=== PATIENT | male | born 1975 | race Caucasian/White ===

== ENCOUNTER 2018-12-11 15:25 | Inpatient (IN) ==
[2018-12-11] MEDS ORDERED: SODIUM CHLORIDE 0.9% 1000ML 1,000 ML IV ONE (15:56)
[2018-12-11] MEDS ORDERED: KETOROLAC TROMETHAMINE 15 MG/ML VIAL IV STA (15:56)
[2018-12-11 16:05] LABS: Basophils # (auto) 0.03 K/uL (0-0.2); Basophils % (auto) 0.2 %; Eosinophils # (auto) 0.47 K/uL (0-0.5); Eosinophils % (auto) 3.9 %; Hematocrit (blood only) 41.2 % (42-52); Immature Granulocytes # (auto) 0.06 K/uL (0.00-0.02); Immature Granulocytes % (auto) 0.5 %; Lymphocytes # (auto) 2.16 K/uL (1.2-3.4); Lymphocytes % (auto) 17.7 %; Mean Corpuscular Hemoglobin 29.5 pg (25-34); Mean Corpuscular Volume 86.7 fL (80-100); Mean Platelet Volume 9.3 fL (7.4-10.4); Monocytes # (auto) 1.44 K/uL (0.11-0.59); Monocytes % (auto) 11.8 %; Neutrophils # (auto) 8.03 K/uL (1.4-6.5); Neutrophils % (auto) 65.9 %; Platelet Count 376 K/uL (130-400); RDW Standard Deviation 41.6 fL (36.4-46.3); Red Blood Count 4.75 M/uL (4.7-6.1); White Blood Count 12.19 K/uL (4.8-10.8)
--- NOTE | 2018-12-11 16:05 | Emergency Department Note ---
History of Present Illness General Chief complaint: Chest Pain Stated complaint: CHEST PAIN History of Present Illness Maximum Pain Intensity: 7 This patient is a 43-year-old male who presents ambulatory to the emergency department for evaluation of constant, sharp, stabbing right-sided chest pain for the last 3 weeks. The pain is worse with deep inspiration and movement. He is also feeling short of breath. He denies any productive cough. He has not taken anything for the pain. He also reports getting sweaty and dizzy today. No cardiac history to his knowledge. The patient quit smoking 1 pack/day a few months ago. He denies any leg pain. No recent travel. The patient is incarcerated. Home Medications Home Medications Medication Instructions Recorded Confirmed Type amlodipine 10 mg PO DAILY 12/11/18 12/11/18 History chlorthalidone 50 mg PO DAILY 12/11/18 12/11/18 History ibuprofen 600 mg PO TID 12/11/18 12/11/18 History omeprazole 40 mg PO DAILY 12/11/18 12/11/18 History Allergies Allergy/AdvReac Type Severity Reaction Status Date / Time No Known Drug Allergies Allergy Unknown Unverified 12/11/18 16:13 Past Med/Surg History Medical History No pertinent past medical history Social History Preferred Language: Ukrainian Communication Ability: Effective Wound Care Coordinator Required: No Beliefs That Will Affect Care: None Current Living Situation: Other Current Living Situation Comment: [facility] Feels Safe at Home: Yes Smoking Status: Former smoker Tobacco Type: cigarettes ; Second Hand Exposure: Yes ; Hx Alcohol Use: No Hx Substance Use: Yes substance use type: opiates and IV drugs Review of Systems A total of 10 systems reviewed and were otherwise negative Physical Exam Vital Signs Vital Signs - 24 hr 12/11/18 15:33 Temperature 37 C Temperature Source Oral Sepsis Recent Fever Within 48 Hours No Sepsis New/Unexplained Change in Mental Status No Sepsis Action Taken by Nursing No Action Required Pulse Rate 111 H Respiratory Rate 20 Respiratory Effort / Characteristics Non-Labored Respiratory Depth Normal Blood Pressure 146/94 H Blood Pressure Mean 111 Pulse Oximetry 93 Oxygen Delivery Method Room Air Constitutional WD/WN, vitals as above Eyes EOM intact bilaterally ENMT external ear and nose normal, oropharynx normal Neck trachea midline Respiratory normal respiratory effort, lungs clear to auscultation Cardiovascular RRR, no murmur, no edema Chest (Breasts) Additional Comments: Minor tenderness to palpation over the anterior right chest. Gastrointestinal (Abdomen) normal bowel sounds, soft, nontender, no hepatosplenomegaly Musculoskeletal no cyanosis or clubbing, extremities motor strength 5/5 Skin no rashes, warm and dry Neurologic Alert and oriented x3. No focal motor deficits. Psychiatric Acting appropriately Course Patient was seen and examined Vital signs including blood pressure were reviewed medications list was verified with patient Labs were obtained, and a saline lock was established EKG was performed and reviewed. The patient was put on a monitor. The patient was given Toradol 15 mg IV for pain. He was hydrated with 1 L of normal saline. Imaging was performed and reviewed Upon reevaluation, the patient was slightly more comfortable. We discussed his work-up. He voiced understanding. We discussed disposition options. He was in agreement to staying in the emergency department. He was ordered an additional dose of Toradol 15 mg IV. The case was discussed with case management and subsequently the [facility] hospitalist service. They agreed to evaluate the patient for possible inpatient management. Patient remained stable in the emergency department. Consultations Consultation #1: Hospitalist service Administered Medications Discontinued Medications Amlodipine Besylate (Norvasc) 10 mg PO DAILY [facility] Stop: 01/11/19 08:59 Last Admin: 12/12/18 08:59 Dose: 10 mg Documented by: [id number] Baclofen (Lioresal) 10 mg PO TID [facility] Stop: 01/10/19 22:29 Last Admin: 12/12/18 14:26 Dose: 10 mg Documented by: [id number] Admin: 12/12/18 08:59 Dose: 10 mg Documented by: [id number] Admin: 12/11/18 22:41 Dose: 10 mg Documented by: [id number] Chlorthalidone (Hygroton) 50 mg PO DAILY [facility] Stop: 01/11/19 08:59 Last Admin: 12/12/18 08:59 Dose: 50 mg Documented by: [id number] Enoxaparin Sodium (Lovenox) 40 mg SQ DAILY@2200 [facility] Stop: 01/10/19 22:29 Last Admin: 12/11/18 22:40 Dose: 40 mg Documented by: [id number] Sodium Chloride (Nss 1000ml) 1,000 mls @ 999 mls/hr IV .Q1H1M ONE Stop: 12/11/18 16:56 Last Infusion: 12/11/18 17:02 Dose: 0 mls/hr Documented by: [id number] Admin: 12/11/18 16:01 Dose: 999 mls/hr Documented by: [id number] Ioversol (Optiray 320 125ml) 120 ml IV ONCE PRN PRN Reason: Interaction Checking Stop: 12/15/18 16:46 Last Admin: 12/11/18 16:47 Dose: 120 ml Documented by: [id number] Ketorolac Tromethamine (Toradol) 15 mg IV NOW STA Stop: 12/11/18 15:57 Last Admin: 12/11/18 16:01 Dose: 15 mg Documented by: [id number] Ketorolac Tromethamine (Toradol) 15 mg IV Q6H PRN PRN Reason: Pain Stop: 12/16/18 21:54 Last Admin: 12/12/18 00:05 Dose: 15 mg Documented by: [id number] Pantoprazole Sodium (Protonix) 40 mg PO DAILY KEITH; Protocol Stop: 01/11/19 08:59 Last Admin: 12/12/18 08:59 Dose: 40 mg Documented by: [id number] Medical Decision Making Medical Records Attestation: I reviewed the patient's medical records. Home Medications Current Medication List: was personally reviewed by me Laboratory Data Attestation: I reviewed the patient's lab results. Result diagrams: 12/12/18 06:42 12/12/18 06:42 Lab Results 12/11/18 12/11/18 12/11/18 Range/Units 15:45 15:45 15:45 WBC 12.19 H (4.8-10.8) K/uL RBC 4.75 (4.7-6.1) M/uL Hgb 14.0 (14.0-18.0) g/dL Hct 41.2 L (42-52) % MCV 86.7 (80-100) fL MCH 29.5 (25-34) pg MCHC 34.0 (32-36) g/dL RDW Std Deviation 41.6 (36.4-46.3) fL RDW Coeff of Elier 13.0 (11.5-14.5) % Plt Count 376 (130-400) K/uL MPV 9.3 (7.4-10.4) fL Immature Gran % (Auto) 0.5 % Neut % (Auto) 65.9 % Lymph % (Auto) 17.7 % Rosebud % (Auto) 11.8 % Eos % (Auto) 3.9 % Baso % (Auto) 0.2 % Immature Gran # (Auto) 0.06 H (0.00-0.02) K/uL Neut # (Auto) 8.03 H (1.4-6.5) K/uL Lymph # (Auto) 2.16 (1.2-3.4) K/uL Rosebud # (Auto) 1.44 H (0.11-0.59) K/uL Eos # (Auto) 0.47 (0-0.5) K/uL Baso # (Auto) 0.03 (0-0.2) K/uL PT 9.9 (9.0-12.0) Seconds INR 1.0 (0.9-1.1) Sodium 137 (136-145) mmol/L Potassium 3.3 L (3.5-5.1) mmol/L Chloride 103 (98-107) mmol/L Carbon Dioxide 27 (21-32) mmol/L Anion Gap 6.0 (3-11) BUN 13 (7-18) mg/dl Creatinine 0.99 (0.6-1.4) mg/dl Est Cr Clr Drug Dosing 169.9 ml/min Est GFR ( Amer) 108.4 Est GFR (Non-Af Amer) 93.6 BUN/Creatinine Ratio 13.4 (10-20) Glucose 112 H (70-99) mg/dl Calcium 9.5 (8.5-10.1) mg/dl Total Bilirubin 0.8 (0.2-1) mg/dl AST 18 (15-37) U/L ALT 28 (12-78) U/L Alkaline Phosphatase 134 H (45-117) U/L Troponin I < 0.015 (0-0.045) ng/ml Total Protein 8.4 H (6.4-8.2) gm/dl Albumin 3.7 (3.4-5.0) gm/dl Globulin 4.7 H (2.5-4.0) gm/dl Albumin/Globulin Ratio 0.8 L (0.9-2) Lipase 42 L (73-393) U/L Imaging Data Attestation: I personally reviewed and interpreted this imaging study as follows: ECG Data Attestation: I personally reviewed and interpreted this ECG as follows: Indication: chest pain Blood Pressure Blood Pressure Findings: Elevated blood pressure MDM Narrative Differential diagnosis: Pulmonary embolus, acute myocardial infarction, cardiac arrhythmia, anemia, thyroid abnormality, pneumothorax, pneumonia, bronchitis, pericarditis, electrolyte imbalance, among others This patient is a 43-year-old male presents to the emergency department for evaluation of right-sided chest pain. On exam, he was tachycardic. O2 was stable EKG shows sinus tachycardia. Troponin was negative. Labs reveal mild leukocytosis and hypokalemia.. The patient reports a family history of PE and he is currently incarcerated. This is what I was most concerned about. We proceeded with a CT. This is consistent with likely metastatic lung CA. There was motion artifact on the CT. There is a slight possibility still for pulmonary embolus. The patient will be likely admitted to the hospitalist service. We will defer to them for further management such as anticoagulation and further imaging Impression & Plan Chest pain, Pulmonary nodules/lesions, multiple Discharge Plan Visit Data *Final* Discharge Date/Time: 12/11/18 21:19 Chief Complaint: Chest Pain Stated Complaint: CHEST PAIN ED Provider: Eduar Durán ED Midlevel Provider: Tasha Villalba Discharge Problem: Chest pain, Pulmonary nodules/lesions, multiple Patient Disposition: Admitted As Inpatient Condition: Good Discharge Instructions Interventions: ED Discharge Assessment Last Done: 12/11/18 21:19
[2018-12-11 16:16] LABS: Prothrombin Time 9.9 Seconds (9.0-12.0)
[2018-12-11 16:18] LABS: Alanine Aminotransferase 28 U/L (12-78); Albumin Level 3.7 gm/dl (3.4-5.0); Aspartate Aminotransferase 18 U/L (15-37); BUN Creatinine Ratio 13.4 (10-20); Blood Urea Nitrogen 13 mg/dl (7-18); Calcium 9.5 mg/dl (8.5-10.1); Carbon Dioxide 27 mmol/L (21-32); Chloride 103 mmol/L (98-107); Creatinine Clr Calc Pharmacy 169.9 ml/min; Est GFR (African American) 108.4; Est GFR (Non-African American) 93.6; Glucose 112 mg/dl (70-99); Lipase 42 U/L (73-393); Potassium 3.3 mmol/L (3.5-5.1); Sodium 137 mmol/L (136-145)
[2018-12-11 16:23] LABS: Albumin Globulin Ratio 0.8 (0.9-2); Alkaline Phosphatase 134 U/L (45-117); Bilirubin,Total 0.8 mg/dl (0.2-1); Globulin 4.7 gm/dl (2.5-4.0); Total Protein 8.4 gm/dl (6.4-8.2); Troponin I < 0.015 ng/ml (0-0.045)
[2018-12-11] MEDS ORDERED: OPTIRAY 320 125ml IV PRN (16:47)
--- NOTE | 2018-12-11 17:08 | CT Scan Report ---
CT angio chest PE protocol CLINICAL HISTORY: 43 years-old Male presenting with right-sided chest pain, family history of pulmona ry embolus. TECHNIQUE: Multidetector CT angiography of the chest was performed after administration of intravenou s contrast. 3-D volumetric and/or maximum intensity projection (MIP) images were subsequently reconst ructed for review. IV contrast: 120 mL of Optiray 320. One or more dose lowering techniques were used consistent with the principles of ALARA (as low as reasonably achievable), including automatic expos ure control, mA or kV adjustment to individual patient size, and/or use of iterative reconstruction. COMPARISON: None. CT DOSE (mGy.cm): The estimated cumulative dose is 794.56 mGy.cm. FINDINGS: Volunteer Patient Representative topogram: Unremarkable. Pulmonary vasculature: The study is suboptimal for the assessment of the pulmonary vascular tree secondary to timing of the contrast bolus and respiratory motion artifact. Allowing for limited image quality, no central fillin g defect to suggest pulmonary embolus. Main pulmonary artery is not enlarged. No flattening of the in terventricular septum. No intracardiac filling defect. No reflux of contrast into the hepatic veins. Remaining chest: Soft tissues: Normal thyroid and thoracic inlet. No axillary, supraclavicular, mediastinal, or hilar lymphadenopathy. Normal aorta. Top normal heart size. No pericardial or pleural effusion. Upper abdom en normal. Lungs and airways: No pneumothorax. Mild bronchial wall thickening evident diffusely. Incidental note made of an azygos fissure. Pulmonary arteries are not significantly enlarged relative to adjacent br onchi. No interlobular septal thickening. Bandlike opacities in the lingula and to a lesser extent th e right middle lobe. Solid peribronchovascular nodule in the right middle lobe measuring approximatel y 13 mm (series 4 image 116). Mild dependent groundglass opacity likely atelectasis. Musculoskeletal: Destructive lytic changes in the T2 vertebral body with mild central predominant hei ght loss. Multiple vague sclerotic foci are also evident. Less well-defined lytic lesion in the T4 an d T10 vertebral bodies. Several sclerotic lesions evident in the sternum. IMPRESSION: 1. Allowing for suboptimal image quality, no evidence of pulmonary embolus. 2. Multiple mixed lytic and sclerotic osseous lesions highly concerning for metastatic disease. Ther e is also a mild pathologic compression deformity of T2. Correlate with an underlying malignancy. Con track welder PET CT for further evaluation. 3. Mild bronchial wall thickening could indicate smoking-related lung injury or bronchitis. 4. Solid 13 mm peribronchovascular nodule in the right middle lobe. This is concerning for either a metastatic focus or primary malignancy. Differential consideration also includes pathologic perihilar lymph node. The report will be called/faxed according to standard departmental protocol. Electronically signed by: Patrick Mccullough M.D. 12/11/2018 5:06 PM
--- NOTE | 2018-12-11 21:03 | History & Physical Report ---
Date of Service December 11, 2018 Assessment & Plan (1) Pulmonary nodules/lesions, multiple: Admit to [facility] on telemetry Vital signs every 4 hours Replenish electrolytes as needed Follow-up CBC CMP daily Consult pulmonary for pulmonary lesions/nodule possible metastatic disease Urine analysis pending Patient has elevated leukocyte count possibly due to bronchitis. Started ceftriaxone and doxycycline empirically. Duo nebs every 4 hours. Symbicort 2 puffs twice daily. DVT prophylaxis with Lovenox Present on Admission?: Yes (2) Hypertension: Appears to be stable Continue amlodipine 10 mg p.o. daily Continue chlorthalidone 50 mg p.o. daily Present on Admission?: Yes (3) Pleurisy: Most likely due to multiple lytic lesions and mild pathologic compression of T2. Possibly nerve block would help. Consider consulting pain management. For thyroid being continue with Toradol 15 mg every 6 hours as needed for pain and baclofen 10mg 3 times daily for muscle spasm. Present on Admission?: Yes History of Present Illness Chief Complaint: Shortness of breath Primary Care Provider: CELE Shah Patient is a 43 years old male prisoner with past medical history of hypertension who presented to the emergency room with a complaint of one sitting pain located at the right side of his chest and radiating from his back to the front of his chest. Patient said he was taking ibuprofen for pain 600 mg p.o. 3 times daily but that did not take care of his pain. Patient said the pain is stabbing and associated with breathing and movements. Patient said that this has been ongoing for at least 1 months. He said he was seen by the medical at the skilled nursing. Patient reports that nothing relieves his pain. Patient reports his appetite is as usual. Patient is mildly obese. Patient said today he was very short of breath and tachycardic and that brought him to the emergency room. He also felt dizzy. Patient denies productive cough. He reports a dry cough. Patient also reports being sweaty on occasions. Patient stop smoking in August. Prior to that he was smoking 1 pack/day for 20 years. Patient also used heroine and opioids but weaned himself off 7 years ago. Labs are reviewed: Viable cell 12.19, hemoglobin 14, hematocrit 41.2, platelets 376, PT 9.9, INR 1, sodium 137, potassium 3.3, AST 18 ALT 28, alkaline phosphatase 134, troponin 0 0.015, lipase 42. CTA of chest was done without the patient possibly had pulmonary embolism. There is no evidence of pulmonary embolism. Multiple mixed lytic and sclerotic osseous lesions highly concerning for metastatic disease. There is also a mild pathological compression deformity of T2. Radiology recommends PET/CT scan for further evaluation. Mild bronchial wall thickening could indicate smoking- related lung injury or bronchitis. Solid 13 mm 30 bronchovascular nodule in the right middle lobe is seen. This is also concern of metastatic focus or primary malignancy. Urine culture pending, procalcitonin pending. Decision was made to admit patient for [facility] Allergies Allergy/AdvReac Type Severity Reaction Status Date / Time No Known Drug Allergies Allergy Unknown Unverified 12/11/18 16:13 Home Medications Home Medications Medication Instructions Recorded Confirmed Type amlodipine 10 mg PO DAILY 12/11/18 12/11/18 History amoxicillin 500 mg PO TID 12/11/18 12/11/18 History chlorthalidone 50 mg PO DAILY 12/11/18 12/11/18 History ibuprofen 600 mg PO TID 12/11/18 12/11/18 History omeprazole 40 mg PO DAILY 12/11/18 12/11/18 History Past Med/Surg History Medical History No pertinent past medical history Social History Preferred Language: Wolof Smoking Status: Former smoker Review of Systems Review of Systems: All systems reviewed & are unremarkable except as noted in HPI & below Physical Exam Constitutional: WD/WN, vitals as above well developed and + obese Eyes: PERRL, conjunctivae normal, anicteric sclerae ENMT: external ear and nose normal, oropharynx normal Neck: trachea midline, no thyromegaly Respiratory: normal respiratory effort Auscultation: + wheezes Cardiovascular: RRR, no murmur, no edema Vessels: normal peripheral pulses and dorsalis pedis pulses present Gastrointestinal (Abdomen): normal bowel sounds, soft, nontender, no hepatosplenomegaly Musculoskeletal: no cyanosis or clubbing, extremities motor strength 5/5 Skin: no rashes, warm and dry Neurologic: patellar DTR's 2+ bilat, sensation intact Psychiatric: A+Ox3, euthymic affect Lymphatic: no cervical or axillary lymphadenopathy Results & Data Vital Signs (Past 12 Hours) Vital Signs Temp Pulse Resp BP Pulse Ox 12/11/18 20:00 96 H 13 133/100 12/11/18 19:30 103 H 15 122/75 12/11/18 19:00 98 H 20 154/98 H 12/11/18 18:30 86 17 137/82 95 12/11/18 18:00 85 17 115/77 96 12/11/18 17:30 86 17 135/90 96 12/11/18 17:15 84 18 119/80 98 12/11/18 16:30 90 17 93 12/11/18 16:04 97 H 18 124/87 94 12/11/18 16:00 101 H 15 94 12/11/18 15:48 110 H 14 96 12/11/18 15:33 37 C 111 H 20 146/94 H 93 Code Status & VTE Plan Code Status Full code VTE Prophylaxis Plan VTE Prophylaxis will be ordered: Yes PG Care Time/CCT Total # of Minutes Spent Total Time Spent with Patient: Total time spent is greater than 50% in coordination of care (as documented) at patient's floor/unit and/or counseling patient:
[2018-12-11] MEDS ORDERED: POLYETHYLENE (MIRALAX) 17 GM PACK PO PRN (21:55)
[2018-12-11] MEDS ORDERED: MAGNESIUM HYDROXIDE SUSP 30 ML UDC PO PRN (21:55)
[2018-12-11] MEDS ORDERED: ALUMINUM/MAGNESIUM SUSP 30 ML UDC PO PRN (21:55)
[2018-12-11] MEDS ORDERED: ACETAMINOPHEN 325 MG TAB PO PRN (21:55)
[2018-12-11] MEDS ORDERED: ONDANSETRON INJ 2 MG/ML 2 ML VIAL IV PRN (21:55)
[2018-12-11] MEDS ORDERED: KETOROLAC TROMETHAMINE 15 MG/ML VIAL IV PRN (21:55)
[2018-12-11] MEDS ORDERED: ZOLPIDEM TARTRATE 5 MG TAB PO PRN (21:55)
[2018-12-11] MEDS ORDERED: ENOXAPARIN INJ 40 MG/0.4 ML SYR SQ SCH (22:30)
[2018-12-11] MEDS: BACLOFEN 10 MG TAB PO SCH (22:41)
[2018-12-12 06:59] LABS: Basophils # (auto) 0.03 K/uL (0-0.2); Basophils % (auto) 0.4 %; Eosinophils # (auto) 0.57 K/uL (0-0.5); Eosinophils % (auto) 7.1 %; Hematocrit (blood only) 37.4 % (42-52); Hemoglobin 12.5 g/dL (14.0-18.0); Immature Granulocytes # (auto) 0.04 K/uL (0.00-0.02); Immature Granulocytes % (auto) 0.5 %; Lymphocytes # (auto) 2.53 K/uL (1.2-3.4); Lymphocytes % (auto) 31.5 %; Mean Corpuscular Hemoglobin 29.3 pg (25-34); Mean Corpuscular Hgb Conc 33.4 g/dL (32-36); Mean Corpuscular Volume 87.6 fL (80-100); Mean Platelet Volume 9.3 fL (7.4-10.4); Monocytes # (auto) 0.81 K/uL (0.11-0.59); Monocytes % (auto) 10.1 %; Neutrophils # (auto) 4.05 K/uL (1.4-6.5); Neutrophils % (auto) 50.4 %; Platelet Count 319 K/uL (130-400); RDW Coefficient of Variation 13.3 % (11.5-14.5); RDW Standard Deviation 42.5 fL (36.4-46.3); Red Blood Count 4.27 M/uL (4.7-6.1); White Blood Count 8.03 K/uL (4.8-10.8)
[2018-12-12 07:31] LABS: BUN Creatinine Ratio 18.3 (10-20); Calcium 8.9 mg/dl (8.5-10.1); Creatinine Clr Calc Pharmacy 176.5 ml/min; Est GFR (African American) 133.4; Est GFR (Non-African American) 115.1
[2018-12-12 07:34] LABS: Albumin Globulin Ratio 0.7 (0.9-2); Bilirubin,Total 0.9 mg/dl (0.2-1)
[2018-12-12] MEDS: BACLOFEN 10 MG TAB PO SCH ×2 (08:59→14:26)
[2018-12-12] MEDS ORDERED: AMLODIPINE BESYLATE 5 MG TAB PO SCH (09:00)
[2018-12-12] MEDS ORDERED: CHLORTHALIDONE 25 MG TAB PO SCH (09:00)
[2018-12-12] MEDS ORDERED: PANTOprazole 40 MG TAB PO SCH (09:00)
[2018-12-12 11:02] VITALS: PULSE 86; TEMP 97.7; O2SAT 93
--- NOTE | 2018-12-12 12:20 | Discharge Summary ---
Date of Service December 12, 2018 Admission HPI Per Admitting Provider Patient is a 43 years old male prisoner with past medical history of hypertension who presented to the emergency room with a complaint of one sitting pain located at the right side of his chest and radiating from his back to the front of his chest. Patient said he was taking ibuprofen for pain 600 mg p.o. 3 times daily but that did not take care of his pain. Patient said the pain is stabbing and associated with breathing and movements. Patient said that this has been ongoing for at least 1 months. He said he was seen by the medical at the [facility]. Patient reports that nothing relieves his pain. Patient reports his appetite is as usual. Patient is mildly obese. Patient said today he was very short of breath and tachycardic and that brought him to the emergency room. He also felt dizzy. Patient denies productive cough. He reports a dry cough. Patient also reports being sweaty on occasions. Patient stop smoking in August. Prior to that he was smoking 1 pack/day for 20 years. Patient also used heroine and opioids but weaned himself off 7 years ago. Labs are reviewed: Viable cell 12.19, hemoglobin 14, hematocrit 41.2, platelets 376, PT 9.9, INR 1, sodium 137, potassium 3.3, AST 18 ALT 28, alkaline phosphatase 134, troponin 0 0.015, lipase 42. CTA of chest was done without the patient possibly had pulmonary embolism. There is no evidence of pulmonary embolism. Multiple mixed lytic and sclerotic osseous lesions highly concerning for metastatic disease. There is also a mild pathological compression deformity of T2. Radiology recommends PET/CT scan for further evaluation. Mild bronchial wall thickening could indicate smoking- related lung injury or bronchitis. Solid 13 mm 30 bronchovascular nodule in the right middle lobe is seen. This is also concern of metastatic focus or primary malignancy. Urine culture pending, procalcitonin pending. Decision was made to admit patient for further evaluation of shortness of breath and [facility] Admission Exam Per Admitting Provider Constitutional: WD/WN, vitals as above well developed and + obese Eyes: PERRL, conjunctivae normal, anicteric sclerae ENMT: external ear and nose normal, oropharynx normal Neck: trachea midline, no thyromegaly Respiratory: normal respiratory effort Auscultation: + wheezes Cardiovascular: RRR, no murmur, no edema Vessels: normal peripheral pulses and dorsalis pedis pulses present Gastrointestinal (Abdomen): normal bowel sounds, soft, nontender, no hepatosplenomegaly Musculoskeletal: no cyanosis or clubbing, extremities motor strength 5/5 Skin: no rashes, warm and dry Neurologic: patellar DTR's 2+ bilat, sensation intact Psychiatric: A+Ox3, euthymic affect Lymphatic: no cervical or axillary lymphadenopathy Principal Diagnosis 1., Intractable back pain, likely secondary to radiculopathy from thoracic spine 2. Right middle lobe mass of unclear etiology, consider primary neoplasm 3. 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 INTEGUMENTARY: Warm, dry, and [place]. HEAD: Normocephalic. EYES: without scleral icterus or trauma. ENT/OROPHARYNX: clear and moist. LYMPHADENOPATHY/NECK: Is supple without lymphadenopathy or meningismus. RESPIRATORY: Lungs clear and equal. CARDIOVASCULAR: Regular rate and rhythm. GI/ABDOMEN: Soft and nontender. No organomegaly or pulsatile mass. No rebound or guarding. Normal bowel sounds. EXTREMITIES: Warm and well perfused. BACK: No CVA tenderness. NEUROLOGICAL: Intact without focal deficits. PSYCHIATRIC: normal affect. MUSCULOSKELETAL: Normally developed with good muscle tone. Discharge Data Allergies Allergy/AdvReac Type Severity Reaction Status Date / Time No Known Drug Allergies Allergy Unknown Unverified 12/11/18 16:13 Consultations 12/11/18 18:55 ED Decision to Admit Stat 12/11/18 21:55 Consult Thoracic Surgery Routine Ordered Studies 12/11/18 15:56 CT angio chest PE protocol Stat CT angio chest PE protocol CLINICAL HISTORY: 43 years-old Male presenting with right-sided chest pain, family history of pulmonary embolus. TECHNIQUE: Multidetector CT angiography of the chest was performed after administration of intravenous contrast. 3-D volumetric and/or maximum intensity projection (MIP) images were subsequently reconstructed for review. IV contrast: 120 mL of Optiray 320. One or more dose lowering techniques were used consistent with the principles of ALARA (as low as reasonably achievable), including automatic exposure control, mA or kV adjustment to individual patient size, and/or use of iterative reconstruction. COMPARISON: None. CT DOSE (mGy.cm): The estimated cumulative dose is 794.56 mGy.cm. 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 Pulmonary vasculature: The study is suboptimal for the assessment of the pulmonary vascular tree secondary to timing of the contrast bolus and respiratory motion artifact. Allowing for limited image quality, no central filling defect to suggest pulmonary embolus. Main pulmonary artery is not enlarged. No flattening of the interventricular septum. No intracardiac filling defect. No reflux of contrast into the hepatic veins. Remaining chest: Soft tissues: Normal thyroid and thoracic inlet. No axillary, supraclavicular, mediastinal, or hilar lymphadenopathy. Normal aorta. Top normal heart size. No pericardial or pleural effusion. Upper abdomen normal. Lungs and airways: No pneumothorax. Mild bronchial wall thickening evident diffusely. Incidental note made of an azygos fissure. Pulmonary arteries are not significantly enlarged relative to adjacent bronchi. No interlobular septal thickening. Bandlike opacities in the lingula and to a lesser extent the right middle lobe. Solid peribronchovascular nodule in the right middle lobe measuring approximately 13 mm (series 4 image 116). Mild dependent groundglass opacity likely atelectasis. Musculoskeletal: Destructive lytic changes in the T2 vertebral body with mild central predominant height loss. Multiple vague sclerotic foci are also evident. Less well-defined lytic lesion in the T4 and T10 vertebral bodies. Several sclerotic lesions evident in the sternum. IMPRESSION: 1. Allowing for suboptimal image quality, no evidence of pulmonary embolus. 2. Multiple mixed lytic and sclerotic osseous lesions highly concerning for metastatic disease. There is also a mild pathologic compression deformity of T2. Correlate with an underlying malignancy. Consider PET CT for further evaluation. 3. Mild bronchial wall thickening could indicate smoking-related lung injury or bronchitis. 4. Solid 13 mm peribronchovascular nodule in the right middle lobe. This is concerning for either a metastatic focus or primary malignancy. Differential consideration also includes pathologic perihilar lymph node. The report will be called/faxed according to standard departmental protocol. Hospital Course (1) Pulmonary nodules/lesions, multiple: The patient was admitted to the hospital after being transported from the [facility] complaining of chest and back pain as described above. CT scan showed questionable right middle lobe finding along with some bronchial thickening that was concerning for bronchitis. Patient appears to been treated for pain at the present with NSAIDs which were ineffective. Addendum: I did speak to Dr. Cuevas regarding the patient's care. He does not feel that the nodule is a mass, but rather lymph node. However, he does have bony destruction which he feels may be metastatic disease. He has no problem with discharging the patient back to [facility]. He is told me he will touch base with the physicians there, 1 of whom is an oncologist for further work-up. Therefore, we will discharge patient back to [facility] today. (2) Hypertension: Appears to be stable Continue amlodipine 10 mg p.o. daily Continue chlorthalidone 50 mg p.o. daily (3) Pleurisy: Most likely due to multiple lytic lesions and mild pathologic compression of T2. Possibly nerve block would help. Consider consulting pain management. For thyroid being continue with Toradol 15 mg every 6 hours as needed for pain and baclofen 10mg 3 times daily for muscle spasm. Total Time Total Time Spent Total Time Spent (In Minutes): Discharge time in excess of 30 minutes. Discharge Plan Discharge Items [facility] Disposition: [facility] Reason For Visit: SOB,PULMONARY LESIONS POSSIBLY METASTATIC Discharge Diagnosis: 1. Right middle lobe mass, concerning for primary neoplasm 2. Thoracic compression/degeneration concerning for local metastasis 3. Possible chronic bronchitis. Condition on Discharge: Good Activity: Resume your previous activity Lifting: Gradually increase as tolerated Non-emergency contact: Primary Care Provider and Specialist Call non-emergency contact if: your symptoms worsen Follow-up/Referrals: Pablo OAKLEY [Primary Care Provider] - Diet: Regular Addtl Attending Provider Instructions: Patient will require further work-up of his discrete lung mass as documented. Suggest pulmonology evaluation and PET CT scan as an outpatient if patient is agreeable. Pending Studies at Discharge: No Stand-Alone Forms: Call Back Authorization, [facility] Skilled Items Patient informed of condition?: Yes Discharge Level of Care: Other Communicable Disease: No Discharge Prognosis: Stable Lines: None Urinary Catheter: No Medications and DC Order Prescriptions: Continued chlorthalidone 50 mg Tablet 50 mg PO DAILY RF: 0 amlodipine 10 mg Tablet 10 mg PO DAILY RF: 0 omeprazole 40 mg Capsule,Delayed Release(Dr/Ec) 40 mg PO DAILY RF: 0 ibuprofen 600 mg Tablet 600 mg PO TID RF: 0 Discontinued amoxicillin 500 mg Capsule 500 mg PO TID RF: 0 Admission Data Admit Date/Time: 12/11/18 20:47 Attending Provider: Samuel Macias Admit Provider: Ryan Du Primary Care Provider: aPblo OAKLEY Other Providers: Jacob Cuevas ; Ryan Du Other Interventions: Discharge Summary Assessment (RN) Last Done: 12/12/18 12:42
[2018-12-12 15:44] VITALS: BP 122/85
--- NOTE | 2018-12-12 16:57 | Family Medicine Progress Note ---
Date of Service December 12, 2018 Assessment & Plan (1) Pulmonary nodules/lesions, multiple: The patient was admitted to the hospital after being transported from the group home complaining of chest and back pain as described above. Patient feels much better. We are awaiting thoracic surgery to evaluate the patient's discrete 1.3 cm nodule. Suspect patient will require further outpatient work-up including a PET CT. (2) Hypertension: Appears to be stable Continue amlodipine 10 mg p.o. daily Continue chlorthalidone 50 mg p.o. daily (3) Pleurisy: I feel that the pain is most likely secondary to thoracic degeneration rather than pleurisy considering CT scan results. Patient tells us that he is currently asymptomatic with no further pain. We will continue to monitor, consider pain management versus palliative care depending on outcome. Subjective Late entry. Patient seen and examined earlier today. Patient tells me that he wants to return to the group home. I did discuss possible need for further work-up and he is willing now to stay. Patient tells me that his pain is completely resolved and is having no shortness of breath or other issues at this time. Review of Systems Review of Systems: All systems reviewed & are unremarkable except as noted in HPI & below Physical Exam Physical Exam: GENERAL: Non-toxic in appearance. INTEGUMENTARY: Warm, dry, and [place]. HEAD: Normocephalic. EYES: without scleral icterus or trauma. ENT/OROPHARYNX: clear and moist. LYMPHADENOPATHY/NECK: Is supple without lymphadenopathy or meningismus. RESPIRATORY: Lungs clear and equal. CARDIOVASCULAR: Regular rate and rhythm. GI/ABDOMEN: Soft and nontender. No organomegaly or pulsatile mass. No rebound or guarding. Normal bowel sounds. EXTREMITIES: Warm and well perfused. BACK: No CVA tenderness. NEUROLOGICAL: Intact without focal deficits. PSYCHIATRIC: normal affect. MUSCULOSKELETAL: Normally developed with good muscle tone. Results & Data Vital Signs (Past 12 Hours) Vital Signs Temp Pulse Resp BP Pulse Ox 12/12/18 15:43 36.5 C 86 18 122/85 93 12/12/18 12:42 36.5 C 86 16 149/86 H 93 12/12/18 11:02 36.5 C 86 16 149/86 H 93 12/12/18 06:55 36.4 C L 67 18 119/72 95 PG Care Time/CCT Total # of Minutes Spent Total Time Spent with Patient: Total time spent is greater than 50% in coordination of care (as documented) at patient's floor/unit and/or counseling patient:
--- NOTE | 2018-12-12 18:34 | Consultation Report ---
DATE OF CONSULTATION: 12/12/2018 REASON FOR CONSULTATION: Possible lung mass. HISTORY OF PRESENT ILLNESS: Bharat Melvin is a 43-year-old male who is incarcerated at [facility] who has had 3 weeks of pain in his right posterior chest radiating around to the front. He denies any traumatic injuries. He has not lost weight. He has had no pulmonary symptoms. He has no hematuria, hematochezia or any other GI or symptoms. Denies any palpitations. Pain has been unremitting and it was "really bad" when he got here yesterday; however, it has resolved at this point and he feels better. He would like to go back to [facility] if possible. I was asked to see him because a CT scan of his chest showed a right hilar abnormality. PAST MEDICAL HISTORY: 1. Obesity. 2. History of cigarette smoking, although he is not smoking now due to the pain on smoking this past summer. 3. Cholelithiasis. 4. Hypertension. PAST SURGICAL HISTORY: Cholecystectomy. MEDICATIONS AT HOME: 1. Amlodipine. 2. Amoxicillin. 3. Chlorthalidone. 4. Omeprazole. 5. Ibuprofen. ALLERGIES: No known drug allergies. SOCIAL HISTORY: The patient is originally from [place], [place]. He is incarcerated at [facility]. He was a smoker but quit smoking this past summer when it was banded in the prisons. FAMILY MEDICAL HISTORY: The patient has 3 children, 5 siblings who are healthy. His mother is still alive. His father at age 39 from metastatic cancer. He stated it started in his bowel and when he was operated on, he developed a deep vein thrombosis with pulmonary emboli. As stated he was only 40. REVIEW OF SYSTEMS: The patient states that his weight has been stable. He denies night sweats. He has had no fevers or chills. He has had no productive cough. He has had no hemoptysis, hematemesis. He has had no hematochezia. He has had no palpitations or chest pain. He has had no joint swelling. He has had no skin breakdown. He has had no visual or auditory symptoms, although he does wear glasses. PHYSICAL EXAMINATION: GENERAL: This is a 5 feet 8 inch, 290 pound male who is awake, alert and oriented. HEENT: He wears glasses. He has no nasolabial flattening. His sclerae are pale, but anicteric. His pupils are equally round. Tongue is midline. He has normal mucosal lesions. He is missing his lower teeth. His upper teeth are in poor repair. He has no oropharyngeal lesions. NECK: Thick, but supple. He has no supraclavicular or cervical lymphadenopathy or neck vein distention. He has no carotid bruits. LUNGS: Clear. HEART: He has a regular rate and rhythm of his heart. ABDOMEN: Obese, soft, nontender. EXTREMITIES: He has no hemosiderin deposition or other evidence of venous insufficiency, but he does have what appears to be lymphedema of his lower extremities. He has no joint effusions. He has excellent peripheral pulses. NEUROLOGIC: Completely intact. LABORATORY DATA: I reviewed his CT scan quite carefully and I believe that this right hilar abnormality noted on CT is a hilar node. It is not really very significant. I see no other lung masses. He does have bony lesions. He has compression fracture of T2. His sternum also has osteolytic lesions. In reviewing his lab work, his white count is normal. Hemoglobin was 14 upon admission. His chemistries are really fairly unremarkable except for low potassium. ASSESSMENT AND PLAN: Bony lesions which could be due to multiple different reasons. He is much improved from a pain standpoint, would like to return to the [facility] tonight. I discussed this with Dr. Macias who is the hospitalist covering. I believe he can go back. We will be in contact with the physicians at [facility] to work this patient up as an outpatient.
== END 2018-12-12 19:34 | DRG 181 ==
LOC: ED 15:25 → SUATTDRO 20:47 → 2W 20:47

== ENCOUNTER 2019-07-26 15:41 | Observation (INO) ==
[2019-07-26] MEDS ORDERED: SODIUM CHLORIDE 0.9% 250 ML IV PRN ×3 (15:59→19:39)
[2019-07-26] MEDS ORDERED: SODIUM CHLORIDE 0.9% 500 ML IV SCH (16:00)
--- NOTE | 2019-07-26 16:09 | Emergency Department Note ---
Impression & Plan Acute hypotension, T-cell lymphoma, Anemia, Weakness ED Provider Note NAME: MICHAEL [id number] RAQUEL AGE: 43 SEX: M : 1975 ARRIVES VIA: Walk-In INFORMANT: Patient ED PROVIDER(S): Blane Dougherty DO CHIEF COMPLAINT: Weakness HPI: Patient is a 43-year-old male with a past medical history SVT, lymphoma who presents to the ER for weakness. Patient has received 3 rounds of chemotherapy this week. He believes he got a dose yesterday. Notes he has been feeling much weaker than usual. He denies any headache, chest pain, shortness of breath, nausea vomiting or diarrhea. No dysuria urgency or frequency. No fevers. He notes he is fatigued with any kind of movement which over time has been getting gradually worse for him. He has had 2 previous transfusion before in the past. His hemoglobin was checked and was referred in as his hemoglobin had trended do wn to 6. He denies any dark tarry stools or bright red blood per rectum. No coughing up blood vomiting blood or pink blood. ROS: See above HPI for pertinent positives & negatives. A total of 10 systems reviewed and were otherwise negative. PAST MEDICAL HISTORY:See Below PAST SURGICAL HISTORY:See Below FAMILY HISTORY:See Below SOCIAL HISTORY:See Below HOME MEDICATIONS:See Below ALLERGIES:See Below VITALS:See Below PHYSICAL EXAMINATION: GENERAL: Sitting up in bed, alert, chronically ill-appearing, disheveled, shackled wearing orange jumpsuit EYE EXAM: normal conjunctiva. PERRL and EOM's grossly intact. OROPHARYNX: no exudate, no erythema, lips, buccal mucosa, and tongue normal and mucous membranes are moist NECK: supple, no nuchal rigidity, no adenopathy, non-tender CHEST: Port in left upper chest LUNGS: Clear to auscultation. Normal chest wall mechanics HEART: no murmurs, S1 normal and S2 normal ABDOMEN: abdomen soft, non-tender, normo-active bowel sounds, no masses, no rebound or guarding. BACK: Back is symmetrical on inspection and there is no deformity, no midline tenderness, no CVA tenderness. SKIN: no rashes and no bruising UPPER EXTREMITIES: upper extremities are grossly normal. LOWER EXTREMITIES: No pitting edema. NEURO EXAM: Normal sensorium, cranial nerves II-XII grossly intact, normal speech, no gross weakness of arms, no gross weakness of legs. MEDICAL DECISION MAKING: Patient is a 43-year-old male who presents the ER for weakness. Patient was found to be hypotensive with systolic pressures in the 80s. He was found to be anemic with a leukopenia as well. INR was unremarkable. BMP with slightly elevated chloride. LFTs troponin was unremarkable. Patient was typed and crossed and given 1 unit PRBCs as well as IV fluids. Systolic blood pressure trended up to the low 100s. Patient was updated bedside. He has no belly pain no other complaints. Discussed with the hospitalist for observation secondary to the hypotension and the anemia. I do favor the anemia secondary to the chemotherapy. EKG was unremarkable. Triage Nursing notes reviewed. Prior medical records reviewed Vital Signs: reviewed and remarkable for hypotensive and tachycardic Differential diagnosis: Differential diagnosis includes etiologies such as diverticulitis, diverticulosis, AVM, coagulopathy, colitis, inflammatory bowel disease, malignancy, Mary Ann-Chaudhry tear, esophagitis, peptic ulcer disease, variceal bleed, gastritis, epistaxis, fissure, hemorrhoids, as well as others were entertained. ER treatment provided: See below Diagnostics interpreted by me: ECG: Sinus rhythm rate of 68 Normal axis No PVCs Normal QTC Cardiac Monitoring: An order was placed for continuous cardiac monitoring. The monitor shows a rate of 75 with sinus rhythm. Laboratory studies: As stated above and show below. Imaging studies: None Consultation(s): none ED COURSE: Procedures: none Critical Care: I have personally spent 32 minutes of critical care time in the direct management of this patient. This includes bedside care, interpretation of diagnostic studies, and testing, discussion with consultants, patient, and family members, and other required patient management activities. This 32 minutes is in excess of all separately billable procedures. 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 Required: No Beliefs That Will Affect Care: None Current Living Situation: Other Current Living Situation Comment: [facility] Feels Safe at Home: Yes Smoking Status: Former smoker Tobacco Type: cigarettes ; Second Hand Exposure: Yes ; Hx Alcohol Use: No Allergies Allergies Allergy/AdvReac Type Severity Reaction Status Date / Time No Known Drug Allergies Allergy Unknown Verified 07/26/19 16:34 Home Meds Home Medications Medication Instructions Recorded Confirmed omeprazole 40 mg PO DAILY 12/11/18 07/26/19 promethazine 25 mg PO TID PRN 06/03/19 07/26/19 amlodipine 5 mg PO DAILY 06/25/19 07/26/19 bisacodyl 5 mg PO DAILY PRN 06/25/19 07/26/19 docusate sodium 100 mg PO BID 06/25/19 07/26/19 magnesium citrate 300 ml PO DAILY PRN 06/25/19 07/26/19 acyclovir 400 mg PO BID 07/17/19 07/26/19 allopurinol 300 mg PO DAILY 07/17/19 07/26/19 fluconazole 400 mg PO DAILY 07/17/19 07/26/19 imipramine HCl 10 mg PO HS 07/17/19 07/26/19 oxycodone 10 mg PO Q4 PRN 07/17/19 07/26/19 sulfamethoxazole-trimethoprim 1 tab PO DAILY 07/17/19 07/26/19 atenolol 50 mg PO DAILY 07/26/19 07/26/19 oxycodone 40 mg PO BID 07/26/19 07/26/19 prednisone 100 mg PO DAILY 07/26/19 07/26/19 Results & Data (ED) Vital Signs Vital Signs - 24 hr 07/26/19 15:45 07/26/19 16:10 07/26/19 17:20 Temperature 36.3 C L Temperature Source Oral Pulse Rate 96 H Pulse Rate [Finger] 61 Respiratory Rate 20 20 Blood Pressure 89/59 L Blood Pressure [Right Arm] 90/61 L Blood Pressure Mean 69 Blood Pressure Mean [Right Arm] 70 Blood Pressure Position Sitting Pulse Oximetry 98 94 Oxygen Delivery Method Room Air Room Air Room Air Sepsis Recent Fever Within 48 Hours No Sepsis New/Unexplained Change in Mental Status No Sepsis Action Taken by Nursing No Action Required 07/26/19 17:50 07/26/19 17:52 07/26/19 18:10 Temperature 36.6 C 36.4 C L Temperature Source Oral Oral Pulse Rate 64 57 L Pulse Rate [Finger] 61 Respiratory Rate 15 12 15 Blood Pressure 102/61 99/55 L Blood Pressure [Right Arm] 102/61 Blood Pressure Mean 74 69 Blood Pressure Mean [Right Arm] 74 Blood Pressure Position Sitting Sitting Pulse Oximetry 99 97 100 Oxygen Delivery Method Room Air Sepsis Recent Fever Within 48 Hours Sepsis New/Unexplained Change in Mental Status Sepsis Action Taken by Nursing Laboratory Data Result diagrams: 07/26/19 16:19 07/26/19 16:19 Lab Results 07/26/19 07/26/19 07/26/19 Range/Units 16:19 16:19 16:19 WBC 2.33 L (4.8-10.8) K/uL RBC 2.59 L (4.7-6.1) M/uL Hgb 7.4 L (14.0-18.0) g/dL Hct 22.3 L (42-52) % MCV 86.1 (80-100) fL MCH 28.6 (25-34) pg MCHC 33.2 (32-36) g/dL RDW Std Deviation 52.2 H (36.4-46.3) fL RDW Coeff of Elier 16.9 H (11.5-14.5) % Plt Count 232 (130-400) K/uL MPV 8.8 (7.4-10.4) fL Immature Gran % (Auto) 0.0 % Neut % (Auto) 91.4 % Lymph % (Auto) 7.7 % [place] % (Auto) 0.9 % Eos % (Auto) 0.0 % Baso % (Auto) 0.0 % Immature Gran # (Auto) 0.00 (0.00-0.02) K/uL Neut # (Auto) 2.13 (1.4-6.5) K/uL Lymph # (Auto) 0.18 L (1.2-3.4) K/uL [place] # (Auto) 0.02 L (0.11-0.59) K/uL Eos # (Auto) 0.00 (0-0.5) K/uL Baso # (Auto) 0.00 (0-0.2) K/uL RBC Morphology Unremarkable PT 10.5 (9.0-12.0) Seconds INR 1.0 (0.9-1.1) APTT 20.1 L (21.0-31.0) Seconds PTT Ratio 0.7 Sodium (136-145) mmol/L Potassium (3.5-5.1) mmol/L Chloride (98-107) mmol/L Carbon Dioxide (21-32) mmol/L Anion Gap (3-11) BUN (7-18) mg/dl Creatinine (0.6-1.4) mg/dl Est Cr Clr Drug Dosing Est GFR ( Amer) Est GFR (Non-Af Amer) BUN/Creatinine Ratio (10-20) Glucose (70-99) mg/dl Calcium (8.5-10.1) mg/dl Total Bilirubin (0.2-1) mg/dl AST (15-37) U/L ALT (12-78) U/L Alkaline Phosphatase (45-117) U/L Troponin I (0-0.045) ng/ml Total Protein (6.4-8.2) gm/dl Albumin (3.4-5.0) gm/dl Globulin (2.5-4.0) gm/dl Albumin/Globulin Ratio (0.9-2) Blood Type A Positive Blood Type Recheck Antibody Screen NEGATIVE Crossmatch See Detail 07/26/19 07/26/19 Range/Units 16:19 16:30 WBC (4.8-10.8) K/uL RBC (4.7-6.1) M/uL Hgb (14.0-18.0) g/dL Hct (42-52) % MCV (80-100) fL MCH (25-34) pg MCHC (32-36) g/dL RDW Std Deviation (36.4-46.3) fL RDW Coeff of Elier (11.5-14.5) % Plt Count (130-400) K/uL MPV (7.4-10.4) fL Immature Gran % (Auto) % Neut % (Auto) % Lymph % (Auto) % [place] % (Auto) % Eos % (Auto) % Baso % (Auto) % Immature Gran # (Auto) (0.00-0.02) K/uL Neut # (Auto) (1.4-6.5) K/uL Lymph # (Auto) (1.2-3.4) K/uL [place] # (Auto) (0.11-0.59) K/uL Eos # (Auto) (0-0.5) K/uL Baso # (Auto) (0-0.2) K/uL RBC Morphology PT (9.0-12.0) Seconds INR (0.9-1.1) APTT (21.0-31.0) Seconds PTT Ratio Sodium 140 (136-145) mmol/L Potassium 4.3 (3.5-5.1) mmol/L Chloride 111 H (98-107) mmol/L Carbon Dioxide 23 (21-32) mmol/L Anion Gap 6.0 (3-11) BUN 15 (7-18) mg/dl Creatinine 1.06 (0.6-1.4) mg/dl Est Cr Clr Drug Dosing Not Reportable Est GFR ( Amer) 99.8 Est GFR (Non-Af Amer) 86.1 BUN/Creatinine Ratio 14.3 (10-20) Glucose 112 H (70-99) mg/dl Calcium 9.1 (8.5-10.1) mg/dl Total Bilirubin 0.5 (0.2-1) mg/dl AST 65 H (15-37) U/L ALT 55 (12-78) U/L Alkaline Phosphatase 233 H (45-117) U/L Troponin I < 0.015 (0-0.045) ng/ml Total Protein 5.8 L (6.4-8.2) gm/dl Albumin 3.0 L (3.4-5.0) gm/dl Globulin 2.8 (2.5-4.0) gm/dl Albumin/Globulin Ratio 1.1 (0.9-2) Blood Type Blood Type Recheck A Positive Antibody Screen Crossmatch Administered Medications Acyclovir (Zovirax) 400 mg PO BID KEITH Stop: 08/25/19 20:59 Last Admin: 07/26/19 20:45 Dose: 400 mg Documented by: [id number] Docusate Sodium (Colace) 100 mg PO BID KEITH Stop: 08/25/19 20:59 Last Admin: 07/26/19 20:45 Dose: 100 mg Documented by: [id number] Oxycodone HCl (Oxycontin) 40 mg PO BID KEITH Stop: 08/09/19 20:59 Last Admin: 07/26/19 20:45 Dose: 40 mg Documented by: [id number] Discontinued Medications Sodium Chloride (Nss) 500 mls @ 999 mls/hr IV .[id number] KEITH Stop: 07/26/19 16:30 Last Infusion: 07/26/19 17:28 Dose: 0 mls/hr Documented by: [id number] Admin: 07/26/19 16:56 Dose: 999 mls/hr Documented by: [id number] Discharge Plan Visit Data *Final* Discharge Date/Time: 07/26/19 19:24 Chief Complaint: Abnormal Labs/Diagnostic Testing Stated Complaint: NEEDS BLOOD TRANSFUSION ED Provider: Blane Dougherty Discharge Problem: Acute hypotension, T-cell lymphoma, Anemia, Weakness Patient Disposition: Admitted As Inpatient Discharge Instructions Interventions: ED Discharge Assessment Last Done: 07/26/19 19:24 Discharge Problem: Anemia Qualifiers: Anemia type: unspecified type Qualified Code(s): D64.9 - Anemia, unspecified
[2019-07-26 16:29] LABS: Hematocrit (blood only) 22.3 % (42-52); Hemoglobin 7.4 g/dL (14.0-18.0); Lymphocytes # (auto) 0.18 K/uL (1.2-3.4); Lymphocytes % (auto) 7.7 %; Mean Corpuscular Hemoglobin 28.6 pg (25-34); Mean Corpuscular Hgb Conc 33.2 g/dL (32-36); Mean Corpuscular Volume 86.1 fL (80-100); Mean Platelet Volume 8.8 fL (7.4-10.4); Monocytes # (auto) 0.02 K/uL (0.11-0.59); Monocytes % (auto) 0.9 %; Neutrophils # (auto) 2.13 K/uL (1.4-6.5); Neutrophils % (auto) 91.4 %; Platelet Count 232 K/uL (130-400); RDW Coefficient of Variation 16.9 % (11.5-14.5); RDW Standard Deviation 52.2 fL (36.4-46.3); Red Blood Count 2.59 M/uL (4.7-6.1); White Blood Count 2.33 K/uL (4.8-10.8)
[2019-07-26 16:39] LABS: Partial Thromboplastin Ratio 0.7; Partial Thromboplastin Time 20.1 Seconds (21.0-31.0); Prothrombin Time 10.5 Seconds (9.0-12.0)
[2019-07-26 16:46] LABS: Alanine Aminotransferase 55 U/L (12-78); Aspartate Aminotransferase 65 U/L (15-37); BUN Creatinine Ratio 14.3 (10-20); Blood Urea Nitrogen 15 mg/dl (7-18); Calcium 9.1 mg/dl (8.5-10.1); Carbon Dioxide 23 mmol/L (21-32); Chloride 111 mmol/L (98-107); Est GFR (African American) 99.8; Est GFR (Non-African American) 86.1; Glucose 112 mg/dl (70-99); Potassium 4.3 mmol/L (3.5-5.1); Sodium 140 mmol/L (136-145)
[2019-07-26 16:51] LABS: Albumin Globulin Ratio 1.1 (0.9-2); Alkaline Phosphatase 233 U/L (45-117); Bilirubin,Total 0.5 mg/dl (0.2-1); Globulin 2.8 gm/dl (2.5-4.0); Total Protein 5.8 gm/dl (6.4-8.2); Troponin I < 0.015 ng/ml (0-0.045)
[2019-07-26 16:58] LABS: RBC Morphology Unremarkable
--- NOTE | 2019-07-26 18:15 | History & Physical Report ---
Date of Service July 26, 2019 Assessment & Plan (1) Symptomatic anemia: 43-year-old male with T-cell lymphoma currently undergoing chemotherapy with CHOP-E, here with symptomatic anemia likely secondary to chemotherapy. Hemoglobin 6.9 at the halfway and 7.4 here on recheck. He does have significant bone marrow involvement. With blood pressure in the 80 systolic here now improving with 1 L normal saline bolus and starting PRBC transfusion -Admit to medical floor with telemetry on observation -transfuse 2 units PRBCs -Follow CBC in the morning -We will likely discharge back to halfway tomorrow (2) Fatigue: Likely secondary to ongoing chemotherapy and anemia -Transfuse PRBCs (3) SVT (supraventricular tachycardia): Was here in the ER 1 week ago with SVT that required adenosine -Continue atenolol with hold parameters (4) Lymphoma: T-cell lymphoma, as above being treated with CHOP-E therapy. -Follows with Dr. Poe at the [facility] -Prednisone 100 mg daily x5 days-he received his last dose at the present on the morning of 07/26/2019 -Continue suppressive therapy with acyclovir, Bactrim, and Diflucan (5) Hypertension: Blood pressures low secondary to anemia -Hold home amlodipine -Can give atenolol with hold parameters for blood pressure less than 100 systolic given that he has SVT-1 to prevent future SVT (6) Chest pain: Chronic, secondary to extensive involvement in the chest and sternum of his lymphoma -Continue home OxyContin 40 mg p.o. twice daily with oxycodone immediate release 10 mg p.o. every 4 hours as needed breakthrough pain -Bowel regimen (7) GERD (gastroesophageal reflux disease): Continue PPI (8) DVT prophylaxis: SCDs Disposition-admit on observation for symptomatic anemia and blood transfusion overnight Likely discharge back to halfway tomorrow History of Present Illness Chief Complaint: Weakness, anemia Primary Care Provider: CELE Shah This patient is a 43-year-old male prisoner with a history of T-cell lymphoma, HTN, SVT, GERD, with a recent prolonged stay for 2 to 3 weeks at [facility] in [place] for induction chemotherapy. He presents to the ER today with significant fatigue, was found to have blood pressures in the 80s systolic, and his daily hemoglobin from the halfway was down to 6.9. He denies any lightheadedness or headache, denies chest pains over his usual chronic chest pain from his cancer, and denies shortness of breath. No abdominal pains, denies any nausea or vomiting, denies hematochezia or melena. His last bowel movement was this morning and was normal. He is actively receiving CHOP-E (etoposide) chemotherapy at the [facility] here, with his last treatment being on 07/22/2019. He is finishing up a 5-day course of prednisone 100 mg daily today. He is known to have extensive bone marrow involvement with his lymphoma as well. He has not had any fevers/sweats/chills. His ANC is normal. He will be admitted on observation for generalized weakness and fatigue likely secondary to chemotherapy-induced anemia. I discussed his case with his oncologist by phone at the time of admission who recommends 2 units of PRBCs to be transfused, but no other work-up needs to be done at this time. Allergies Allergy/AdvReac Type Severity Reaction Status Date / Time No Known Drug Allergies Allergy Unknown Verified 07/26/19 16:34 Home Medications Home Medications Medication Instructions Recorded Confirmed Type omeprazole 40 mg PO DAILY 12/11/18 07/26/19 History promethazine 25 mg PO TID PRN 06/03/19 07/26/19 History amlodipine 5 mg PO DAILY 06/25/19 07/26/19 History bisacodyl 5 mg PO DAILY PRN 06/25/19 07/26/19 History docusate sodium 100 mg PO BID 06/25/19 07/26/19 History magnesium citrate 300 ml PO DAILY PRN 06/25/19 07/26/19 History acyclovir 400 mg PO BID 07/17/19 07/26/19 History allopurinol 300 mg PO DAILY 07/17/19 07/26/19 History fluconazole 400 mg PO DAILY 07/17/19 07/26/19 History imipramine HCl 10 mg PO HS 07/17/19 07/26/19 History oxycodone 10 mg PO Q4 PRN 07/17/19 07/26/19 History sulfamethoxazole-trimethoprim 1 tab PO DAILY 07/17/19 07/26/19 History atenolol 50 mg PO DAILY 07/26/19 07/26/19 History oxycodone 40 mg PO BID 07/26/19 07/26/19 History prednisone 100 mg PO DAILY 07/26/19 07/26/19 History Past Med/Surg History Medical History 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 Beliefs That Will Affect Care: None Current Living Situation: Other Current Living Situation Comment: [facility] Feels Safe at Home: Yes Smoking Status: Former smoker Tobacco Type: cigarettes ; Second Hand Exposure: Yes ; Hx Alcohol Use: No Review of Systems Review of Systems: All systems reviewed & are unremarkable except as noted in HPI & below Physical Exam Constitutional: WD/WN, vitals as above Eyes: + anicteric sclerae and EOM intact bilaterally ENMT: external ear and nose normal, oropharynx normal Neck: trachea midline, no thyromegaly Respiratory: normal respiratory effort, lungs clear to auscultation Cardiovascular: RRR, no murmur, no edema Chest (Breasts): Chest: normal inspection of chest Gastrointestinal (Abdomen): normal bowel sounds, soft, nontender, no hepatosplenomegaly Musculoskeletal: Extremities: extremities normal to inspection; no cyanosis and no clubbing Skin: no rashes, warm and dry Neurologic: moves all extremities and awake; no focal motor deficits Psychiatric: A+Ox3, euthymic affect Lymphatic: no lymphedema Results & Data Results & Data ([facility]) Vital Signs (Past 12 Hours) Vital Signs Temp Pulse Pulse Resp BP BP Pulse Ox 07/26/19 18:10 36.4 C L 57 L 15 99/55 L 100 07/26/19 17:52 36.6 C 64 12 102/61 97 07/26/19 17:50 61 15 102/61 99 07/26/19 17:20 61 20 90/61 L 94 07/26/19 15:45 36.3 C L 96 H 20 89/59 L 98 Laboratory Results 07/26/19 07/26/19 07/26/19 Range/Units 16:30 16:19 16:19 WBC (4.8-10.8) K/uL RBC (4.7-6.1) M/uL Hgb (14.0-18.0) g/dL Hct (42-52) % MCV (80-100) fL MCH (25-34) pg MCHC (32-36) g/dL RDW Std Deviation (36.4-46.3) fL RDW Coeff of Elier (11.5-14.5) % Plt Count (130-400) K/uL MPV (7.4-10.4) fL Immature Gran % (Auto) % Neut % (Auto) % Lymph % (Auto) % [place] % (Auto) % Eos % (Auto) % Baso % (Auto) % Immature Gran # (Auto) (0.00-0.02) K/uL Neut # (Auto) (1.4-6.5) K/uL Lymph # (Auto) (1.2-3.4) K/uL [place] # (Auto) (0.11-0.59) K/uL Eos # (Auto) (0-0.5) K/uL Baso # (Auto) (0-0.2) K/uL RBC Morphology PT 10.5 (9.0-12.0) Seconds INR 1.0 (0.9-1.1) APTT 20.1 L (21.0-31.0) Seconds PTT Ratio 0.7 Sodium 140 (136-145) mmol/L Potassium 4.3 (3.5-5.1) mmol/L Chloride 111 H (98-107) mmol/L Carbon Dioxide 23 (21-32) mmol/L Anion Gap 6.0 (3-11) BUN 15 (7-18) mg/dl Creatinine 1.06 (0.6-1.4) mg/dl Est Cr Clr Drug Dosing Not Reportable Est GFR ( Amer) 99.8 Est GFR (Non-Af Amer) 86.1 BUN/Creatinine Ratio 14.3 (10-20) Glucose 112 H (70-99) mg/dl Calcium 9.1 (8.5-10.1) mg/dl Total Bilirubin 0.5 (0.2-1) mg/dl AST 65 H (15-37) U/L ALT 55 (12-78) U/L Alkaline Phosphatase 233 H (45-117) U/L Troponin I < 0.015 (0-0.045) ng/ml Total Protein 5.8 L (6.4-8.2) gm/dl Albumin 3.0 L (3.4-5.0) gm/dl Globulin 2.8 (2.5-4.0) gm/dl Albumin/Globulin Ratio 1.1 (0.9-2) Blood Type Blood Type Recheck A Positive Antibody Screen Crossmatch 07/26/19 07/26/19 Range/Units 16:19 16:19 WBC 2.33 L (4.8-10.8) K/uL RBC 2.59 L (4.7-6.1) M/uL Hgb 7.4 L (14.0-18.0) g/dL Hct 22.3 L (42-52) % MCV 86.1 (80-100) fL MCH 28.6 (25-34) pg MCHC 33.2 (32-36) g/dL RDW Std Deviation 52.2 H (36.4-46.3) fL RDW Coeff of Elier 16.9 H (11.5-14.5) % Plt Count 232 (130-400) K/uL MPV 8.8 (7.4-10.4) fL Immature Gran % (Auto) 0.0 % Neut % (Auto) 91.4 % Lymph % (Auto) 7.7 % [place] % (Auto) 0.9 % Eos % (Auto) 0.0 % Baso % (Auto) 0.0 % Immature Gran # (Auto) 0.00 (0.00-0.02) K/uL Neut # (Auto) 2.13 (1.4-6.5) K/uL Lymph # (Auto) 0.18 L (1.2-3.4) K/uL [place] # (Auto) 0.02 L (0.11-0.59) K/uL Eos # (Auto) 0.00 (0-0.5) K/uL Baso # (Auto) 0.00 (0-0.2) K/uL RBC Morphology Unremarkable PT (9.0-12.0) Seconds INR (0.9-1.1) APTT (21.0-31.0) Seconds PTT Ratio Sodium (136-145) mmol/L Potassium (3.5-5.1) mmol/L Chloride (98-107) mmol/L Carbon Dioxide (21-32) mmol/L Anion Gap (3-11) BUN (7-18) mg/dl Creatinine (0.6-1.4) mg/dl Est Cr Clr Drug Dosing Est GFR ( Amer) Est GFR (Non-Af Amer) BUN/Creatinine Ratio (10-20) Glucose (70-99) mg/dl Calcium (8.5-10.1) mg/dl Total Bilirubin (0.2-1) mg/dl AST (15-37) U/L ALT (12-78) U/L Alkaline Phosphatase (45-117) U/L Troponin I (0-0.045) ng/ml Total Protein (6.4-8.2) gm/dl Albumin (3.4-5.0) gm/dl Globulin (2.5-4.0) gm/dl Albumin/Globulin Ratio (0.9-2) Blood Type A Positive Blood Type Recheck Antibody Screen NEGATIVE Crossmatch See Detail ECG Additional Comments: Normal sinus rhythm, no ischemic changes, rate 68 Code Status & VTE Plan Code Status DNR, but does wish to be mechanically ventilated if has isolated respiratory failure PG Care Time/CCT Total # of Minutes Spent Total Time Spent with Patient: Total time spent is greater than 50% in coordination of care (as documented) at patient's floor/unit and/or counseling patient: Coding Level of Care Code 41144 OBS Care - Level 3 Diagnoses Symptomatic anemia D64.9 Fatigue R53.83 SVT (supraventricular tachycardia) I47.1 Lymphoma C85.98 Lymphoma site: multiple regions Lymphoma type: unspecified type Hypertension I10 Chest pain R07.9 GERD (gastroesophageal reflux disease) K21.9 DVT prophylaxis Z29.9 (1) Lymphoma Lymphoma site: multiple regions Lymphoma type: unspecified type Qualified Code(s): C85.98 - Non-Hodgkin lymphoma, unspecified, lymph nodes of multiple sites
[2019-07-26] MEDS ORDERED: PROMETHAZINE HCL 25 MG TAB PO PRN (19:39)
[2019-07-26] MEDS ORDERED: ONDANSETRON INJ 2 MG/ML 2 ML VIAL IV PRN (19:39)
[2019-07-26] MEDS ORDERED: OXYCODONE HCL IR 5 MG TAB (IMMEDIATE RELEASE) PO PRN (19:39)
[2019-07-26] MEDS ORDERED: ALUMINUM/MAGNESIUM SUSP 30 ML UDC PO PRN (19:39)
[2019-07-26] MEDS ORDERED: ACETAMINOPHEN 325 MG TAB PO PRN (19:39)
[2019-07-26] MEDS ORDERED: bisacodyL 5 MG TABEC PO PRN (19:46)
[2019-07-26] MEDS: OXYCODONE HCL 40 MG TABCR (OXYCONTIN) PO SCH (20:45)
[2019-07-26] MEDS: DOCUSATE SODIUM 100 MG CAP PO SCH (20:45)
[2019-07-26] MEDS: ACYCLOVIR 400 MG TAB PO SCH (20:45)
[2019-07-26] MEDS ORDERED: IMIPRAMINE HCL 10 MG TAB PO SCH (21:00)
[2019-07-26 23:27] LABS: Hematocrit (blood only) 25.4 % (42-52); Hemoglobin 8.5 g/dL (14.0-18.0)
[2019-07-27] MEDS: HEPARIN 100 UNIT/ML 5ML FLUSH FLUSH PRN ×2 (03:29→13:17)
[2019-07-27 08:11] LABS: Eosinophils # (auto) 0.01 K/uL (0-0.5); Eosinophils % (auto) 0.6 %; Hematocrit (blood only) 25.5 % (42-52); Hemoglobin 8.6 g/dL (14.0-18.0); Lymphocytes % (auto) 28.2 %; Mean Corpuscular Hemoglobin 28.6 pg (25-34); Mean Corpuscular Hgb Conc 33.7 g/dL (32-36); Mean Corpuscular Volume 84.7 fL (80-100); Neutrophils # (auto) 1.26 K/uL (1.4-6.5); Neutrophils % (auto) 71.2 %; Platelet Count 171 K/uL (130-400); RDW Coefficient of Variation 16.6 % (11.5-14.5); Red Blood Count 3.01 M/uL (4.7-6.1); White Blood Count 1.77 K/uL (4.8-10.8)
[2019-07-27] MEDS: OXYCODONE HCL 40 MG TABCR (OXYCONTIN) PO SCH (08:23)
[2019-07-27] MEDS: DOCUSATE SODIUM 100 MG CAP PO SCH (08:24)
[2019-07-27] MEDS: ACYCLOVIR 400 MG TAB PO SCH (08:24)
--- NOTE | 2019-07-27 08:40 | Hospitalist Progress Note ---
Date of Service July 27, 2019 Assessment & Plan (1) Symptomatic anemia: 43-year-old male with T-cell lymphoma currently undergoing chemotherapy with CHOP-E, here with symptomatic anemia likely secondary to chemotherapy. Hemoglobin 6.9 at the long-term and 7.4 here on recheck. He does have significant bone marrow involvement. With blood pressure in the 80 systolic here now improving with 1 L normal saline bolus and starting PRBC transfusion -Admit to medical floor with telemetry on observation -transfuse 2 units PRBCs -Follow CBC in the morning -We will likely discharge back to long-term tomorrow (2) Fatigue: Likely secondary to ongoing chemotherapy and anemia -Transfuse PRBCs (3) SVT (supraventricular tachycardia): Was here in the ER 1 week ago with SVT that required adenosine -Continue atenolol with hold parameters (4) Lymphoma: T-cell lymphoma, as above being treated with CHOP-E therapy. -[facility] -Prednisone 100 mg daily x5 days-he received his last dose at the present on the morning of 07/26/2019 -Continue suppressive therapy with acyclovir, Bactrim, and Diflucan (5) Hypertension: Blood pressures low secondary to anemia -Hold home amlodipine -Can give atenolol with hold parameters for blood pressure less than 100 systolic given that he has SVT-1 to prevent future SVT (6) Chest pain: Chronic, secondary to extensive involvement in the chest and sternum of his lymphoma -Continue home OxyContin 40 mg p.o. twice daily with oxycodone immediate release 10 mg p.o. every 4 hours as needed breakthrough pain -Bowel regimen (7) GERD (gastroesophageal reflux disease): Continue PPI (8) DVT prophylaxis: SCDs Disposition-admit on observation for symptomatic anemia and blood transfusion overnight Likely discharge back to long-term tomorrow Admission and Anticipated Discharge Date Admission Date: July 26, 2019 Results & Data Results & Data ([facility]) Vital Signs (Past 12 Hours) Vital Signs Temp Pulse Pulse Resp BP BP Pulse Ox 07/27/19 07:26 98.2 F 77 18 103/63 94 07/27/19 03:20 98.4 F 66 18 104/67 97 07/27/19 01:00 59 L 07/26/19 23:01 98.2 F 61 18 90/58 L 96 07/26/19 21:54 97.7 F 63 16 94/64 L 97 07/26/19 21:25 97.9 F 72 18 93/60 L 98 07/26/19 20:55 98.2 F 59 L 18 103/66 100 07/26/19 20:40 97.9 F 62 18 108/72 99 PG Care Time/CCT Total # of Minutes Spent Total Time Spent with Patient: Total time spent is greater than 50% in coordination of care (as documented) at patient's floor/unit and/or counseling patient: Coding Diagnoses Symptomatic anemia D64.9 Fatigue R53.83 SVT (supraventricular tachycardia) I47.1 Lymphoma C85.98 Lymphoma site: multiple regions Lymphoma type: unspecified type Hypertension I10 Chest pain R07.9 GERD (gastroesophageal reflux disease) K21.9 DVT prophylaxis Z29.9 (1) Lymphoma Lymphoma site: multiple regions Lymphoma type: unspecified type Qualified Code(s): C85.98 - Non-Hodgkin lymphoma, unspecified, lymph nodes of multiple sites
[2019-07-27 08:44] LABS: Alanine Aminotransferase 65 U/L (12-78); Albumin Level 2.6 gm/dl (3.4-5.0); Aspartate Aminotransferase 66 U/L (15-37); BUN Creatinine Ratio 15.5 (10-20); Bilirubin Direct 0.2 mg/dl (0-0.2); Blood Urea Nitrogen 12 mg/dl (7-18); Calcium 8.4 mg/dl (8.5-10.1); Carbon Dioxide 25 mmol/L (21-32); Chloride 111 mmol/L (98-107); Est GFR (African American) 130.4; Est GFR (Non-African American) 112.5; Glucose 81 mg/dl (70-99); Magnesium 1.8 mg/dl (1.8-2.4); Potassium 3.6 mmol/L (3.5-5.1); Sodium 141 mmol/L (136-145)
[2019-07-27 08:53] LABS: Alkaline Phosphatase 203 U/L (45-117); Bilirubin,Total 0.6 mg/dl (0.2-1)
[2019-07-27] MEDS ORDERED: ATENOLOL 50 MG TABLET PO SCH (09:00)
[2019-07-27] MEDS ORDERED: FLUCONAZOLE 100 MG TAB PO SCH (09:00)
[2019-07-27] MEDS ORDERED: PANTOprazole 40 MG TAB PO SCH (09:00)
[2019-07-27] MEDS ORDERED: allopurinoL 300 MG TAB PO SCH (09:00)
[2019-07-27] MEDS ORDERED: SULFA/TRIMETH 400/80MG TAB PO SCH (09:00)
--- NOTE | 2019-07-27 12:07 | Discharge Summary ---
Date of Service July 27, 2019 Admission HPI Per Admitting Provider This patient is a 43-year-old male prisoner with a history of T-cell lymphoma, HTN, SVT, GERD, with a recent prolonged stay for 2 to 3 weeks at [facility] in [place] for induction chemotherapy. He presents to the ER today with significant fatigue, was found to have blood pressures in the 80s systolic, and his daily hemoglobin from the [facility] was down to 6.9. He denies any lightheadedness or headache, denies chest pains over his usual chronic chest pain from his cancer, and denies shortness of breath. No abdominal pains, denies any nausea or vomiting, denies hematochezia or melena. His last bowel movement was this morning and was normal. He is actively receiving CHOP-E (etoposide) chemotherapy at [facility] here, with his last treatment being on 07/22/2019. He is finishing up a 5-day course of prednisone 100 mg daily today. He is known to have extensive bone marrow involvement with his lymphoma as well. He has not had any fevers/sweats/chills. His ANC is normal. He will be admitted on observation for generalized weakness and fatigue likely secondary to chemotherapy-induced anemia. I discussed his case with his oncologist by phone at the time of admission who recommends 2 units of PRBCs to be transfused, but no other work-up needs to be done at this time. Principal Diagnosis symptoamtic anemia associated with chemotherapy transfusion of 2 u prbc Discharge Exam The patient appeared well Vital signs as documented. Lungs are clear to auscultation and appear unlabored Cardiac exam, Rhythm is regular.. No murmurs, rubs or gallops. Abdominal exam reveals normal bowel sounds, soft non tender, no masses Extremities are nonedematous and both pedal pulses are normal. Neurologic exam is alert and oriented, no focal loss of strength or sensation Skin is without bruises or rashes Psychologically is without concerns for anxiety or depression Discharge Data Allergies Allergy/AdvReac Type Severity Reaction Status Date / Time No Known Drug Allergies Allergy Unknown Verified 07/26/19 16:34 Consultations 07/26/19 17:34 ED Decision to Admit Stat Hospital Course (1) Symptomatic anemia: 43-year-old male with T-cell lymphoma currently undergoing chemotherapy with CHOP-E, here with symptomatic anemia likely secondary to chemotherapy. Hemoglobin 6.9 at the [facility] and 7.4 here on recheck. He does have significant bone marrow involvement. With blood pressure in the 80 systolic here now improving with 1 L normal saline bolus and starting PRBC transfusion -Patient had appropriate rise in hemoglobin after transfusion of 2 units packed red blood cells. Patient will have a repeat laboratories in the middle of the week with differential sent to Dr. Chris Gale who is his oncologist (2) Fatigue: Resolved after transfusion of packed red blood cells (3) SVT (supraventricular tachycardia): Was here in the ER 1 week ago with SVT that required adenosine -Continue atenolol with hold parameters no additional SVT noted (4) Lymphoma: T-cell lymphoma, as above being treated with CHOP-E therapy. -Follow[facility] Poe at the [facility] -Prednisone 100 mg daily x5 days-he received his last dose at the present on the morning of 07/26/2019 -Continue suppressive therapy with acyclovir, Bactrim, and Diflucan (5) Hypertension: Blood pressures low secondary to anemia Blood pressure continues to be low we will recommend holding his amlodipine at time of discharge (6) Chest pain: Chronic, secondary to extensive involvement in the chest and sternum of his lymphoma -Continue home OxyContin 40 mg p.o. twice daily with oxycodone immediate release 10 mg p.o. every 4 hours as needed breakthrough pain -Bowel regimen (7) GERD (gastroesophageal reflux disease): Continue PPI Total Time Total Time Spent Total Time Spent (In Minutes): It required greater than 30 minutes to prepare this patient for discharge Discharge Plan Discharge Items [facility] Disposition[facility] Reason For Visit: SYMPTOMATIC ANEMIA Discharge Diagnosis: symptomatic anemia associated with chemotherapy Activity: Resume your previous activity Non-emergency contact: Oncologist Call non-emergency contact if: you have any medication questions and your symptoms worsen Follow-up/Referrals: Meek Poe DO [Physician] - Pablo OAKLEY [Primary Care Provider] - Diet: Regular Ambulatory Orders: Complete Blood Count with Diff (Routine) Timeframe: 3 Days Location: Determined by Patient Ordered By: Zay Pitts Attending Provider Instructions: please rest and recover, please follow up with Dr Poe have labs checked this week around sunday Pending Studies at Discharge: No Stand-Alone Forms: My [facility] Skilled Items Patient informed of condition?: Yes DNR: Yes Discharge Level of Care: Other Communicable Disease: No Discharge Prognosis: Stable Lines: None Urinary Catheter: No Medications and DC Order Prescriptions: Continued amlodipine 5 mg Tablet 5 mg PO DAILY RF: 0 docusate sodium 100 mg Capsule 100 mg PO BID RF: 0 magnesium citrate Solution 300 ml PO DAILY PRN (Reason: Constipation) RF: 0 bisacodyl 5 mg Tablet 5 mg PO DAILY PRN (Reason: Constipation) RF: 0 sulfamethoxazole-trimethoprim 400-80 mg Tablet 1 tab PO DAILY RF: 0 fluconazole 200 mg Tablet 400 mg PO DAILY RF: 0 acyclovir 400 mg Tablet 400 mg PO BID RF: 0 allopurinol 300 mg Tablet 300 mg PO DAILY RF: 0 imipramine HCl 10 mg Tablet 10 mg PO HS RF: 0 oxycodone 10 mg Tablet 10 mg PO Q4 PRN (Reason: Pain) RF: 0 prednisone 20 mg Tablet 100 mg PO DAILY RF: 0 atenolol 50 mg Tablet 50 mg PO DAILY RF: 0 oxycodone 40 mg Tablet,Oral Only,Ext.Rel.12 Hr 40 mg PO BID RF: 0 omeprazole 40 mg Capsule,Delayed Release(Dr/Ec) 40 mg PO DAILY RF: 0 promethazine 25 mg Tablet 25 mg PO TID PRN (Reason: Nausea) RF: 0 Admission Data Admit Date/Time: 07/26/19 18:19 Attending Provider: Zay Anthony Admit Provider: Sera Yee Primary Care Provider: Pablo OAKLEY Other Providers: Sera Yee Coding Level of Care Code D/C Day Management >30 mins Diagnoses Symptomatic anemia D64.9 Fatigue R53.83 SVT (supraventricular tachycardia) I47.1 Lymphoma C85.98 Lymphoma site: multiple regions Lymphoma type: unspecified type Hypertension I10 Chest pain R07.9 GERD (gastroesophageal reflux disease) K21.9
--- NOTE | 2019-07-28 05:33 | Electrocardiogram Report ---
Test Reason : Blood Pressure : / mmHG Vent. Rate : 068 BPM Atrial Rate : 068 BPM P-R Int : 142 ms QRS Dur : 104 ms QT Int : 424 ms P-R-T Axes : 018 003 015 degrees QTc Int : 450 ms Normal sinus rhythm Normal ECG When compared with ECG of 17-JUL-2019 11:01, Vent. rate has decreased BY 68 BPM Confirmed by Ck Esqueda ([id number]) on 07/28/2019 5:33:10 AM Referred By: [facility] Confirmed By:Ck Esqueda
== END 2019-07-27 13:47 ==
LOC: 2W 15:41 → ED 15:41 → SUATTDRO 18:19 → 2W 19:24

== ENCOUNTER 2019-08-02 12:51 | Observation (INO) ==
[2019-08-02] MEDS ORDERED: SODIUM CHLORIDE 0.9% 1000ML 1,000 ML IV SCH (13:00)
[2019-08-02] MEDS ORDERED: SODIUM CHLORIDE 0.9% 250 ML IV PRN ×3 (13:20→19:43)
--- NOTE | 2019-08-02 13:30 | Emergency Department Note ---
Impression & Plan Symptomatic anemia, Weakness, Neutropenia, Pancytopenia, T-cell lymphoma ED Provider Note NAME: MICHAEL [id number] GARCÍA AGE: 43 SEX: M ARRIVES VIA: Walk-In INFORMANT: [Patient] ED PROVIDER(S): Donato Chambers MD CHIEF COMPLAINT: Abnormal labs PLAN: Disposition: Admitted Condition: [Good] MEDICAL DECISION MAKING: Patient presented to the emergency department because of abnormal labs and weakness. He has a history of T-cell lymphoma. The patient will require transfusion of leuko-reduced/irradiated packed red blood cells. I did discuss the case with Dr. Wolfe of hematology. He agreed with the transfusion. Patient is significantly neutropenic as well. He is not febrile at this point time. He was placed on precautions. Consultation was made with internal medicine. The patient was evaluated for further management. Triage Nursing notes reviewed and agree them. [Prior medical records reviewed]. The patient has been anemic however he is trending down rapidly. Vital Signs: reviewed and remarkable for [no significant abnormalities] Differential diagnosis: Symptomatic anemia, complication of T-cell lymphoma, infection, dehydration, metabolic abnormality, hypo/hyperglycemia, electrolyte disturbance, anemia, hypoxia, cardiac sources, intracerebral event, toxicologic, neurologic, as well as other pathologies. ER treatment provided: Saline hydration Consented for packed transfusion. Diagnostics interpreted by me: ECG: Rate:70 Rhythm:Normal sinus [place]:Normal QRS:Normal ST segements:No elevation or depression. Nonspecific ST Other:No PACs or PVCs Cardiac Monitoring: Cardiac monitoring ordered by me: The patient was placed on continuous cardiac monitoring and observed. It revealed a normal sinus rhythm at 74 beats per minute without ectopy or evidence of dysrhythmia. Laboratory studies: [See below] pancytopenia noted in EMR. Chemistry panel was unremarkable. Consultation(s): Dr. Wolfe of hematology Dr. Kim of internal medicine HPI: 43/M arrives for evaluation of abnormal lab testing. The patient notes associated weakness. He has history of T-cell lymphoma. He has been monitored daily for decreasing blood counts. His hemoglobin today was 6.6 and he was referred to the ER for further management. Patient notes feeling generally weak and worse with exertion. He feels somewhat short of breath with exertion and better with rest. This is been an ongoing problem over the last several months. Patient is currently incarcerated. Pt denies LOC, headache, fevers, chills, diaphoresis, visual changes, neck pain, chest pain, breathing difficulties at rest, nausea, vomiting, abdominal pain, back pain, melena, hematochezia, urinary symptoms, numbness, focal weakness, lymphadenopathy, rash, or other complaints. ROS: See above HPI for pertinent positives & negatives. A total of [10] systems reviewed and were otherwise negative. PAST MEDICAL HISTORY:[See Below] T-cell lymphoma PAST SURGICAL HISTORY:[See Below] FAMILY HISTORY:[See Below] SOCIAL HISTORY:[See Below] incarcerated HOME MEDICATIONS:[See Below] ALLERGIES:[See Below] VITALS:[See Below] PHYSICAL EXAMINATION: GENERAL: Awake, alert, tired-appearing, in no distress HENT: Normocephalic, atraumatic. Oropharynx unremarkable. EYES: Pale conjunctiva. Sclera non-icteric. NECK: Inspection normal. Non-tender. Supple. No nuchal rigidity. FROM. No masses. RESPIRATORY: Clear to auscultation. No wheezes. No rales. Normal respiratory effort. CARDIAC: Normal rate. Normal rhythm. No murmurs. No rubs. Extremities warm and well perfused. Pulses equal. No JVD. GI: Soft, non-distended. No tenderness to palpation. No rebound or guarding. No masses. RECTAL: Deferred. MUSCULOSKELETAL: Atraumatic. Chest examination reveals no tenderness. The back is symmetrical on inspection without obvious abnormality. There is no CVA tenderness to palpation. No joint edema. LOWER EXTREMITIES: Calves are equal size bilaterally and non-tender. 1 edema. No discoloration. NEURO: Normal sensorium. No sensory or motor deficits noted. SKIN: No rash or jaundice noted. ED COURSE: [Critical Care:] [None] Donato Chambers MD Past Med/Surg History Social History Preferred Language: Urugu[place] Communication Ability: Effective Ssas Developer Required: No Beliefs That Will Affect Care: None Current Living Situation: Other Current Living Situation Comment: [facility] Feels Safe at Home: Yes Smoking Status: Former smoker Tobacco Type: cigarettes ; Second Hand Exposure: Yes ; Hx Alcohol Use: No Allergies Allergies Allergy/AdvReac Type Severity Reaction Status Date / Time No Known Drug Allergies Allergy Unknown Verified 06/13/20 13:42 Home Meds Home Medications Medication Instructions Recorded Confirmed omeprazole 40 mg PO DAILY 12/11/18 08/02/19 bisacodyl 5 mg PO DAILY PRN 06/25/19 08/02/19 docusate sodium 100 mg PO BID 06/25/19 08/02/19 acyclovir 400 mg PO BID 07/17/19 08/02/19 allopurinol 300 mg PO DAILY 07/17/19 08/02/19 fluconazole 400 mg PO DAILY 07/17/19 08/02/19 imipramine HCl 10 mg PO HS 07/17/19 08/02/19 oxycodone 10 mg PO Q4 PRN 07/17/19 08/02/19 sulfamethoxazole-trimethoprim 1 tab PO DAILY 07/17/19 08/02/19 atenolol 50 mg PO DAILY 07/26/19 08/02/19 oxycodone 40 mg PO BID 07/26/19 08/02/19 filgrastim [Neupogen] 480 mcg SUBCUT UD 08/02/19 08/02/19 ondansetron HCl (PF) 4 mg IV Q4H PRN 08/02/19 08/02/19 prochlorperazine maleate 10 mg PO QID PRN 08/02/19 08/02/19 [Compazine] Results & Data (ED) Vital Signs Vital Signs - 24 hr 08/02/19 12:54 08/02/19 13:19 08/02/19 13:20 Temperature 36.6 C Temperature Source Oral Pulse Rate 77 71 Pulse Rate from SpO2 Sensor 72 Respiratory Rate 20 25 H Respiratory Effort / Characteristics Non-Labored Respiratory Depth Normal Blood Pressure 106/76 106/64 Blood Pressure Mean 86 70 Blood Pressure Position Sitting Pulse Oximetry 96 99 Oxygen Delivery Method Room Air Room Air Sepsis Recent Fever Within 48 Hours No Sepsis New/Unexplained Change in Mental Status No Sepsis Action Taken by Nursing No Action Required 08/02/19 13:21 08/02/19 13:30 08/02/19 13:31 Temperature Temperature Source Pulse Rate 72 69 72 Pulse Rate from SpO2 Sensor 73 70 70 Respiratory Rate 18 10 L 12 Respiratory Effort / Characteristics Respiratory Depth Blood Pressure 106/65 Blood Pressure Mean 82 Blood Pressure Position Pulse Oximetry 99 95 94 Oxygen Delivery Method Sepsis Recent Fever Within 48 Hours Sepsis New/Unexplained Change in Mental Status Sepsis Action Taken by Nursing Laboratory Data Result diagrams: 08/02/19 13:16 Lab Results 08/02/19 08/02/19 Range/Units 13:16 13:16 Sodium 140 (136-145) mmol/L Potassium 3.4 L (3.5-5.1) mmol/L Chloride 110 H (98-107) mmol/L Carbon Dioxide 24 (21-32) mmol/L Anion Gap 6.0 (3-11) BUN 4 L (7-18) mg/dl Creatinine 0.57 L (0.6-1.4) mg/dl Est Cr Clr Drug Dosing Not Reportable Est GFR ( Amer) 146.8 Est GFR (Non-Af Amer) 126.7 BUN/Creatinine Ratio 6.2 L (10-20) Glucose 86 (70-99) mg/dl Calcium 8.2 L (8.5-10.1) mg/dl Magnesium 1.2 L (1.8-2.4) mg/dl Total Bilirubin 0.9 (0.2-1) mg/dl AST 17 (15-37) U/L ALT 47 (12-78) U/L Alkaline Phosphatase 211 H (45-117) U/L Total Protein 5.4 L (6.4-8.2) gm/dl Albumin 2.6 L (3.4-5.0) gm/dl Globulin 2.8 (2.5-4.0) gm/dl Albumin/Globulin Ratio 0.9 (0.9-2) TSH 1.900 (0.300-4.500) uIu/ml Blood Type A Positive Antibody Screen NEGATIVE Crossmatch See Detail Administered Medications Sodium Chloride (Nss 1000ml) 1,000 mls @ 125 mls/hr IV .Q8H KEITH Stop: 08/02/19 20:59 Last Infusion: 08/02/19 14:45 Dose: 0 mls/hr Documented by: [id number] Admin: 08/02/19 13:30 Dose: 125 mls/hr Documented by: [id number] Discharge Plan Visit Data Chief Complaint: Abnormal Labs/Diagnostic Testing Stated Complaint: ABNORMAL LABS ED Provider: Donato Chambers Discharge Problem: Symptomatic anemia, Weakness, Neutropenia, Pancytopenia, T-cell lymphoma Discharge Instructions Interventions: ED Discharge Assessment Last Done: 08/02/19 14:45
[2019-08-02 13:43] LABS: Alanine Aminotransferase 47 U/L (12-78); Albumin Level 2.6 gm/dl (3.4-5.0); Aspartate Aminotransferase 17 U/L (15-37); BUN Creatinine Ratio 6.2 (10-20); Blood Urea Nitrogen 4 mg/dl (7-18); Calcium 8.2 mg/dl (8.5-10.1); Carbon Dioxide 24 mmol/L (21-32); Chloride 110 mmol/L (98-107); Est GFR (African American) 146.8; Est GFR (Non-African American) 126.7; Glucose 86 mg/dl (70-99); Magnesium 1.2 mg/dl (1.8-2.4); Potassium 3.4 mmol/L (3.5-5.1); Sodium 140 mmol/L (136-145)
[2019-08-02 13:53] LABS: Albumin Globulin Ratio 0.9 (0.9-2); Alkaline Phosphatase 211 U/L (45-117); Bilirubin,Total 0.9 mg/dl (0.2-1); Globulin 2.8 gm/dl (2.5-4.0); Total Protein 5.4 gm/dl (6.4-8.2)
--- NOTE | 2019-08-02 14:01 | History & Physical Report ---
Date of Service August 02, 2019 Assessment & Plan (1) Symptomatic anemia: As per plan from Dr Poe Transfuse 2 units irradiated PRBCs Repeat CBC after this to assess need for continued transfusions (2) Neutropenia: Isolation precautions - neutropenia (3) Pancytopenia due to antineoplastic chemotherapy: No current bleeding to suggest need for platelet transfusion Neutropenic precautions as above (4) T-cell lymphoma: Follow up with Dr Poe as previously arranged Continue outpatient pain regimen with Oxycontin KEITH and oxycodone for breakthrough pain Continue outpatient anti-nausea regimen with ondansetron and promethazine Continue outpatient chronic prophylactic with fluconazole/acyclovir/Bactrim Continue allopurinol to reduce risk of hyperuricemia (5) History of paroxysmal supraventricular tachycardia: Continue atenolol 50mg PO daily with hold parameters (6) GERD (gastroesophageal reflux disease): Switch omeprazole for pantoprazole as per hospital formulary (7) DVT prophylaxis: Chemical prophylaxis contraindicated given current anemia and thrombocytopenia SCDs Admission and Anticipated Discharge Date Admission Date: 08/02/2019 Anticipated date of discharge: 08/03/19 History of Present Illness Primary Care Provider: CELE Shah Bharat Melvin is a 43 year old male with T-cell lymphoma, HTN, SVT, GERD and recent anemia requiring blood transfusion who presents to the ER due to anemia and generalized fatigue. He notes ongoing chest pain that is at his baseline due to the lymphoma which did not change during or after his last admission with blood transfusions. He is short of breath / fatigued/off legs when walking only 2 steps but again this has not changed since his recent discharge. Hgb on most recent admission last week was 6.9 (required 2 units PRBCs), discharge Hgb 8.6. Currently trended down to 6.6. In addition he is currently neutropenic with thrombocytopenia. Continues on CHOP-E chemotherapy. Not currently taking prednisone. Abdominal pain at baseline, no nasuea or vomiting, no change in bowels. He denies any melena, red blood in stool, external bleeding bruising, hemoptysis, hematemesis. No fevers. ER physician discussed with Dr Poe and recommended 2 units leuk reduced, irradiated packed RBCs transfusion. Allergies Allergy/AdvReac Type Severity Reaction Status Date / Time No Known Drug Allergies Allergy Unknown Verified 08/02/19 13:42 Home Medications Home Medications Medication Instructions Recorded Confirmed Type omeprazole 40 mg PO DAILY 12/11/18 08/02/19 History bisacodyl 5 mg PO DAILY PRN 06/25/19 08/02/19 History docusate sodium 100 mg PO BID 06/25/19 08/02/19 History acyclovir 400 mg PO BID 07/17/19 08/02/19 History allopurinol 300 mg PO DAILY 07/17/19 08/02/19 History fluconazole 400 mg PO DAILY 07/17/19 08/02/19 History imipramine HCl 10 mg PO HS 07/17/19 08/02/19 History oxycodone 10 mg PO Q4 PRN 07/17/19 08/02/19 History sulfamethoxazole-trimethoprim 1 tab PO DAILY 07/17/19 08/02/19 History atenolol 50 mg PO DAILY 07/26/19 08/02/19 History oxycodone 40 mg PO BID 07/26/19 08/02/19 History filgrastim [Neupogen] 480 mcg SUBCUT UD 08/02/19 08/02/19 History ondansetron HCl (PF) 4 mg IV Q4H PRN 08/02/19 08/02/19 History prochlorperazine maleate 10 mg PO QID PRN 08/02/19 08/02/19 History [Compazine] Past Med/Surg History Medical History (Updated 08/02/19 @ 17:07 by Carmelo Kim MD) 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 Rivas 06/16/19 Social History Preferred Language: Slovenian Communication Ability: Effective Merchandising Coordinator Required: No Beliefs That Will Affect Care: None Current Living Situation: Other Current Living Situation Comment: [facility] Feels Safe at Home: Yes Smoking Status: Former smoker Tobacco Type: cigarettes ; Second Hand Exposure: Yes ; Hx Alcohol Use: No Review of Systems Review of Systems: All systems reviewed & are unremarkable except as noted in HPI & below Physical Exam Constitutional: well developed; + not well nourished and no acute distress pale appearing Eyes: + conjunctival abnormality (pale) ENMT: external ear and nose normal, oropharynx normal (pale appearing) Neck: trachea midline Respiratory: normal respiratory effort and able to speak in complete sentences; no respiratory distress, no labored breathing and does not use accessory muscles Auscultation: + crackles (fine throughout); no diminished lung sounds Cardiovascular: Rate/Rhythm: regular rate and regular rhythm Heart Sounds: no murmur Vessels: no JVD Extremities: normal capillary refill and + pedal edema; no calf tenderness Gastrointestinal (Abdomen): Inspection/Auscultation: + abdomen distended and normal bowel sounds Percussion/Palpation: + abdomen tender (generalized, mild at baseline) and abdomen soft; no guarding and abdomen not rigid Musculoskeletal: no cyanosis or clubbing, extremities motor strength 5/5 Skin: + pallor; no rashes and no ecchymosis Neurologic: moves all extremities and awake; not confused Psychiatric: A+Ox3, euthymic affect Results & Data Results & Data ([facility]) Vital Signs (Past 12 Hours) Vital Signs Temp Pulse Resp BP Pulse Ox 08/02/19 12:54 36.6 C 77 20 106/76 96 Code Status & VTE Plan Code Status All treatment outside of a cardiac arrest VTE Prophylaxis Plan VTE Prophylaxis will be ordered: Yes PG Care Time/CCT Total # of Minutes Spent Total Time Spent with Patient: Total time spent is greater than 50% in coordination of care (as documented) at patient's floor/unit and/or counseling patient: Coding Level of Care Code 27843 Initial Inpt Care Lvl 2 Diagnoses Symptomatic anemia D64.9 Neutropenia D70.1; T45.1X5A Neutropenia type: secondary to cancer chemotherapy Pancytopenia due to antineoplastic chemotherapy D61.810; T45.1X5A T-cell lymphoma C85.90 History of paroxysmal supraventricular tachycardia Z86.79 GERD (gastroesophageal reflux disease) K21.9 DVT prophylaxis Z29.9 (1) Neutropenia Neutropenia type: secondary to cancer chemotherapy Qualified Code(s): D70.1 - Agranulocytosis secondary to cancer chemotherapy; T45.1X5A - Adverse effect of antineoplastic and immunosuppressive drugs, initial encounter
[2019-08-02] MEDS ORDERED: bisacodyL 5 MG TABEC PO PRN (16:32)
[2019-08-02] MEDS ORDERED: PROCHLORPERAZINE MALEATE 10 MG TAB PO PRN (16:32)
[2019-08-02] MEDS ORDERED: ONDANSETRON INJ 2 MG/ML 2 ML VIAL IV PRN (16:32)
[2019-08-02] MEDS ORDERED: POTASSIUM CHLORIDE 20 MEQ TABCR PO STA (16:40)
[2019-08-02] MEDS: OXYCODONE HCL IR 5 MG TAB (IMMEDIATE RELEASE) PO PRN (17:31)
[2019-08-02] MEDS: MAGNESIUM OXIDE 400 MG TAB PO SCH ×2 (18:21→20:37)
[2019-08-02] MEDS: ACYCLOVIR 400 MG TAB PO SCH (20:36)
[2019-08-02] MEDS: IMIPRAMINE HCL 10 MG TAB PO SCH (20:37)
[2019-08-02] MEDS: OXYCODONE HCL 40 MG TABCR (OXYCONTIN) PO SCH (20:37)
[2019-08-02] MEDS: DOCUSATE SODIUM 100 MG CAP PO SCH (20:37)
[2019-08-02] MEDS: SODIUM CHLORIDE 0.9% 1000ML 1,000 ML IV SCH (22:19)
[2019-08-03 01:07] LABS: Hematocrit (blood only) 27.2 % (42-52); Mean Corpuscular Hgb Conc 33.1 g/dL (32-36); Mean Corpuscular Volume 84.7 fL (80-100); Platelet Count 25 K/uL (130-400); RDW Coefficient of Variation 14.9 % (11.5-14.5); RDW Standard Deviation 46.2 fL (36.4-46.3); Red Blood Count 3.21 M/uL (4.7-6.1); White Blood Count 0.45 K/uL (4.8-10.8)
[2019-08-03] MEDS ORDERED: HEPARIN 100 UNIT/ML 5ML FLUSH FLUSH PRN (01:50)
[2019-08-03] MEDS: OXYCODONE HCL IR 5 MG TAB (IMMEDIATE RELEASE) PO PRN ×2 (01:54→18:24)
[2019-08-03] MEDS: SODIUM CHLORIDE 0.9% 1000ML 1,000 ML IV SCH ×3 (06:20→20:59)
[2019-08-03 07:02] LABS: Basophils # (auto) 0.03 K/uL (0-0.2); Basophils % (auto) 5.6 %; Eosinophils # (auto) 0.02 K/uL (0-0.5); Eosinophils % (auto) 3.7 %; Hematocrit (blood only) 23.9 % (42-52); Hemoglobin 8.1 g/dL (14.0-18.0); Immature Granulocytes # (auto) 0.02 K/uL (0.00-0.02); Immature Granulocytes % (auto) 3.7 %; Lymphocytes # (auto) 0.41 K/uL (1.2-3.4); Lymphocytes % (auto) 75.9 %; Mean Corpuscular Hemoglobin 28.4 pg (25-34); Mean Corpuscular Hgb Conc 33.9 g/dL (32-36); Mean Corpuscular Volume 83.9 fL (80-100); Mean Platelet Volume 10.2 fL (7.4-10.4); Monocytes # (auto) 0.01 K/uL (0.11-0.59); Monocytes % (auto) 1.9 %; Neutrophils # (auto) 0.05 K/uL (1.4-6.5); Neutrophils % (auto) 9.2 %; Platelet Count 22 K/uL (130-400); RDW Coefficient of Variation 14.8 % (11.5-14.5); RDW Standard Deviation 45.4 fL (36.4-46.3); Red Blood Count 2.85 M/uL (4.7-6.1); White Blood Count 0.54 K/uL (4.8-10.8)
[2019-08-03] MEDS: PANTOprazole 40 MG TAB PO SCH (08:08)
[2019-08-03] MEDS: allopurinoL 300 MG TAB PO SCH (08:08)
[2019-08-03] MEDS: MAGNESIUM OXIDE 400 MG TAB PO SCH ×2 (08:08→21:03)
[2019-08-03] MEDS: ATENOLOL 50 MG TABLET PO SCH (08:08)
[2019-08-03] MEDS: SULFA/TRIMETH 400/80MG TAB PO SCH (08:08)
[2019-08-03] MEDS: FLUCONAZOLE 100 MG TAB PO SCH (08:08)
[2019-08-03] MEDS: DOCUSATE SODIUM 100 MG CAP PO SCH ×2 (08:08→21:03)
[2019-08-03] MEDS: ACYCLOVIR 400 MG TAB PO SCH ×2 (08:08→21:03)
[2019-08-03] MEDS: OXYCODONE HCL 40 MG TABCR (OXYCONTIN) PO SCH ×2 (08:11→21:05)
--- NOTE | 2019-08-03 10:00 | Electrocardiogram Report ---
Test Reason : Blood Pressure : / mmHG Vent. Rate : 070 BPM Atrial Rate : 070 BPM P-R Int : 146 ms QRS Dur : 098 ms QT Int : 408 ms P-R-T Axes : 016 001 017 degrees QTc Int : 440 ms Normal sinus rhythm Nonspecific T wave abnormality Abnormal ECG When compared with ECG of 26-JUL-2019 16:10, Nonspecific T wave abnormality is now present Confirmed by Hussein Perry ([id number]) on 08/03/2019 9:59:58 AM Referred By: REFERRED SELF Confirmed By:Hussein Perry
--- NOTE | 2019-08-03 10:16 | Hospitalist Progress Note ---
Date of Service August 03, 2019 Assessment & Plan Admission and Anticipated Discharge Date Admission Date: August 02, 2019 43 yo M w/ pMHx. of T-cell lymphoma, HTN, SVT, GERD and recent anemia requiring blood transfusion who presents to the ER due to anemia and generalized fatigue. He notes ongoing chest pain that is at his baseline due to the lymphoma which did not change during or after his last admission with blood transfusions. He is short of breath when walking only 2 steps but again this has not changed since his recent discharge. Hgb on most recent admission last week was 6.9 (required 2 units PRBCs), discharge Hgb 8.6. In addition he is currently neutropenic with thrombocytopenia. Continues on CHOP-E chemotherapy. Not currently taking prednisone. Symptomatic anemia - As per plan from Dr Poe - Transfused 2 units irradiated PRBCs, f/u H&H 8.1 & 23.9 - follow AM CBC Neutropenia - Isolation precautions - neutropenia Pancytopenia due to antineoplastic chemotherapy: - No current bleeding to suggest need for platelet transfusion - Neutropenic precautions as above T-cell lymphoma - Follow up with Dr Poe as previously arranged - Continue outpatient pain regimen with Oxycontin KEITH and oxycodone for breakthrough pain - Continue outpatient anti-nausea regimen with ondansetron and promethazine - Continue outpatient chronic prophylactic with fluconazole/acyclovir/Bactrim - Continue allopurinol to reduce risk of hyperuricemia History of paroxysmal supraventricular tachycardia - Continue atenolol 50mg PO daily with hold parameters GERD (gastroesophageal reflux disease): - Switch omeprazole for pantoprazole as per hospital formulary DVT prophylaxis: - Chemical prophylaxis contraindicated given current anemia and thrombocytopenia SCDs Code: conditional (no chest compressions, no defibrillation), diet: regular Anticipated date of discharge: 08/03/19 Supervising Physician Co-Signing Physician Notes I personally examined the patient and verified all pearson points of history and exam, discussed case, and agree with decision making with Dr Canseco. feeling ok. no new issues. discussed labs. vitals noted nad heent nc at mmm breathing unlabored no accessory muscles good effort skin no rashes no pallor or icterus chemotherapy induced pancytopenia - anemia now better w transfusion. follow counts into tomorrow - if improving then probably can be discharged w close outpt f/u. if not improving or worsening, then would need to consider inpatient heme/onc eval otherwise as above Subjective Mr. Melvin was sitting in bed watching TV when I examined him. He stated that he was doing okay, but was experiencing 6/10 chest pain that is chronic for him he states that it is improved from 8/10 after taking pain medication. He mentioned that he peeled off the tape from the IV that had been discontinued, it had been several hours since the IV was removed but the site did bleed. He held pressure to the site and the bleeding stopped. He mentioned he does not have any other sources of bleeding at this time. Review of Systems Review of Systems: constitutional: denies fevers or chills cardiac: admits chest pain, denies palpitations GI: denies nausea or vomiting pulm: denies cough or shortness of breath : denies increased urinary frequency, urgency or pressure Physical Exam Constitutional: WD/WN, vitals as above Neck: normal visual inspection Respiratory: normal respiratory effort, lungs clear to auscultation Cardiovascular: RRR, no murmur, no edema - exquisitely tender to palpation on the central chest Gastrointestinal (Abdomen): - nontender to palpation, soft, no guarding, not rigid Skin: no rashes, warm and dry Psychiatric: A+Ox3, euthymic affect Results & Data Results & Data ([facility]) Vital Signs (Past 12 Hours) Vital Signs Temp Pulse Pulse Resp BP Pulse Ox 08/03/19 07:27 36.5 C 86 18 108/65 96 08/03/19 03:00 36.9 C 81 12 105/63 96 08/03/19 00:00 72 08/02/19 23:00 36.3 C L 71 14 113/72 94 Resident Activity Tracking Resident Involvement: Resident Care Provided Care Provided: Adult Hospital Medicine
--- NOTE | 2019-08-03 17:35 | Billing Data ---
Date of Service August 03, 2019 Coding Level of Care Code 86845 Subseq Hosp Care Lvl 2
[2019-08-03] MEDS: IMIPRAMINE HCL 10 MG TAB PO SCH (21:03)
[2019-08-04] MEDS: SODIUM CHLORIDE 0.9% 1000ML 1,000 ML IV SCH (05:04)
[2019-08-04 06:52] LABS: Hematocrit (blood only) 24.2 % (42-52); Hemoglobin 8.4 g/dL (14.0-18.0); Mean Corpuscular Hemoglobin 28.8 pg (25-34); Mean Corpuscular Hgb Conc 34.7 g/dL (32-36); Mean Corpuscular Volume 82.9 fL (80-100); Mean Platelet Volume 9.9 fL (7.4-10.4); Platelet Count 27 K/uL (130-400); RDW Coefficient of Variation 15.2 % (11.5-14.5); RDW Standard Deviation 45.8 fL (36.4-46.3); Red Blood Count 2.92 M/uL (4.7-6.1); White Blood Count 0.48 K/uL (4.8-10.8)
[2019-08-04 06:57] LABS: BUN Creatinine Ratio 2.8 (10-20); Blood Urea Nitrogen 1 mg/dl (7-18); Calcium 8.5 mg/dl (8.5-10.1); Carbon Dioxide 25 mmol/L (21-32); Chloride 110 mmol/L (98-107); Creatinine Clr Calc Pharmacy 203.9 ml/min; Est GFR (African American) > 150.0; Est GFR (Non-African American) 131.5; Glucose 96 mg/dl (70-99); Potassium 3.3 mmol/L (3.5-5.1); Sodium 140 mmol/L (136-145)
[2019-08-04] MEDS: DOCUSATE SODIUM 100 MG CAP PO SCH (08:06)
[2019-08-04] MEDS: MAGNESIUM OXIDE 400 MG TAB PO SCH (08:13)
[2019-08-04] MEDS: PANTOprazole 40 MG TAB PO SCH (08:14)
[2019-08-04] MEDS: SULFA/TRIMETH 400/80MG TAB PO SCH (08:14)
[2019-08-04] MEDS: ACYCLOVIR 400 MG TAB PO SCH (08:15)
[2019-08-04] MEDS: allopurinoL 300 MG TAB PO SCH (08:15)
[2019-08-04] MEDS: FLUCONAZOLE 100 MG TAB PO SCH (09:15)
[2019-08-04] MEDS ORDERED: POTASSIUM CHLORIDE 20 MEQ TABCR PO ONE (09:15)
[2019-08-04] MEDS: OXYCODONE HCL 40 MG TABCR (OXYCONTIN) PO SCH (09:16)
[2019-08-04] MEDS: ATENOLOL 50 MG TABLET PO SCH (09:16)
[2019-08-04] MEDS ORDERED: PROCHLORPERAZINE MALEATE 10 MG TAB PO STA (09:42)
--- NOTE | 2019-08-04 11:07 | Discharge Summary ---
Date of Service August 04, 2019 Admission HPI Per Admitting Provider Bharat Melvin is a 43 year old male with T-cell lymphoma, HTN, SVT, GERD and recent anemia requiring blood transfusion who presents to the ER due to anemia and generalized fatigue. He notes ongoing chest pain that is at his baseline due to the lymphoma which did not change during or after his last admission with blood transfusions. He is short of breath / fatigued/off legs when walking only 2 steps but again this has not changed since his recent discharge. Hgb on most recent admission last week was 6.9 (required 2 units PRBCs), discharge Hgb 8.6. Currently trended down to 6.6. In addition he is currently neutropenic with thrombocytopenia. Continues on CHOP-E chemotherapy. Not currently taking prednisone. Abdominal pain at baseline, no nasuea or vomiting, no change in bowels. He denies any melena, red blood in stool, external bleeding bruising, hemoptysis, hematemesis. No fevers. ER physician discussed with Dr Poe and recommended 2 units leuk reduced, irradiated packed RBCs transfusion. Principal Diagnosis anemia Discharge Exam Constitutional WD/WN, vitals as above Eyes PERRL, conjunctivae normal, anicteric sclerae ENMT external ear and nose normal, oropharynx normal Respiratory normal respiratory effort, lungs clear to auscultation Cardiovascular RRR, no murmur, no edema Gastrointestinal (Abdomen) normal bowel sounds, soft, nontender, no hepatosplenomegaly Skin no rashes, warm and dry Psychiatric A+Ox3, euthymic affect Discharge Data Allergies Allergy/AdvReac Type Severity Reaction Status Date / Time No Known Drug Allergies Allergy Unknown Verified 08/02/19 13:42 Consultations 08/02/19 15:11 ED Decision to Admit Stat Hospital Course (1) Pancytopenia due to antineoplastic chemotherapy: 43 yo M w/ pMHx. of T-cell lymphoma, HTN, SVT, GERD and recent anemia requiring blood transfusion who presents to the ER due to anemia and generalized fatigue and SOB. He notes ongoing chest pain that is at his baseline due to the lymphoma which did not change during or after his last admission with blood transfusions. Hgb on most recent admission last week was 6.9 (required 2 units PRBCs), discharge Hgb 8.6. In addition he is currently neutropenic and thrombocytopenic with ongoing CHOP-E chemotherapy. Not currently taking prednisone. The following is the medical management during stay here: Symptomatic anemia - Per discussion with Dr. Poe recommended 2 units leuk reduced, irradiated packed RBCs transfusion - f/u H&H stable. On day of d/c, hgb 8.4 hct 24.2 -please repeat CBC with diff in 3 days time, send results to Dr. Poe who is his oncologist Neutropenia - Isolation precautions - neutropenia Pancytopenia due to antineoplastic chemotherapy: - No current bleeding to suggest need for platelet transfusion -plts 27 on day of d/c -WBC 0.45 on day of d/c -neopogen held this admission, will resume on d/c T-cell lymphoma - Follow up with Dr Poe as previously arranged, August 12, 2019 - Continued outpatient pain regimen with Oxycontin KEITH and oxycodone for breakthrough pain - Continued outpatient anti-nausea regimen with ondansetron and promethazine - Continued outpatient chronic prophylactic with fluconazole/acyclovir/Bactrim - Continued allopurinol to reduce risk of hyperuricemia History of paroxysmal supraventricular tachycardia - Continued atenolol 50mg PO daily with hold parameters GERD (gastroesophageal reflux disease): - Switched omeprazole for pantoprazole as per hospital formulary DVT prophylaxis was contraindicated given current anemia and thrombocytopenia, SCDs. At time of d/c, pt had no other acute concerns or complaints. Total Time Total Time Spent Total Time Spent (In Minutes): 30 Discharge Plan Discharge Items [facility] Reason For Visit: SYMPTOMATIC ANEMIA Discharge Diagnosis: anemia Activity: Per Instructions section Non-emergency contact: Primary Care Provider Call non-emergency contact if: you have any medication questions and your symptoms worsen Follow-up/Referrals: Meek Poe DO [Physician] - (please follow up with Dr. Poe at previously scheduled appointment on 08/12/2019) Pablo OAKLEY [Primary Care Provider] - Diet: Regular Ambulatory Orders: Complete Blood Count with Diff (Timed) Timeframe: 3 Days Location: Determined by Patient Ordered By: Zen Pitts Attending Provider Instructions: 43 yo M w/ pMHx. of T-cell lymphoma, HTN, SVT, GERD and recent anemia requiring blood transfusion who presents to the ER due to anemia and generalized fatigue and SOB. He notes ongoing chest pain that is at his baseline due to the lymphoma which did not change during or after his last admission with blood transfusions. Hgb on most recent admission last week was 6.9 (required 2 units PRBCs), discharge Hgb 8.6. In addition he is currently neutropenic and thrombocytopenic with ongoing CHOP-E chemotherapy. Not currently taking prednisone. The following is the medical management during stay here: Symptomatic anemia - Per discussion with Dr. Poe recommended 2 units leuk reduced, irradiated packed RBCs transfusion - f/u H&H stable. On day of d/c, hgb 8.4 hct 24.2 -please repeat CBC with diff in 3 days time, send results to Dr. Poe who is his oncologist Neutropenia - Isolation precautions - neutropenia Pancytopenia due to antineoplastic chemotherapy: - No current bleeding to suggest need for platelet transfusion -plts 27 on day of d/c -WBC 0.45 on day of d/c -neopogen held this admission, will resume on d/c T-cell lymphoma - Follow up with Dr Poe as previously arranged, August 12, 2019 - Continued outpatient pain regimen with Oxycontin KEITH and oxycodone for breakthrough pain - Continued outpatient anti-nausea regimen with ondansetron and promethazine - Continued outpatient chronic prophylactic with fluconazole/acyclovir/Bactrim - Continued allopurinol to reduce risk of hyperuricemia History of paroxysmal supraventricular tachycardia - Continued atenolol 50mg PO daily with hold parameters GERD (gastroesophageal reflux disease): - Switched omeprazole for pantoprazole as per hospital formulary DVT prophylaxis was contraindicated given current anemia and thrombocytopenia, SCDs. At time of d/c, pt had no other acute concerns or complaints. Pending Studies at Discharge: No Stand-Alone Forms: My [facility] Skilled Items Patient informed of condition?: Yes Discharge Level of Care: Other Communicable Disease: No Discharge Prognosis: Stable Lines: None Urinary Catheter: No Medications and DC Order Prescriptions: Continued docusate sodium 100 mg Capsule 100 mg PO BID RF: 0 bisacodyl 5 mg Tablet 5 mg PO DAILY PRN (Reason: Constipation) RF: 0 sulfamethoxazole-trimethoprim 400-80 mg Tablet 1 tab PO DAILY RF: 0 fluconazole 200 mg Tablet 400 mg PO DAILY RF: 0 acyclovir 400 mg Tablet 400 mg PO BID RF: 0 allopurinol 300 mg Tablet 300 mg PO DAILY RF: 0 imipramine HCl 10 mg Tablet 10 mg PO HS RF: 0 oxycodone 10 mg Tablet 10 mg PO Q4 PRN (Reason: Pain) RF: 0 atenolol 50 mg Tablet 50 mg PO DAILY RF: 0 oxycodone 40 mg Tablet,Oral Only,Ext.Rel.12 Hr 40 mg PO BID RF: 0 prochlorperazine maleate [Compazine] 10 mg Tablet 10 mg PO QID PRN (Reason: Nausea And Vomiting) RF: 0 Neupogen 480 mcg/0.8 mL Syringe 480 mcg SUBCUT UD RF: 0 ondansetron HCl (PF) 4 mg/2 mL Solution 4 mg IV Q4H PRN (Reason: Nausea And Vomiting) RF: 0 omeprazole 40 mg Capsule,Delayed Release(Dr/Ec) 40 mg PO DAILY RF: 0 Discharge Orders: Discharge Order (Routine); Ordered 08/04/19 Ordered By: Zen Arroyo Admission Data Admit Date/Time: 08/02/19 13:53 Attending Provider: Celia Godinez Admit Provider: Carmelo Kim Primary Care Provider: Pablo OAKLEY Other Providers: Carmelo Kim Other Interventions: Discharge Summary Assessment (RN) Last Done: 08/04/19 11:28 DC Date/Time DO NOT enter until pt leaves facility: 08/04/19 13:12 Supervising Physician Co-Signing Physician Notes Patient was seen and examined with PGY-2 Dr. Arroyo. Agree with history, exam findings, assessment and plan of care as outlined by Dr. Arroyo. In brief, Mr. Melvin is a 43 year old male with T-cell lymphoma and pancytopenia 2/2 chemotherapy (on neupogen), pSVT admitted with symptomatic anemia. Today he feels relatively well. A bit nauseated, but has been able to eat bites of food without vomiting. VS, labs and nursing notes reviewed. Pale appearing. Not tachycardic. Abdomen soft, nontender. 1. Chemotherapy induced pancyotpenia. Anemia improved s/p transfusion. Discharge hgb 8.4 Will need repeat CBC in 3 days. Neupogen per heme-onc. 2. T-cell lymphoma. Followed by heme-onc (Dr. Poe). Pain, anti-nausea, antibiotic prophylaxis and hyperuricemia prophylaxis continued. 3. paroxysmal SVT. stable, home atenolol continued. Dispo: discharge today. Dr. Arroyo spoke with receiving physician at the [facility]. I personally spent 25 minutes discharge planning for this patient. Resident Activity Tracking Resident Involvement: Resident Care Provided Care Provided: Adult Hospital Medicine
== END 2019-08-04 13:12 | DRG 809 ==
LOC: ED 12:51 → SUATTDRO 13:53 → INTOOBSV 13:53 → 2W 13:53

== ENCOUNTER 2019-08-22 15:52 | Inpatient (IN) ==
[2019-08-22] MEDS ORDERED: PROCHLORPERAZINE 2 ML IV ONE (18:00)
[2019-08-22] MEDS ORDERED: SODIUM CHLORIDE 0.9% 500 ML IV ONE (18:00)
[2019-08-22] MEDS ORDERED: SODIUM CHLORIDE 0.9% 250 ML IV PRN ×3 (18:03→22:14)
--- NOTE | 2019-08-22 18:54 | XRay Report ---
SINGLE VIEW CHEST CLINICAL HISTORY: Atypical chest pain. FINDINGS: An AP, portable, upright chest radiograph is compared to chest x-ray and chest CT dated 06/20. The examination is degraded by portable technique and patient rotation. A left subclavian madeline tral venous infusion port is unchanged in position. The heart is enlarged. The pulmonary vasculature is noncongested. An accessory azygous fissure is incidentally noted. There is chronic elevation of th e left hemidiaphragm. Scarring/atelectasis is noted at the lung bases. No airspace consolidation or l arge pleural effusion is identified. No pneumothorax is seen. The skeletal structures are osteopenic. The bony thorax is grossly intact. 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 IMPRESSION: Cardiomegaly with no acute cardiopulmonary abnormality. ACT 112: Negative or not required by law. Electronically signed by: Britton Card M.D. 08/22/2019 6:53 PM
[2019-08-22 18:57] LABS: INR 1.1 (0.9-1.1); Partial Thromboplastin Ratio 1.1; Partial Thromboplastin Time 31.1 Seconds (21.0-31.0); Prothrombin Time 11.9 Seconds (9.0-12.0)
[2019-08-22 18:58] LABS: Albumin Level 2.5 gm/dl (3.4-5.0); Aspartate Aminotransferase 4 U/L (15-37); Bilirubin Direct 0.4 mg/dl (0-0.2); Blood Urea Nitrogen 22 mg/dl (7-18); Calcium 8.8 mg/dl (8.5-10.1); Carbon Dioxide 22 mmol/L (21-32); Chloride 110 mmol/L (98-107); Creatinine Clr Calc Pharmacy 81.7 ml/min; Est GFR (African American) 84.2; Est GFR (Non-African American) 72.7; Glucose 114 mg/dl (70-99); Lipase 14 U/L (73-393); Magnesium 1.4 mg/dl (1.8-2.4); Potassium 4.2 mmol/L (3.5-5.1); Sodium 140 mmol/L (136-145)
[2019-08-22 19:01] LABS: Hematocrit (blood only) 17.2 % (42-52); Hemoglobin 5.8 g/dL (14.0-18.0); Mean Corpuscular Hemoglobin 28.9 pg (25-34); Mean Corpuscular Hgb Conc 33.7 g/dL (32-36); Mean Corpuscular Volume 85.6 fL (80-100); Platelet Count 2 K/uL (130-400); Platelet Estimate SIGNIFIC DECREASED (Normal); RDW Coefficient of Variation 16.5 % (11.5-14.5); RDW Standard Deviation 51.6 fL (36.4-46.3); Red Blood Count 2.01 M/uL (4.7-6.1); White Blood Count 0.14 K/uL (4.8-10.8)
[2019-08-22 19:02] LABS: Alanine Aminotransferase 11 U/L (12-78); Albumin Globulin Ratio 0.8 (0.9-2); Alkaline Phosphatase 108 U/L (45-117); Bilirubin,Total 1.1 mg/dl (0.2-1); Globulin 3.2 gm/dl (2.5-4.0); Phosphorus 2.7 mg/dl (2.5-4.9); Total Protein 5.7 gm/dl (6.4-8.2); Troponin I < 0.015 ng/ml (0-0.045)
[2019-08-22 19:06] LABS: Reticulocyte % < 0.5 % (0.5-2.0); Reticulocytes # < 0.02 10^6/uL (0.02-0.10)
[2019-08-22 19:51] LABS: Ferritin 1877.8 ng/ml (8-388)
--- NOTE | 2019-08-22 20:39 | Emergency Department Note ---
Impression & Plan T-cell lymphoma, Symptomatic anemia, Pancytopenia, Thrombocytopenia ED Provider Note NAME: MICHAEL [id number] RAQUEL AGE: 43 SEX: M ARRIVES VIA: Walk-In INFORMANT: [Patient][, ] ED PROVIDER(S): Rodo Daugherty MD CHIEF COMPLAINT: Low blood counts PLAN: Disposition: Admit MEDICAL DECISION MAKING: The patient is a 43-year-old gentleman, current inmate at [facility] with a past medical history of T-cell lymphoma undergoing chemotherapy with CHOP-E with last treatment a week ago presents emergency department with generalized weakness and lightheadedness with routine blood work today at 11:30am demonstrating recurrence of pancytopenia with more severe thrombocytopenia than previous with platelets 6K in addition to WBC 0.14 with H/H7 0.2/21.4 referred to the emergency department for evaluation. Patient had similar admission on 08/01 where he had 8/H of 6.6/19.9 and was transfused. Patient does report mild nausea but denies vomiting. He denies any fevers, chills, chest pain, shortness of breath, diarrhea, urinary symptoms. On arrival the patient is acute on chronically ill-appearing in no acute distress, afebrile with heart rate in the 120s and blood pressure 80s/50s. He appears pale and clinically dry. Given the patient's outpatient lab values he was consented for blood transfusion and crossed for irradiated PRBCs and platelets (given irradiated products on last admission). The patient's case was reviewed with Dr. Poe, who agrees with transfusion of irradiated Prbcs and platelets and plan for admission. We did repeat the patient's blood work and WBC was stable at 0.14 but with decrease in H/H down to 5.8/17.2. Platelets are also decreased to 2K. Reticulocyte percent <0.5. Chemistry without acidosis. Magnesium 1.4 with repletion provided. Total bilirubin 1.1 with direct bilirubin of 0.4, nonspecific. LFTs otherwise u nremarkable. Troponin negative/undetectable. Case was discussed with Dr. Weaver, [facility] hospitalist, who will evaluate the patient for admission. He requests we update Dr. Poe on the patient's most recent blood work to make sure we do not need to transfer to tertiary care facility. I did contact Dr. Poe again and reviewed his updated CBC and recommends to continue with plan for transfusion of blood products and there is no indication for transfer at this time. Admitting team updated. Additionally I discussed supply of blood products with blood bank. Given likelihood of requiring additional irradiated productsd the patient was ordered from additional 2 units prbcs (to hold) [total of 4 units ordered] and additional unit of platelets [total of 3 units ordered], thus blood bank will ordered replacement products, which will likely arrive in several hours and be available if needed. Admitting team updated. Triage Nursing notes reviewed and agree them. [Prior medical records reviewed] [] Vital Signs: reviewed and remarkable for hypotension. Differential diagnosis: Infection, dehydration, metabolic abnormality, hypo/hyperglycemia, electrolyte disturbance, anemia, hypoxia, cardiac sources, intracerebral event, toxicologic, neurologic, as well as other pathologies. ER treatment provided: See below. Diagnostics interpreted by me: ECG: Sinus tachcyardia, 101 bpm, no ectopy, non specific TWA, no overt ST elevation or depression, Cardiac Monitoring: An order for continuous cardiac monitoring was placed and demonstrated sinus tachycardia, 103 bpm, no ectopy. Laboratory studies: [See below] [] Imaging studies: SINGLE VIEW CHEST CLINICAL HISTORY: Atypical chest pain. FINDINGS: An AP, portable, upright chest radiograph is compared to chest x-ray and chest CT dated 07/17/2019. The examination is degraded by portable technique and patient rotation. A left subclavian central venous infusion port is unchanged in position. The heart is enlarged. The pulmonary vasculature is noncongested. An accessory azygous fissure is incidentally noted. There is chronic elevation of the left hemidiaphragm. Scarring/atelectasis is noted at the lung bases. No airspace consolidation or large pleural effusion is identified. No pneumothorax is seen. The skeletal structures are osteopenic. The bony thorax is grossly intact. 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 IMPRESSION: Cardiomegaly with no acute cardiopulmonary abnormality. Consultation(s): Dr. Poe, MELISSA Heme-onc Dr. Weaver, [facility] hospitalist. HPI: The patient is a 43-year-old gentleman, current inmate at [facility] with a past medical history of T-cell lymphoma undergoing chemotherapy with CHOP-E with last treatment a week ago presents emergency department with generalized weakness and lightheadedness with routine blood work today at 11:30am demonstrating recurrence of pancytopenia with more severe thrombocytopenia than previous with platelets 6K in addition to WBC 0.14 with H/H7 0.2/21.4 referred to the emergency department for evaluation. Patient had similar admission on 08/01 where he had 8/H of 6.6/19.9 and was transfused. Patient does report mild nausea but denies vomiting. He denies any fevers, chills, chest pain, shortness of breath, diarrhea, urinary symptoms. ROS: See above HPI for pertinent positives & negatives. A total of [10] systems reviewed and were otherwise negative. PAST MEDICAL HISTORY:[See Below] PAST SURGICAL HISTORY:[See Below] FAMILY HISTORY:[See Below] SOCIAL HISTORY:[See Below] HOME MEDICATIONS:[See Below] ALLERGIES:[See Below] VITALS:[See Below] PHYSICAL EXAMINATION: GENERAL: Awake, alert, acute on chronically ill-appearing, in no distress HENT: Normocephalic, atraumatic. Oropharynx with dry mucous membranes and otherwise unremarkable. EYES: Normal conjunctiva. Sclera non-icteric. NECK: Supple. No nuchal rigidity. FROM. No JVD. RESPIRATORY: Clear to auscultation. CARDIAC: Tachycardic rate, normal rhythm. Extremities warm and well perfused. Pulses equal. ABDOMEN: Soft, non-distended. No tenderness to palpation. No rebound or guarding. No masses. RECTAL: Deferred. MUSCULOSKELETAL: Chest examination reveals no tenderness. The back is symmetrical on inspection without obvious abnormality. There is no CVA tenderness to palpation. No joint edema. LOWER EXTREMITIES: Calves are equal size bilaterally and non-tender. 1+ BLE edema. No discoloration. NEURO: Normal sensorium. No sensory or motor deficits noted. SKIN: No rash or jaundice noted. ED COURSE: Critical Care: I have personally spent greater than 135 minutes of critical care time in the direct management of this patient. This includes bedside care, interpretation of diagnostic studies, and testing, discussion with consultants, patient, and family members, and other required patient management activities. This 135 minutes is in excess of all separately billable procedures. 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 Rivas 06/16/19 Family History Other Family history non-contributory Social History Preferred Language: Angolan Communication Ability: Effective Mailer Required: No Beliefs That Will Affect Care: None marital status: Single Current Living Situation: Other Current Living Situation Comment: [facility] Other Information That Helps Us Care for You: No Feels Safe at Home: Yes Safety Concerns: Feels Safe At This Time Smoking Status: Former smoker Tobacco Type: cigarettes ; Second Hand Exposure: Yes ; Hx Alcohol Use: No Hx Substance Use: Yes substance use type: opiates and IV drugs Allergies Allergies Allergy/AdvReac Type Severity Reaction Status Date / Time No Known Drug Allergies Allergy Unknown Verified 08/22/19 18:11 Home Meds Home Medications Medication Instructions Recorded Confirmed omeprazole 40 mg PO DAILY 12/11/18 08/22/19 bisacodyl 5 mg PO DAILY PRN 06/25/19 08/22/19 docusate sodium 100 mg PO BID 06/25/19 08/22/19 acyclovir 400 mg PO BID 07/17/19 08/22/19 allopurinol 300 mg PO DAILY 07/17/19 08/22/19 fluconazole 400 mg PO DAILY 07/17/19 08/22/19 imipramine HCl 10 mg PO HS 07/17/19 08/22/19 oxycodone 10 mg PO Q4 PRN 07/17/19 08/22/19 sulfamethoxazole-trimethoprim 1 tab PO DAILY 07/17/19 08/22/19 atenolol 50 mg PO DAILY 07/26/19 08/22/19 oxycodone 40 mg PO BID 07/26/19 08/22/19 Neupogen 480 mcg SUBCUT DAILY 08/02/19 08/22/19 prochlorperazine maleate 10 mg PO QID PRN 08/02/19 08/22/19 [Compazine] Magic Swizzle 30 ml PO QID 08/22/19 08/22/19 bacitracin zinc 1 applic TOPICAL Q8H 08/22/19 08/22/19 itraconazole 200 mg PO DAILY 08/22/19 08/22/19 levofloxacin 750 mg PO DAILY 08/22/19 08/22/19 Results & Data (ED) Vital Signs Vital Signs - 24 hr 08/22/19 16:14 08/22/19 18:05 08/22/19 18:22 Temperature 37.2 C Temperature Source Oral Pulse Rate 126 H Pulse Rate from SpO2 Sensor Pulse Rhythm Pulse Strength Respiratory Rate 18 18 Respiratory Effort / Characteristics Non-Labored Spontaneous Respiratory Depth Normal Respiratory Pattern Regular Blood Pressure 89/63 L Blood Pressure [Right Arm] 106/63 Blood Pressure Mean 71 Blood Pressure Mean [Right Arm] 77 Blood Pressure Position Blood Pressure Position [Right Arm] Lying Pulse Oximetry 97 95 95 Oxygen Delivery Method Room Air Room Air Room Air Sepsis Recent Fever Within 48 Hours No Sepsis New/Unexplained Change in Mental Status No Sepsis Action Taken by Nursing No Action Required 08/22/19 18:23 08/22/19 19:16 08/22/19 19:30 Temperature Temperature Source Pulse Rate 103 H 102 H 91 H Pulse Rate from SpO2 Sensor 104 H 105 H 91 H Pulse Rhythm Pulse Strength Respiratory Rate 21 16 14 Respiratory Effort / Characteristics Respiratory Depth Respiratory Pattern Blood Pressure 106/63 90/54 L 118/57 L Blood Pressure [Right Arm] Blood Pressure Mean 73 61 63 Blood Pressure Mean [Right Arm] Blood Pressure Position Blood Pressure Position [Right Arm] Pulse Oximetry 96 91 93 Oxygen Delivery Method Sepsis Recent Fever Within 48 Hours Sepsis New/Unexplained Change in Mental Status Sepsis Action Taken by Nursing 08/22/19 20:01 08/22/19 20:06 08/22/19 20:23 Temperature 37.3 C 37.2 C Temperature Source Oral Oral Pulse Rate 105 H 107 H 96 H Pulse Rate from SpO2 Sensor 105 H Pulse Rhythm Regular Regular Pulse Strength Normal Normal Respiratory Rate 14 20 22 Respiratory Effort / Characteristics Respiratory Depth Respiratory Pattern Blood Pressure 90/70 L 90/70 L 91/57 L Blood Pressure [Right Arm] Blood Pressure Mean 76 76 68 Blood Pressure Mean [Right Arm] Blood Pressure Position Sitting Lying Blood Pressure Position [Right Arm] Pulse Oximetry 100 97 96 Oxygen Delivery Method Sepsis Recent Fever Within 48 Hours Sepsis New/Unexplained Change in Mental Status Sepsis Action Taken by Nursing 08/22/19 20:26 08/22/19 20:30 08/22/19 20:39 Temperature 37.4 C Temperature Source Oral Pulse Rate 90 93 H 94 H Pulse Rate from SpO2 Sensor 91 H 93 H Pulse Rhythm Regular Pulse Strength Normal Respiratory Rate 17 21 20 Respiratory Effort / Characteristics Respiratory Depth Respiratory Pattern Blood Pressure 91/57 L 97/64 L 90/62 L Blood Pressure [Right Arm] Blood Pressure Mean 68 76 71 Blood Pressure Mean [Right Arm] Blood Pressure Position Lying Blood Pressure Position [Right Arm] Pulse Oximetry 94 96 94 Oxygen Delivery Method Sepsis Recent Fever Within 48 Hours Sepsis New/Unexplained Change in Mental Status Sepsis Action Taken by Nursing 08/22/19 20:40 08/22/19 20:52 08/22/19 20:55 Temperature 37.6 C H 37.1 C Temperature Source Oral Oral Pulse Rate 91 H 92 H 92 H Pulse Rate from SpO2 Sensor 92 H 92 H Pulse Rhythm Regular Regular Pulse Strength Normal Normal Respiratory Rate 20 14 20 Respiratory Effort / Characteristics Respiratory Depth Respiratory Pattern Blood Pressure 90/62 L 93/57 L 92/61 L Blood Pressure [Right Arm] Blood Pressure Mean 68 74 71 Blood Pressure Mean [Right Arm] Blood Pressure Position Lying Lying Blood Pressure Position [Right Arm] Pulse Oximetry 94 93 97 Oxygen Delivery Method Sepsis Recent Fever Within 48 Hours Sepsis New/Unexplained Change in Mental Status Sepsis Action Taken by Nursing 08/22/19 21:00 08/22/19 21:07 08/22/19 21:10 Temperature 37.1 C Temperature Source Oral Pulse Rate 90 96 H 90 Pulse Rate from SpO2 Sensor 90 97 H Pulse Rhythm Regular Pulse Strength Normal Respiratory Rate 19 16 20 Respiratory Effort / Characteristics Respiratory Depth Respiratory Pattern Blood Pressure 91/52 L 92/61 L 92/61 L Blood Pressure [Right Arm] Blood Pressure Mean 57 67 71 Blood Pressure Mean [Right Arm] Blood Pressure Position Lying Blood Pressure Position [Right Arm] Pulse Oximetry 92 96 93 Oxygen Delivery Method Sepsis Recent Fever Within 48 Hours Sepsis New/Unexplained Change in Mental Status Sepsis Action Taken by Nursing Laboratory Data Attestation: I reviewed the patient's lab results. Result diagrams: 08/22/19 18:27 08/22/19 18:27 Lab Results 08/22/19 08/22/19 08/22/19 Range/Units 18:27 18:27 18:27 WBC 0.14 L* (4.8-10.8) K/uL RBC 2.01 L (4.7-6.1) M/uL Hgb 5.8 L* (14.0-18.0) g/dL Hct 17.2 L* (42-52) % MCV 85.6 (80-100) fL MCH 28.9 (25-34) pg MCHC 33.7 (32-36) g/dL RDW Std Deviation 51.6 H (36.4-46.3) fL RDW Coeff of Elier 16.5 H (11.5-14.5) % Plt Count 2 L* D (130-400) K/uL Immature Gran % (Auto) Cancelled Neut % (Auto) Cancelled Lymph % (Auto) Cancelled [place] % (Auto) Cancelled Eos % (Auto) Cancelled Baso % (Auto) Cancelled Reticulocyte % (Auto) < 0.5 L (0.5-2.0) % Neut # (Auto) Cancelled Lymph # (Auto) Cancelled [place] # (Auto) Cancelled Eos # (Auto) Cancelled Baso # (Auto) Cancelled Reticulocyte # < 0.02 L (0.02-0.10) 10^6/uL Immature Gran # (Auto) Cancelled Absolute Nucleated RBC 0.00 (0-0) K/uL Nucleated RBC % (auto) 0.0 % Neutrophils % (Manual) Cancelled Band Neutrophils % Cancelled Lymphocytes % (Manual) Cancelled Prolymphocyte % Cancelled Reactive Lymphs % (Man) Cancelled Monocytes % (Manual) Cancelled Eosinophils % (Manual) Cancelled Basophils % (Manual) Cancelled Metamyelocytes % (Man) Cancelled Myelocytes % (Man) Cancelled Promyelocytes % (Man) Cancelled Blast Cells % (Manual) Cancelled Plasma Cell % (Manual) Cancelled Other Cells % Cancelled Nucleated RBC % Cancelled Neutrophils # (Manual) Cancelled Band Neutrophils # Cancelled Total Absolute Neuts Cancelled Lymphocytes # (Manual) Cancelled Prolymphocyte # Cancelled Reactive Lymphs # Cancelled Total Abs Lymphocytes Cancelled Monocytes # (Manual) Cancelled Eosinophils # (Manual) Cancelled Basophils # (Manual) Cancelled Metamyelocytes # (Man) Cancelled Myelocytes # (Manual) Cancelled Promyelocytes # (Man) Cancelled Blast Cells # (Man) Cancelled Plasma Cell # (Manual) Cancelled Other Cells # Cancelled Nucleated RBCs # (Man) Cancelled Hypersegmented Neuts Cancelled Hyposegmented Neuts Cancelled Hypogranular Neuts Cancelled Large Granular Lymphs Cancelled # Lrg Granular Lymphs Cancelled Hairy Cells Cancelled Smudge Cells Cancelled Toxic Granulation Cancelled Toxic Vacuolation Cancelled Dohle Bodies Cancelled Monse Rods Cancelled Platelet Estimate SIGNIFIC DECREASED (Normal) Hypogranular Platelets Cancelled Clumped Platelets Cancelled Giant Platelets Cancelled Platelet Satelliting Cancelled RBC Morphology Cancelled Polychromasia Cancelled Hypochromasia Cancelled Poikilocytosis Cancelled Basophilic Stippling Cancelled Anisocytosis Cancelled Microcytosis Cancelled Macrocytosis Cancelled Spherocytes Cancelled Pappenheimer Bodies Cancelled Sickle Cells Cancelled Target Cells Cancelled Tear Drop Cells Cancelled Ovalocytes Cancelled Stomatocytes Cancelled [place] Bodies Cancelled Echinocytes Cancelled Acanthocytes (Spur) Cancelled Rouleaux Cancelled RBC Agglutinates Cancelled Schistocytes Cancelled RBC Morph Comment Cancelled Sezary Cell Cancelled PT 11.9 (9.0-12.0) Seconds INR 1.1 (0.9-1.1) APTT 31.1 H (21.0-31.0) Seconds PTT Ratio 1.1 Sodium 140 (136-145) mmol/L Potassium 4.2 (3.5-5.1) mmol/L Chloride 110 H (98-107) mmol/L Carbon Dioxide 22 (21-32) mmol/L Anion Gap 8.0 (3-11) BUN 22 H (7-18) mg/dl Creatinine 1.22 (0.6-1.4) mg/dl Est Cr Clr Drug Dosing 81.7 ml/min Est GFR ( Amer) 84.2 Est GFR (Non-Af Amer) 72.7 BUN/Creatinine Ratio 18.0 (10-20) Glucose 114 H (70-99) mg/dl Calcium 8.8 (8.5-10.1) mg/dl Phosphorus 2.7 (2.5-4.9) mg/dl Magnesium 1.4 L (1.8-2.4) mg/dl Iron (35-175) mcg/dl TIBC (250-450) mcg/dl Transferrin (200-360) mg/dl Ferritin (8-388) ng/ml Total Bilirubin 1.1 H (0.2-1) mg/dl Direct Bilirubin 0.4 H (0-0.2) mg/dl AST 4 L (15-37) U/L ALT 11 L (12-78) U/L Alkaline Phosphatase 108 (45-117) U/L Lactate Dehydrogenase (87-241) U/L Troponin I < 0.015 (0-0.045) ng/ml Total Protein 5.7 L (6.4-8.2) gm/dl Albumin 2.5 L (3.4-5.0) gm/dl Globulin 3.2 (2.5-4.0) gm/dl Albumin/Globulin Ratio 0.8 L (0.9-2) Lipase 14 L (73-393) U/L Vitamin B12 (211-911) pg/ml Folate (>5.38) ng/ml Blood Type Antibody Screen Crossmatch 08/22/19 08/22/19 08/22/19 Range/Units 18:27 19:16 19:16 WBC (4.8-10.8) K/uL RBC (4.7-6.1) M/uL Hgb (14.0-18.0) g/dL Hct (42-52) % MCV (80-100) fL MCH (25-34) pg MCHC (32-36) g/dL RDW Std Deviation (36.4-46.3) fL RDW Coeff of Elier (11.5-14.5) % Plt Count (130-400) K/uL Immature Gran % (Auto) Neut % (Auto) Lymph % (Auto) [place] % (Auto) Eos % (Auto) Baso % (Auto) Reticulocyte % (Auto) (0.5-2.0) % Neut # (Auto) Lymph # (Auto) [place] # (Auto) Eos # (Auto) Baso # (Auto) Reticulocyte # (0.02-0.10) 10^6/uL Immature Gran # (Auto) Absolute Nucleated RBC (0-0) K/uL Nucleated RBC % (auto) % Neutrophils % (Manual) Band Neutrophils % Lymphocytes % (Manual) Prolymphocyte % Reactive Lymphs % (Man) Monocytes % (Manual) Eosinophils % (Manual) Basophils % (Manual) Metamyelocytes % (Man) Myelocytes % (Man) Promyelocytes % (Man) Blast Cells % (Manual) Plasma Cell % (Manual) Other Cells % Nucleated RBC % Neutrophils # (Manual) Band Neutrophils # Total Absolute Neuts Lymphocytes # (Manual) Prolymphocyte # Reactive Lymphs # Total Abs Lymphocytes Monocytes # (Manual) Eosinophils # (Manual) Basophils # (Manual) Metamyelocytes # (Man) Myelocytes # (Manual) Promyelocytes # (Man) Blast Cells # (Man) Plasma Cell # (Manual) Other Cells # Nucleated RBCs # (Man) Hypersegmented Neuts Hyposegmented Neuts Hypogranular Neuts Large Granular Lymphs # Lrg Granular Lymphs Hairy Cells Smudge Cells Toxic Granulation Toxic Vacuolation Dohle Bodies Monse Rods Platelet Estimate (Normal) Hypogranular Platelets Clumped Platelets Giant Platelets Platelet Satelliting RBC Morphology Polychromasia Hypochromasia Poikilocytosis Basophilic Stippling Anisocytosis Microcytosis Macrocytosis Spherocytes Pappenheimer Bodies Sickle Cells Target Cells Tear Drop Cells Ovalocytes Stomatocytes [place] Bodies Echinocytes Acanthocytes (Spur) Rouleaux RBC Agglutinates Schistocytes RBC Morph Comment Sezary Cell PT (9.0-12.0) Seconds INR (0.9-1.1) APTT (21.0-31.0) Seconds PTT Ratio Sodium (136-145) mmol/L Potassium (3.5-5.1) mmol/L Chloride (98-107) mmol/L Carbon Dioxide (21-32) mmol/L Anion Gap (3-11) BUN (7-18) mg/dl Creatinine (0.6-1.4) mg/dl Est Cr Clr Drug Dosing ml/min Est GFR ( Amer) Est GFR (Non-Af Amer) BUN/Creatinine Ratio (10-20) Glucose (70-99) mg/dl Calcium (8.5-10.1) mg/dl Phosphorus (2.5-4.9) mg/dl Magnesium (1.8-2.4) mg/dl Iron 148 (35-175) mcg/dl TIBC 143 L (250-450) mcg/dl Transferrin 109 L (200-360) mg/dl Ferritin 1877.8 H (8-388) ng/ml Total Bilirubin (0.2-1) mg/dl Direct Bilirubin (0-0.2) mg/dl AST (15-37) U/L ALT (12-78) U/L Alkaline Phosphatase (45-117) U/L Lactate Dehydrogenase (87-241) U/L Troponin I (0-0.045) ng/ml Total Protein (6.4-8.2) gm/dl Albumin (3.4-5.0) gm/dl Globulin (2.5-4.0) gm/dl Albumin/Globulin Ratio (0.9-2) Lipase (73-393) U/L Vitamin B12 (211-911) pg/ml Folate 2.49 L (>5.38) ng/ml Blood Type A Positive Antibody Screen NEGATIVE Crossmatch See Detail 08/22/19 08/22/19 Range/Units 19:16 19:16 WBC (4.8-10.8) K/uL RBC (4.7-6.1) M/uL Hgb (14.0-18.0) g/dL Hct (42-52) % MCV (80-100) fL MCH (25-34) pg MCHC (32-36) g/dL RDW Std Deviation (36.4-46.3) fL RDW Coeff of Elier (11.5-14.5) % Plt Count (130-400) K/uL Immature Gran % (Auto) Neut % (Auto) Lymph % (Auto) [place] % (Auto) Eos % (Auto) Baso % (Auto) Reticulocyte % (Auto) (0.5-2.0) % Neut # (Auto) Lymph # (Auto) [place] # (Auto) Eos # (Auto) Baso # (Auto) Reticulocyte # (0.02-0.10) 10^6/uL Immature Gran # (Auto) Absolute Nucleated RBC (0-0) K/uL Nucleated RBC % (auto) % Neutrophils % (Manual) Band Neutrophils % Lymphocytes % (Manual) Prolymphocyte % Reactive Lymphs % (Man) Monocytes % (Manual) Eosinophils % (Manual) Basophils % (Manual) Metamyelocytes % (Man) Myelocytes % (Man) Promyelocytes % (Man) Blast Cells % (Manual) Plasma Cell % (Manual) Other Cells % Nucleated RBC % Neutrophils # (Manual) Band Neutrophils # Total Absolute Neuts Lymphocytes # (Manual) Prolymphocyte # Reactive Lymphs # Total Abs Lymphocytes Monocytes # (Manual) Eosinophils # (Manual) Basophils # (Manual) Metamyelocytes # (Man) Myelocytes # (Manual) Promyelocytes # (Man) Blast Cells # (Man) Plasma Cell # (Manual) Other Cells # Nucleated RBCs # (Man) Hypersegmented Neuts Hyposegmented Neuts Hypogranular Neuts Large Granular Lymphs # Lrg Granular Lymphs Hairy Cells Smudge Cells Toxic Granulation Toxic Vacuolation Dohle Bodies Monse Rods Platelet Estimate (Normal) Hypogranular Platelets Clumped Platelets Giant Platelets Platelet Satelliting RBC Morphology Polychromasia Hypochromasia Poikilocytosis Basophilic Stippling Anisocytosis Microcytosis Macrocytosis Spherocytes Pappenheimer Bodies Sickle Cells Target Cells Tear Drop Cells Ovalocytes Stomatocytes [place] Bodies Echinocytes Acanthocytes (Spur) Rouleaux RBC Agglutinates Schistocytes RBC Morph Comment Sezary Cell PT (9.0-12.0) Seconds INR (0.9-1.1) APTT (21.0-31.0) Seconds PTT Ratio Sodium (136-145) mmol/L Potassium (3.5-5.1) mmol/L Chloride (98-107) mmol/L Carbon Dioxide (21-32) mmol/L Anion Gap (3-11) BUN (7-18) mg/dl Creatinine (0.6-1.4) mg/dl Est Cr Clr Drug Dosing ml/min Est GFR ( Amer) Est GFR (Non-Af Amer) BUN/Creatinine Ratio (10-20) Glucose (70-99) mg/dl Calcium (8.5-10.1) mg/dl Phosphorus (2.5-4.9) mg/dl Magnesium (1.8-2.4) mg/dl Iron (35-175) mcg/dl TIBC (250-450) mcg/dl Transferrin (200-360) mg/dl Ferritin (8-388) ng/ml Total Bilirubin (0.2-1) mg/dl Direct Bilirubin (0-0.2) mg/dl AST (15-37) U/L ALT (12-78) U/L Alkaline Phosphatase (45-117) U/L Lactate Dehydrogenase 124 (87-241) U/L Troponin I (0-0.045) ng/ml Total Protein (6.4-8.2) gm/dl Albumin (3.4-5.0) gm/dl Globulin (2.5-4.0) gm/dl Albumin/Globulin Ratio (0.9-2) Lipase (73-393) U/L Vitamin B12 861 (211-911) pg/ml Folate (>5.38) ng/ml Blood Type Antibody Screen Crossmatch Administered Medications Lidocaine HCl 60 ml/Diphenhydramine HCl 150 mg/ Al Hydrox/Mg Hydrox/Simethicone 60 ml/ Glycerin 60 ml/ BARCODE IDENTIFIER 1 ea 0 ml MT QID KEITH Stop: 09/21/19 23:29 Last Admin: 08/23/19 00:18 Dose: 30 ml Documented by: [id number] Acyclovir Sodium 400 mg/ (Dextrose) 108 mls @ 100 mls/hr IV Q12H KEITH Stop: 09/21/19 22:59 Last Admin: 08/23/19 00:22 Dose: 100 mls/hr Documented by: [id number] Pantoprazole Sodium 40 mg/ (Dextrose) 100 mls @ 20 mls/hr IV Q5H KEITH Stop: 09/21/19 22:44 Last Admin: 08/23/19 00:14 Dose: Not Given Documented by: [id number] Vancomycin HCl 2,000 mg/ (Sodium Chloride) 540 mls @ 200 mls/hr IV NOW ONE Stop: 08/23/19 01:11 Last Admin: 08/22/19 23:35 Dose: 200 mls/hr, 200 mls/hr Documented by: [id number] Imipramine HCl (Tofranil) 10 mg PO HS KEITH Stop: 09/21/19 22:13 Last Admin: 08/23/19 00:18 Dose: 10 mg Documented by: [id number] Oxycodone HCl (Oxycontin) 40 mg PO BID KEITH Stop: 09/05/19 23:44 Last Admin: 08/23/19 00:17 Dose: 40 mg Documented by: [id number] Discontinued Medications Sodium Chloride (Nss) 500 mls @ 999 mls/hr IV .Q31M ONE Stop: 08/22/19 18:30 Last Infusion: 08/22/19 19:52 Dose: 0 mls/hr Documented by: [id number] Admin: 08/22/19 19:12 Dose: 999 mls/hr Documented by: [id number] Prochlorperazine (Compazine) 2 mls @ 1 mls/min IV ONE ONE Stop: 08/22/19 18:01 Last Admin: 08/22/19 19:12 Dose: 1 mls/min Documented by: [id number] Magnesium Sulfate/Dextrose (Magnesium Sulfate / D5w) 1 gm in 100 mls @ 100 mls/hr IV Q1H KEITH Stop: 08/22/19 21:58 Last Admin: 08/22/19 23:35 Dose: 100 mls/hr Documented by: [id number] Sodium Chloride (Nss 1000ml) 1,000 mls @ 999 mls/hr IV .Q1H1M STA Stop: 08/22/19 22:36 Last Admin: 08/23/19 00:12 Dose: Not Given Documented by: [id number] Piperacillin Sod/Tazobactam (Sod 4.5 gm/ Dextrose) 120 mls @ 200 mls/hr IV NOW ONE; Protocol Stop: 08/22/19 23:05 Last Admin: 08/22/19 23:36 Dose: 200 mls/hr Documented by: [id number] Folic Acid 1 mg/ Syringe 10 mls @ 5 mls/min IV ONE ONE Stop: 08/22/19 23:01 Last Admin: 08/23/19 00:23 Dose: 5 mls/min Documented by: [id number] Blood Pressure Blood Pressure Findings: Low blood pressure Blood Pressure Disposition: further management by hospitalist Discharge Plan Visit Data Chief Complaint: Abnormal Labs/Diagnostic Testing Stated Complaint: LOW PLATELETS ED Provider: Rodo Daugherty Discharge Problem: T-cell lymphoma, Symptomatic anemia, Pancytopenia, Thrombocytopenia
[2019-08-22] MEDS ORDERED: SODIUM CHLORIDE 0.9% 1000ML 1,000 ML IV STA (21:36)
--- NOTE | 2019-08-22 21:44 | History & Physical Report ---
Date of Service August 22, 2019 Assessment & Plan (1) Pancytopenia due to antineoplastic chemotherapy: 43 yo M with Tcell Lymphoma under treatment with chemotherapy admitted to ICU for acute symptomatic anemia with concern for sepsis. 1) Pancytopenia due to antineoplastic therapy - WBC 0.14, Hg 5.8, Plt 2 on admission. Per note from Surgery yesterday 08/20, Hg at the time was 7 and Plts 15. - retic count <0.5. Unable to provide ANC due to low number. - peripheral smear pending - received 1 unit irradiated Platelets in ER, as well as 1u irradiated pRBCs in ER - 2 more units plts and 3 units pRBCs ordered for total 3 units of platelets and 4 units of pRBCS to be transfused - on Neupogen 480u SQ daily, continued - follows with Dr. Poe from [facility]; consult placed for recommendations going forward regarding management - neutropenic precautions 2) Sepsis? - Hypotensive and tachycardic - Neutropenic, unable to mount immune response to be febrile - Mediport in place without overlying erythema, purulence or signs of infection - empiric coverage with Vanc + Zosyn given high risk for decompensation and opportunistic organisms - suppressive antifungals and antiviral medications continued [acyclovir 400 mg BID, fluconazole 400 mg daily] - home suppressive antibiotics Bactrim and levofloxacin held - blood cultures ordered - trend CBC - procal added on to blood in lab 3) Hypomagnesemia - repleted 2g mag sulfate in ED - repeat mag in AM 4) Iron Deficiency Anemia - Iron 148, TIBC 143, Transferrin 109, Ferritin 1877 - folate 2.49, B12 861 - IV folate 1 mg daily - holding iron supplementation in setting of questionable infectious agent 5) Hemolysis - haptoglobin pending - PT, INR WNL - APTT elevated at 31.1 - consider GI consult for EGD/C-scope if concerned for active bleeding 6) Malnutrition - surgical note from 08/20 with plan for near future gastrostomy tube placement - TPN consult placed - NPO DVT ppx: contraindicated FEN/GI: NPO, Protonix drip Dispo: ICU Code Status: Conditional Code (2) T-cell lymphoma: (3) Hypokalemia: (4) History of paroxysmal supraventricular tachycardia: (5) Symptomatic anemia: (6) Sepsis: History of Present Illness 43 yo M with T-cell lymphoma on chemotherapy, recently discharged from hospital on 08/02 for symptomatic anemia, chronic pancytopenia secondary to antineoplastic agents, hx paroxysmal SVT brought to the ED from [facility] for increasing weakness and lethargy over the past 2 days. Attests to decrease energy, decreased appetite, increased nausea, no episodes of emesis. Denies any BRBPR, melanotic stools. Attests to bruising easily as he saw his physician a few days ago and now has purple bruises where they felt his legs. Denies CP, SOB, light headedness, dizziness. Primary Care Provider: CELE [facility]hu[facility] Allergies Allergy/AdvReac Type Severity Reaction Status Date / Time No Known Drug Allergies Allergy Unknown Verified 08/22/19 18:11 Home Medications Home Medications Medication Instructions Recorded Confirmed Type omeprazole 40 mg PO DAILY 12/11/18 08/22/19 History bisacodyl 5 mg PO DAILY PRN 06/25/19 08/22/19 History docusate sodium 100 mg PO BID 06/25/19 08/22/19 History acyclovir 400 mg PO BID 07/17/19 08/22/19 History allopurinol 300 mg PO DAILY 07/17/19 08/22/19 History fluconazole 400 mg PO DAILY 07/17/19 08/22/19 History imipramine HCl 10 mg PO HS 07/17/19 08/22/19 History oxycodone 10 mg PO Q4 PRN 07/17/19 08/22/19 History sulfamethoxazole-trimethoprim 1 tab PO DAILY 07/17/19 08/22/19 History atenolol 50 mg PO DAILY 07/26/19 08/22/19 History oxycodone 40 mg PO BID 07/26/19 08/22/19 History Neupogen 480 mcg SUBCUT DAILY 08/02/19 08/22/19 History prochlorperazine maleate 10 mg PO QID PRN 08/02/19 08/22/19 History [Compazine] Magic Swizzle 30 ml PO QID 08/22/19 08/22/19 History bacitracin zinc 1 applic TOPICAL Q8H 08/22/19 08/22/19 History itraconazole 200 mg PO DAILY 08/22/19 08/22/19 History levofloxacin 750 mg PO DAILY 08/22/19 08/22/19 History Past Med/Surg History Medical History 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 Rivas 06/16/19 Family History Other Family history non-contributory Social History Preferred Language: Bulgarian Communication Ability: Effective School Physical Therapist Required: No Beliefs That Will Affect Care: None marital status: Single Current Living Situation: Other Current Living Situation Comment: [facility] Feels Safe at Home: Yes Smoking Status: Former smoker Tobacco Type: cigarettes ; Second Hand Exposure: Yes ; Hx Alcohol Use: No Hx Substance Use: Yes substance use type: opiates and IV drugs Review of Systems Constitutional: + chills and + fatigue; no fever and no body aches Respiratory: no cough and no dyspnea Cardiovascular: no chest pain, no dyspnea and no edema Gastrointestinal: + nausea; no abdominal pain, no vomiting, no constipation, no diarrhea/loose stools and no blood in stools Integumentary: + unusual bruising Neurologic: + tingling (distal tips of fingers, 2/2 chemo); no numbness Physical Exam Constitutional: + ill appearing, + thin, + frail appearing, cooperative and + malnourished; no acute distress Neck: normal visual inspection Respiratory: normal respiratory effort and able to speak in complete sentences; no respiratory distress, no labored breathing, no retractions, no cough and no audible wheezes Auscultation: lungs clear to auscultation bilaterally; no crackles, no rales, no rhonchi and no wheezes Cardiovascular: Rate/Rhythm: regular rate and regular rhythm Heart Sounds: normal S1 and normal S2; no gallop, no murmur and no cardiac rub Vessels: pos terior tibial pulses present Extremities: no calf tenderness (BL calves notably larger/swollen appearing compared to ankles and feet), no pedal edema and no edema Gastrointestinal (Abdomen): Inspection/Auscultation: abdomen normal to inspection, normal bowel sounds and + scaphoid; abdomen not distended Percussion/Palpation: abdomen soft; abdomen nontender, no guarding, abdomen not rigid and no abdominal mass Results & Data Results & Data ([facility]) Vital Signs (Past 12 Hours) Vital Signs Temp Pulse Resp BP BP Pulse Ox 08/22/19 21:10 37.1 C 90 20 92/61 L 93 08/22/19 20:55 37.1 C 92 H 20 92/61 L 97 08/22/19 20:52 37.6 C H 91 H 20 93/57 L 94 08/22/19 20:39 37.4 C 94 H 20 90/62 L 94 08/22/19 20:23 37.2 C 96 H 22 91/57 L 96 08/22/19 20:06 37.3 C 107 H 20 90/70 L 97 08/22/19 20:01 105 H 14 90/70 L 100 08/22/19 19:30 91 H 14 118/57 L 93 08/22/19 19:16 102 H 16 90/54 L 91 08/22/19 18:23 103 H 21 106/63 96 08/22/19 18:22 18 106/63 95 08/22/19 18:05 95 08/22/19 16:14 37.2 C 126 H 18 89/63 L 97 Laboratory Results WBC 0.14 K/uL (4.8-10.8) L* 08/22/19 18:27 RBC 2.01 M/uL (4.7-6.1) L 08/22/19 18:27 Hgb 5.8 g/dL (14.0-18.0) L* 08/22/19 18:27 Hct 17.2 % (42-52) L* 08/22/19 18:27 MCV 85.6 fL (80-100) 08/22/19 18:27 MCH 28.9 pg (25-34) 08/22/19 18:27 MCHC 33.7 g/dL (32-36) 08/22/19 18:27 RDW Std Deviation 51.6 fL (36.4-46.3) H 08/22/19 18:27 RDW Coeff of Elier 16.5 % (11.5-14.5) H 08/22/19 18:27 Plt Count 2 K/uL (130-400) L* D 08/22/19 18:27 Immature Gran % (Auto) Cancelled 08/22/19 18:27 Neut % (Auto) Cancelled 08/22/19 18:27 Lymph % (Auto) Cancelled 08/22/19 18:27 [place] % (Auto) Cancelled 08/22/19 18:27 Eos % (Auto) Cancelled 08/22/19 18:27 Baso % (Auto) Cancelled 08/22/19 18:27 Reticulocyte % (Auto) < 0.5 % (0.5-2.0) L 08/22/19 18:27 Neut # (Auto) Cancelled 08/22/19 18:27 Lymph # (Auto) Cancelled 08/22/19 18:27 [place] # (Auto) Cancelled 08/22/19 18:27 Eos # (Auto) Cancelled 08/22/19 18:27 Baso # (Auto) Cancelled 08/22/19 18:27 Reticulocyte # < 0.02 10^6/uL (0.02-0.10) L 08/22/19 18:27 Immature Gran # (Auto) Cancelled 08/22/19 18:27 Absolute Nucleated RBC 0.00 K/uL (0-0) 08/22/19 18:27 Nucleated RBC % (auto) 0.0 % 08/22/19 18:27 Neutrophils % (Manual) Cancelled 08/22/19 18:27 Band Neutrophils % Cancelled 08/22/19 18:27 Lymphocytes % (Manual) Cancelled 08/22/19 18:27 Prolymphocyte % Cancelled 08/22/19 18:27 Reactive Lymphs % (Man) Cancelled 08/22/19 18:27 Monocytes % (Manual) Cancelled 08/22/19 18:27 Eosinophils % (Manual) Cancelled 08/22/19 18:27 Basophils % (Manual) Cancelled 08/22/19 18:27 Metamyelocytes % (Man) Cancelled 08/22/19 18:27 Myelocytes % (Man) Cancelled 08/22/19 18:27 Promyelocytes % (Man) Cancelled 08/22/19 18:27 Blast Cells % (Manual) Cancelled 08/22/19 18:27 Plasma Cell % (Manual) Cancelled 08/22/19 18:27 Other Cells % Cancelled 08/22/19 18:27 Nucleated RBC % Cancelled 08/22/19 18:27 Neutrophils # (Manual) Cancelled 08/22/19 18:27 Band Neutrophils # Cancelled 08/22/19 18:27 Total Absolute Neuts Cancelled 08/22/19 18:27 Lymphocytes # (Manual) Cancelled 08/22/19 18:27 Prolymphocyte # Cancelled 08/22/19 18:27 Reactive Lymphs # Cancelled 08/22/19 18:27 Total Abs Lymphocytes Cancelled 08/22/19 18:27 Monocytes # (Manual) Cancelled 08/22/19 18:27 Eosinophils # (Manual) Cancelled 08/22/19 18:27 Basophils # (Manual) Cancelled 08/22/19 18:27 Metamyelocytes # (Man) Cancelled 08/22/19 18:27 Myelocytes # (Manual) Cancelled 08/22/19 18:27 Promyelocytes # (Man) Cancelled 08/22/19 18:27 Blast Cells # (Man) Cancelled 08/22/19 18:27 Plasma Cell # (Manual) Cancelled 08/22/19 18:27 Other Cells # Cancelled 08/22/19 18:27 Nucleated RBCs # (Man) Cancelled 08/22/19 18:27 Hypersegmented Neuts Cancelled 08/22/19 18:27 Hyposegmented Neuts Cancelled 08/22/19 18:27 Hypogranular Neuts Cancelled 08/22/19 18:27 Large Granular Lymphs Cancelled 08/22/19 18:27 # Lrg Granular Lymphs Cancelled 08/22/19 18:27 Hairy Cells Cancelled 08/22/19 18:27 Smudge Cells Cancelled 08/22/19 18:27 Toxic Granulation Cancelled 08/22/19 18:27 Toxic Vacuolation Cancelled 08/22/19 18:27 Dohle Bodies Cancelled 08/22/19 18:27 Monse Rods Cancelled 08/22/19 18:27 Platelet Estimate SIGNIFIC DECREASED (Normal) 08/22/19 18:27 Hypogranular Platelets Cancelled 08/22/19 18:27 Clumped Platelets Cancelled 08/22/19 18:27 Giant Platelets Cancelled 08/22/19 18:27 Platelet Satelliting Cancelled 08/22/19 18:27 RBC Morphology Cancelled 08/22/19 18:27 Polychromasia Cancelled 08/22/19 18:27 Hypochromasia Cancelled 08/22/19 18:27 Poikilocytosis Cancelled 08/22/19 18:27 Basophilic Stippling Cancelled 08/22/19 18:27 Anisocytosis Cancelled 08/22/19 18:27 Microcytosis Cancelled 08/22/19 18:27 Macrocytosis Cancelled 08/22/19 18:27 Spherocytes Cancelled 08/22/19 18:27 Pappenheimer Bodies Cancelled 08/22/19 18:27 Sickle Cells Cancelled 08/22/19 18:27 Target Cells Cancelled 08/22/19 18:27 Tear Drop Cells Cancelled 08/22/19 18:27 Ovalocytes Cancelled 08/22/19 18:27 Stomatocytes Cancelled 08/22/19 18:27 [place] Bodies Cancelled 08/22/19 18:27 Echinocytes Cancelled 08/22/19 18:27 Acanthocytes (Spur) Cancelled 08/22/19 18:27 Rouleaux Cancelled 08/22/19 18:27 RBC Agglutinates Cancelled 08/22/19 18:27 Schistocytes Cancelled 08/22/19 18:27 RBC Morph Comment Cancelled 08/22/19 18:27 Sezary Cell Cancelled 08/22/19 18:27 PT 11.9 Seconds (9.0-12.0) 08/22/19 18:27 INR 1.1 (0.9-1.1) 08/22/19 18:27 APTT 31.1 Seconds (21.0-31.0) H 08/22/19 18:27 PTT Ratio 1.1 08/22/19 18:27 Sodium 140 mmol/L (136-145) 08/22/19 18:27 Potassium 4.2 mmol/L (3.5-5.1) 08/22/19 18:27 Chloride 110 mmol/L (98-107) H 08/22/19 18:27 Carbon Dioxide 22 mmol/L (21-32) 08/22/19 18:27 Anion Gap 8.0 (3-11) 08/22/19 18:27 BUN 22 mg/dl (7-18) H 08/22/19 18:27 Creatinine 1.22 mg/dl (0.6-1.4) 08/22/19 18:27 Est Cr Clr Drug Dosing 81.7 ml/min 08/22/19 18:27 Est GFR ( Amer) 84.2 08/22/19 18:27 Est GFR (Non-Af Amer) 72.7 08/22/19 18:27 BUN/Creatinine Ratio 18.0 (10-20) 08/22/19 18:27 Glucose 114 mg/dl (70-99) H 08/22/19 18:27 Calcium 8.8 mg/dl (8.5-10.1) 08/22/19 18:27 Phosphorus 2.7 mg/dl (2.5-4.9) 08/22/19 18:27 Magnesium 1.4 mg/dl (1.8-2.4) L 08/22/19 18:27 Iron 148 mcg/dl (35-175) 08/22/19 19:16 TIBC 143 mcg/dl (250-450) L 08/22/19 19:16 Transferrin 109 mg/dl (200-360) L 08/22/19 19:16 Ferritin 1877.8 ng/ml (8-388) H 08/22/19 19:16 Total Bilirubin 1.1 mg/dl (0.2-1) H 08/22/19 18:27 Direct Bilirubin 0.4 mg/dl (0-0.2) H 08/22/19 18:27 AST 4 U/L (15-37) L 08/22/19 18:27 ALT 11 U/L (12-78) L 08/22/19 18:27 Alkaline Phosphatase 108 U/L (45-117) 08/22/19 18:27 Lactate Dehydrogenase 124 U/L (87-241) 08/22/19 19:16 Troponin I < 0.015 ng/ml (0-0.045) 08/22/19 18:27 Total Protein 5.7 gm/dl (6.4-8.2) L 08/22/19 18:27 Albumin 2.5 gm/dl (3.4-5.0) L 08/22/19 18:27 Globulin 3.2 gm/dl (2.5-4.0) 08/22/19 18: Albumin/Globulin Ratio 0.8 (0.9-2) L 08/22/19 18:27 Lipase 14 U/L (73-393) L 08/22/19 18:27 Vitamin B12 861 pg/ml (211-911) 08/22/19 19:16 Folate 2.49 ng/ml (>5.38) L 08/22/19 19:16 Blood Type A Positive 08/22/19 18: Antibody Screen NEGATIVE 08/22/19 18:27 Crossmatch See Detail 08/22/19 18: Supervising Physician Co-Signing Physician Notes Attending addendum: I have physically seen this patient, have supervised the medical residents activities, and agree with the H&P unless as otherwise noted. Assessment and Plan: Pancytopenia due to antineoplastic therapy for T-cell lymphoma- WBC 0.14 with differential pending. Continue Neupogen 480 mcg subcu daily and f ollow laboratory serially. Hemoglobin 5.8. Patient to receive 3 units PRBCs tonight and 2 units FFP. Check H&H every 6 hours. Platelets 2. Patient will receive 3 units to start, get follow-up laboratories, and has additional units to be transported from the blood bank. Consult hematology oncology Dr. Poe. Admit to the intensive care unit- Patient will require large-volume transfusions as noted above. Blood pressure has been borderline in the emergency department, with systolic blood pressure in the low 80s to low 90s. Empiric treatment with vancomycin IV and Zosyn IV. Continue acyclovir and fluconazole at suppressive doses. Holding Bactrim and levofloxacin. Follow blood culture and sensitivity Follow urine culture sensitivity Remaining orders and notations per security strategist team and heme oncology. Resident Activity Tracking Resident Involvement: Resident Care Provided Care Provided: Adult [facility] Medicine
[2019-08-22] MEDS ORDERED: MAGIC SWIZZLE PO SCH (22:14)
[2019-08-22] MEDS ORDERED: ALUMINUM/MAGNESIUM/SIMETH (MAALOX MAX) 30 ML UDC PO PRN (22:14)
[2019-08-22] MEDS ORDERED: DOCUSATE SODIUM 100 MG CAP PO SCH (22:14)
[2019-08-22] MEDS ORDERED: VANCOMYCIN CONSULT ACTIVE PRN (22:14)
[2019-08-22] MEDS ORDERED: PROCHLORPERAZINE MALEATE 10 MG TAB PO PRN (22:14)
[2019-08-22] MEDS ORDERED: IMIPRAMINE HCL 10 MG TAB PO SCH (22:14)
[2019-08-22] MEDS ORDERED: ICU PROTOCOL FOR HYPERGLYCEMIA PRN (22:14)
[2019-08-22] MEDS ORDERED: POLYETHYLENE (MIRALAX) 17 GM PACK PO PRN (22:14)
[2019-08-22] MEDS ORDERED: PIPERACILL/TAZOBAC CONSULT ACTIVE PRN (22:14)
[2019-08-22] MEDS ORDERED: ACYCLOVIR 400 MG TAB PO SCH (22:14)
[2019-08-22] MEDS ORDERED: OXYCODONE HCL 20 MG TABCR (OXYCONTIN) PO SCH (22:14)
[2019-08-22] MEDS ORDERED: TPN/PPN CONSULT PHARMACY PRN (22:18)
[2019-08-22] MEDS ORDERED: PIPERACILLIN/TAZOBACTAM 4.5 GM in DEXTROSE 5% 100 ML IV ONE (22:30)
[2019-08-22] MEDS ORDERED: VANCOMYCIN HCL 2,000 MG in SODIUM CHLORIDE 0.9% 500 ML IV ONE (22:30)
[2019-08-22] MEDS ORDERED: bisacodyL 5 MG TABEC PO PRN (22:40)
[2019-08-22] MEDS ORDERED: PANTOprazole 40 MG in DEXTROSE 5% 100 ML IV SCH (22:45)
[2019-08-22] MEDS ORDERED: DEXTROSE 10% 1,000 ML IV PRN (22:53)
[2019-08-22] MEDS ORDERED: FOLIC ACID 1 MG in SYRINGE 9.8 ML IV ONE (23:00)
--- NOTE | 2019-08-22 23:31 | Critical Care Consultation ---
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 presents to the ICU with severe pancytopenia and neutropenia Neuro - [facility] ICU: Negative Cardiac - Hypotensionresolved with blood product administration Troponin negative Sinus Rythm, QTC 452 Respiratory - Currently maintaining sats on room air Chest x-ray negative for acute process GI - Neutropenic diet LFTs within normal limits GERDPPI RENAL/LYTES - Creatinine stable, monitor electrolytes and replete as indicated - Strict I's and O's ENDO - No history diabetes thyroid disease HEME - T-cell lymphoma/pancytopeniapatient presents with severe pancytopenia following administration of CHOPE chemotherapy 8 days ago -Most likely myelosuppression related to chemo as patient previously presented with similar response following prior chemo treatment -will continue Neupogen - will follow-up Heme-Onc recommendations -Neutropenic cautions -Patient to receive 2 units irradiated RBCs, 3 units platelets initially. Will trend CBCs and transfuse as indicated Symptomatic anemiaimproving with irradiated RBC transfusions -Transfusion as above -Hemolysis and anemia labs pending -Continue to monitor and transfuse if indicated ID - Neutropenia-Currently afebrile, procalcitonin negative; initial hypotension improved with blood product administration; no evidence of active infection at this time -Blood cultures pending, MRSA nasal negative -Initially treated with vancomycin and Zosyn, however as there is no evidence for active infection, will de-escalate to empiric coverage with Bactrim, levofloxacin, fluconazole, and azithromycin for high risk neutropenic patient -Neutropenic precautions LINES/IV ACCESS - Central venous port, endurance catheter DVT PROPHYLAXIS - SCDs, holding anticoagulation for severe thrombocytopenia I have personally spent 60 minutes of critical care time in the direct management of this patient. This is a life/limb threatening event. This includes time spent evaluating patient, direct bedside care, chart review, placing orders, interpretation of diagnostic studies, discussion with consultants, patient, and family members, as well as other required patient management activities. This time is exclusive of all separately billable procedures, and teaching time and separate from and in addition to any other critical care service time. Thank you for allowing us to participate in the care of this patient. Please refer to my attending physician's documentation for any further recommendations. (2) Thrombocytopenia: (3) Neutropenia: (4) Symptomatic anemia: (5) T-cell lymphoma: (6) GERD (gastroesophageal reflux disease): History of Present Illness Attending Physician: Cisco Cruz MD History of Present Illness Mr. Wynn is a 43-year-old male from the [facility] long term with T-cell lymphoma undergoing CHOPE chemotherapy with last treatment 8 days ago, who presented to the emergency department with complaints of generalized weakness and lightheadedness. His routine blood work earlier today demonstrated recurrence of pancytopenia with severe thrombocytopenia with platelet count of 6000, neutropenia with a WBC 0.14, and anemia with hemoglobin 7 and hematocrit 21. He was mildly tachycardic and hypotensive on arrival with pale appearance, remained afebrile. Hematology oncology was consulted in regards to admission versus transfer to tertiary center, and opted for plan to admit and transfuse with platelets and irradiated RBCs. 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 On arrival to the ICU the patient is alert and oriented and hemodynamics are within normal limits following first unit of irradiated RBC transfusion. Patient states that his symptoms have mildly improved but he is still feeling very weak and fatigued. He currently denies dizziness, syncope, headaches, shortness of breath, fevers, cough, chest pain, palpitations, abdominal pain, nausea or vomiting, diarrhea, or changes in urine stream or foul-smelling urine. He denies bleeding, hemoptysis, hematemesis, or dark tarry stools. Allergies Allergy/AdvReac Type Severity Reaction Status Date / Time No Known Drug Allergies Allergy Unknown Verified 08/22/19 18:11 Home Medications Home Medications Medication Instructions Recorded Confirmed Type omeprazole 40 mg PO DAILY 12/11/18 08/22/19 History bisacodyl 5 mg PO DAILY PRN 06/25/19 08/22/19 History docusate sodium 100 mg PO BID 06/25/19 08/22/19 History acyclovir 400 mg PO BID 07/17/19 08/22/19 History allopurinol 300 mg PO DAILY 07/17/19 08/22/19 History fluconazole 400 mg PO DAILY 07/17/19 08/22/19 History imipramine HCl 10 mg PO HS 07/17/19 08/22/19 History oxycodone 10 mg PO Q4 PRN 07/17/19 08/22/19 History sulfamethoxazole-trimethoprim 1 tab PO DAILY 07/17/19 08/22/19 History atenolol 50 mg PO DAILY 07/26/19 08/22/19 History oxycodone 40 mg PO BID 07/26/19 08/22/19 History Neupogen 480 mcg SUBCUT DAILY 08/02/19 08/22/19 History prochlorperazine maleate 10 mg PO QID PRN 08/02/19 08/22/19 History [Compazine] Magic Swizzle 30 ml PO QID 08/22/19 08/22/19 History bacitracin zinc 1 applic TOPICAL Q8H 08/22/19 08/22/19 History itraconazole 200 mg PO DAILY 08/22/19 08/22/19 History levofloxacin 750 mg PO DAILY 08/22/19 08/22/19 History Patient History Medical History 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 Rivas 06/16/19 Family History Other Family history non-contributory Social History Preferred Language: Belarusian Communication Ability: Effective Security Assurance Analyst Required: No Beliefs That Will Affect Care: None marital status: Single Current Living Situation: Other Current Living Situation Comment: [facility] Other Information That Helps Us Care for You: No Feels Safe at Home: Yes Safety Concerns: Feels Safe At This Time Smoking Status: Former smoker Tobacco Type: cigarettes ; Second Hand Exposure: Yes ; Hx Alcohol Use: No Hx Substance Use: Yes substance use type: opiates and IV drugs Review of Systems Review of Systems: All systems reviewed & are unremarkable except as noted in HPI & below Physical Exam Constitutional: + ill appearing and + lethargic Pallor, anasarca Eyes: PERRL, conjunctivae normal, anicteric sclerae ENMT: external ear and nose normal, oropharynx normal Neck: trachea midline, no thyromegaly Respiratory: normal respiratory effort, lungs clear to auscultation Cardiovascular: RRR, no murmur, no edema Heart Sounds: normal S1 and normal S2 Vessels: no JVD Extremities: normal capillary refill Gastrointestinal (Abdomen): normal bowel sounds, soft, nontender, no hepatosplenomegaly Neurologic: PERRL, EOMI, accommodation nl, no face palsy, no dysarthria Psychiatric: A+Ox3, euthymic affect Results & Data Results & Data ([facility]) Vital Signs (Past 12 Hours) Vital Signs Temp Pulse Pulse Resp BP BP Pulse Ox 08/22/19 23:29 36.6 C 84 16 94/70 L 100 08/22/19 22:40 36.5 C 86 18 116/84 95 08/22/19 22:09 87 18 116/66 100 08/22/19 21:50 84 14 94 08/22/19 21:40 36.8 C 98 H 20 89/57 L 97 08/22/19 21:30 86 13 89/57 L 94 08/22/19 21:10 37.1 C 90 20 92/61 L 93 08/22/19 21:07 96 H 16 92/61 L 96 08/22/19 21:00 90 19 91/52 L 92 08/22/19 20:55 37.1 C 92 H 20 92/61 L 97 08/22/19 20:52 37.6 C H 92 H 14 93/57 L 93 08/22/19 20:40 91 H 20 90/62 L 94 08/22/19 20:39 37.4 C 94 H 20 90/62 L 94 08/22/19 20:30 93 H 21 97/64 L 96 08/22/19 20:26 90 17 91/57 L 94 08/22/19 20:23 37.2 C 96 H 22 91/57 L 96 08/22/19 20:06 37.3 C 107 H 20 90/70 L 97 08/22/19 20:01 105 H 14 90/70 L 100 08/22/19 19:30 91 H 14 118/57 L 93 08/22/19 19:16 102 H 16 90/54 L 91 08/22/19 18:23 103 H 21 106/63 96 08/22/19 18:22 18 106/63 95 08/22/19 18:05 95 08/22/19 16:14 37.2 C 126 H 18 89/63 L 97 Coding Level of Care Code Critical Care 1st 30-74 mins Diagnoses Pancytopenia due to antineoplastic chemotherapy D61.810; T45.1X5A Thrombocytopenia D69.6 Neutropenia D70.1; T45.1X5A Neutropenia type: secondary to cancer chemotherapy Symptomatic anemia D64.9 T-cell lymphoma C85.90 GERD (gastroesophageal reflux disease) K21.9 (1) Neutropenia Neutropenia type: secondary to cancer chemotherapy Qualified Code(s): D70.1 - Agranulocytosis secondary to cancer chemotherapy; T45.1X5A - Adverse effect of antineoplastic and immunosuppressive drugs, initial encounter
--- NOTE | 2019-08-22 23:34 | Procedure Note ---
Procedure Note Date of Service August 22, 2019 Note ENDURANCE CATHETER PROCEDURE NOTE: Procedure: Longterm Indwelling Peripherally Inserted IV Catheter Placement Attending: Dr. Cisco Cruz Provider: ANUSHA Singleton Indication: Need for IV Access, Poor Vascular Access Anesthesia:Lidocaine 1% Verbal consent was obtained from patient prior to performing the procedure. A time-out was completed verifying correct patient, procedure, site, positioning, and implant(s) or special equipment if applicable. Utilizing bedside ultrasound, vascularity of the right upper extremity was assessed. Vessel size was noted for appropriate catheter selection and skin was marked with gentle pressure. Patients right upper extremity was prepped and draped in the usual sterile fashion utilizing chlorhexidine. Ultrasound guidance was used to aid needle placement. A 20 g Endurance Catheter was introduced into the right brachial vein under direct ultrasound guidance. Guide wire was easily deployed without resistance. Catheter was threaded over the guide wire without resistance and the entire apparatus was removed intact. Good venous blood return was noted in the catheter. The IV catheter was easily flushed with sterile saline flush. Sterile clave was attached to the end of the catheter and good blood return was again noted. Tourniquet was released. StatLock device and sterile dressing were applied. The patient tolerated the procedure well. Blood Loss: Minimal Complications: None Procedural Ultrasound Guidance: Procedure Date: 08/22/2019 Indication: Poor Vascular Access Attending: Dr. Justin Cruz Povider: ANUSHA Singleton Artery/Veins Identified: YES Access confirmed in Vein with ultrasound: YES Complications: NONE Patient tolerated procedure: WELL Coding
[2019-08-22] MEDS: MAGNESIUM SULFATE / D5W 1 GM/100 ML BAG IV SCH (23:35)
[2019-08-23] MEDS: OXYCODONE HCL 40 MG TABCR (OXYCONTIN) PO SCH ×2 (00:17→07:52)
[2019-08-23] MEDS: Magic Swizzle w/Glycerin 240mL MT SCH ×4 (00:18→16:43)
[2019-08-23] MEDS: DEXTROSE 5% IV SCH ×2 (00:22→10:50)
[2019-08-23] MEDS: ACYCLOVIR SOD IV SCH ×2 (00:22→10:50)
[2019-08-23] MEDS: MAGNESIUM SULFATE / D5W 1 GM/100 ML BAG IV SCH (00:35)
[2019-08-23] MEDS: BACITRACIN OINT 15 GM TUBE EXT SCH ×3 (01:14→13:08)
[2019-08-23] MEDS ORDERED: PIPERACILLIN/TAZOBACTAM 3.375 GM in DEXTROSE 5% 100 ML IV SCH (04:00)
[2019-08-23] MEDS ORDERED: SODIUM CHLORIDE 0.9% 250 ML IV PRN (05:27)
[2019-08-23 05:28] LABS: Hematocrit (blood only) 19.3 % (42-52); Hemoglobin 6.7 g/dL (14.0-18.0); Mean Corpuscular Hemoglobin 29.1 pg (25-34); Mean Corpuscular Hgb Conc 34.7 g/dL (32-36); Mean Corpuscular Volume 83.9 fL (80-100); Mean Platelet Volume 8.9 fL (7.4-10.4); Platelet Count 41 K/uL (130-400); RDW Coefficient of Variation 15.7 % (11.5-14.5); RDW Standard Deviation 47.8 fL (36.4-46.3); White Blood Count 0.06 K/uL (4.8-10.8)
[2019-08-23 05:30] LABS: INR 1.1 (0.9-1.1); Prothrombin Time 11.2 Seconds (9.0-12.0)
[2019-08-23 05:54] LABS: Albumin Level 2.3 gm/dl (3.4-5.0); Bilirubin,Total 1.9 mg/dl (0.2-1); Calcium 8.5 mg/dl (8.5-10.1); Creatinine Clr Calc Pharmacy 125.4 ml/min; Est GFR (African American) 127.1; Est GFR (Non-African American) 109.6; Phosphorus 2.4 mg/dl (2.5-4.9); Total Protein 5.2 gm/dl (6.4-8.2)
[2019-08-23 06:11] LABS: Bilirubin Direct 0.7 mg/dl (0-0.2)
[2019-08-23] MEDS: OXYCODONE HCL IR 5 MG TAB (IMMEDIATE RELEASE) PO PRN ×2 (08:08→13:10)
[2019-08-23] MEDS ORDERED: FLUCONAZOLE 100 MG TAB PO SCH (09:00)
[2019-08-23] MEDS ORDERED: DOCUSATE SODIUM 100 MG CAP PO SCH (09:00)
[2019-08-23] MEDS ORDERED: allopurinoL 300 MG TAB PO SCH (09:00)
[2019-08-23] MEDS ORDERED: FILGRASTIM 480 MCG/1.6 ML VIAL SQ SCH (09:00)
[2019-08-23] MEDS ORDERED: PANTOprazole 40 MG TAB PO SCH (09:00)
[2019-08-23] MEDS ORDERED: ITRACONAZOLE 200 MG PO SCH (09:00)
[2019-08-23] MEDS ORDERED: levoFLOXacin 750 MG TAB PO SCH ×2 (09:00→11:00)
[2019-08-23] MEDS ORDERED: NON-FORMULARY MEDICATION (Omeprazole 40 MG) PO SCH (09:00)
[2019-08-23] MEDS ORDERED: SULFA/TRIMETH 400/80MG TAB PO SCH (09:00)
--- NOTE | 2019-08-23 09:23 | Critical Care Progress Note ---
Date of Service August 23, 2019 Assessment & Plan (1) Pancytopenia: Impression: 43-year-old male with history of T-cell lymphoma currently being treated with etoposide plus CHOP admitted from shelter with symptomatic anemia and pancytopenia. He is responded to platelet transfusions and is recei ving his fourth unit of packed cells currently. His symptoms of significantly improved. He had mild hypotension on presentation likely secondary to hypovolemia which has resolved. There are no fevers or signs of neutropenic fever which would require broad-spectrum antibiotics. Recommendations: 1. Grade 4 pancytopenia: Secondary to patient's chemotherapy. Discussed with medical oncology today. Will complete the fourth unit of packed cells that the patient is currently receiving. He is received 3 units of platelets with improvement in his platelet count. He remains profoundly neutropenic. Would recommend that he be dismissed from the hospital as soon as his hemoglobin is stable. There is no indication for neutropenic fever or broad-spectrum antibiotics at this point time. 2. T-cell lymphoma: Management per medical oncology. 3. Transient hypotension: Likely reflects hypovolemia. Now resolved. 4. Weight loss: The patient is being considered for a feeding tube in the outpa tient setting. Would await until his counts resolved from his current chemotherapy. No need to keep him n.p.o. at this point in time. The patient does not require intensive care unit monitoring at this point in time and likely does not require hospitalization. The admitting hospitalist service will be contacted by nursing and he can either be transferred out of the ICU or returned back to shelter. Feel free to contact us if we can be of additional assistance. Admission and Anticipated Discharge Date Admission Date: August 22, 2019 Review of Systems Review of Systems: All systems reviewed & are unremarkable except as noted in HPI & below Physical Exam Constitutional: WD/WN, vitals as above Neck: trachea midline, no thyromegaly Respiratory: normal respiratory effort, lungs clear to auscultation Cardiovascular: RRR, no murmur, no edema Gastrointestinal (Abdomen): normal bowel sounds, soft, nontender, no hepatosplenomegaly Musculoskeletal: Extremities: extremities normal to inspection Skin: no rashes, warm and dry Neurologic: Nonfocal exam Lymphatic: no cervical lymphadenopathy Results & Data Results & Data ([facility]) Vital Signs (Past 12 Hours) Vital Signs Temp Pulse Pulse Resp BP BP Pulse Ox 08/23/19 08:56 36.8 C 92 H 20 118/76 94 08/23/19 08:41 36.8 C 91 H 20 116/80 97 08/23/19 08:25 37.1 C 90 20 121/80 96 08/23/19 08:12 37.1 C 94 H 20 117/78 96 08/23/19 08:00 90 08/23/19 07:40 36.6 C 92 H 20 103/68 99 08/23/19 07:00 36.9 C 99 H 20 114/64 98 08/23/19 06:40 37.1 C 93 H 16 114/64 99 08/23/19 06:10 37 C 95 H 16 116/72 99 08/23/19 05:55 36.9 C 97 H 16 109/76 98 08/23/19 05:39 37.1 C 99 H 16 120/72 99 08/23/19 04:45 37.1 C 96 H 16 103/56 L 99 08/23/19 04:17 37.2 C 96 H 16 91/61 L 99 08/23/19 04:02 37.1 C 99 H 16 98/56 L 98 08/23/19 03:46 36.8 C 103 H 18 103/59 L 99 08/23/19 03:31 37.2 C 100 H 16 107/65 97 08/23/19 03:12 37.1 C 102 H 18 103/60 98 08/23/19 02:57 37.2 C 98 H 16 93/60 L 97 08/23/19 02:42 37.3 C 101 H 16 104/59 L 92 08/23/19 02:06 37.3 C 101 H 16 112/63 96 08/23/19 01:50 37.1 C 99 H 15 106/55 L 92 08/23/19 00:50 37.3 C 100 H 16 120/74 99 08/23/19 00:20 37.1 C 84 16 111/63 99 08/23/19 00:05 37.3 C 87 16 116/65 99 08/22/19 23:49 37.6 C H 89 18 109/75 100 08/22/19 23:29 36.6 C 84 16 94/70 L 100 08/22/19 22:40 36.5 C 86 18 116/84 95 08/22/19 22:09 87 18 116/66 100 08/22/19 21:50 84 14 94 08/22/19 21:40 36.8 C 98 H 20 89/57 L 97 08/22/19 21:30 86 13 89/57 L 94 Laboratory Results 08/23/19 04:59 08/23/19 04:59 Diagnostic Findings Chest x-ray from 09/18/2019 was reviewed. There is elevation of the left hemidiaphragm. Port is in place. There are some hazy bibasilar opacities unchanged from prior film July 17, 2019. Coding Level of Care Code 13823 Subseq Hosp Care Lvl 3 Diagnoses Pancytopenia D61.818
[2019-08-23 12:20] LABS: Hematocrit (blood only) 25.2 % (42-52); Mean Corpuscular Hemoglobin 30.1 pg (25-34); Mean Corpuscular Hgb Conc 35.7 g/dL (32-36); Mean Corpuscular Volume 84.3 fL (80-100); Mean Platelet Volume 9.3 fL (7.4-10.4); Platelet Count 33 K/uL (130-400); RDW Coefficient of Variation 15.6 % (11.5-14.5); RDW Standard Deviation 48.3 fL (36.4-46.3); Red Blood Count 2.99 M/uL (4.7-6.1)
--- NOTE | 2019-08-23 13:48 | Consultation Report ---
DATE OF CONSULTATION: 08/23/2019 MEDICAL ONCOLOGY CONSULTATION REASON FOR CONSULTATION: A 43-year-old intermediate inmate with anaplastic T-cell lymphoma, admitted for pancytopenia attributable to antineoplastic chemotherapy. 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 Diagnosis was established originally in 04/2019. The patient thus far has received 3 cycles of CHOP plus etoposide, initially started on 06/30/2019. He recently received cycle #3 cycle completed on 08/12/2019. The patient received granulocyte colony stimulating factor on day #4. Not surprisingly, the patient presents with severe pancytopenia attributable to chemotherapy. I was contacted by the Emergency Room physician alerting me the fact that his hemoglobin was in the 5 gram per deciliter range and a platelet count of 2000. He is also profoundly neutropenic. He was subsequently placed in the ICU because of fear of impending neutropenic fever and sepsis. The patient has been afebrile. His blood pressure was slightly decreased, which has responded to fluids and blood product. Visited with the patient at bedside this morning. He feels well and is devoid of a specific complaint. 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 He also suffers from a nutritional malnourishment, gastroesophageal reflux disease, hypertension, hypokalemia. PAST SURGICAL HISTORY: Excision of right posterior neck mass, bronchoscopy. MediPort placement, cholecystectomy. CURRENT MEDICATIONS: Includes levofloxacin 750 mg p.o. daily, itraconazole 200 mg p.o. daily, bacitracin zinc 1 application topically q. 8 hours, Magic Swizzle 30 mL p.o. q.i.d., Compazine 10 mg p.o. q. 6 hours p.r.n., he received Neulasta 6 mg subQ on 08/15/2019, oxycodone 40 mg p.o. b.i.d., atenolol 50 mg p.o. daily, Bactrim 1 tablet p.o. daily, imipramine 10 mg p.o. at bedtime, fluconazole 400 mg p.o. daily, allopurinol 300 mg p.o. daily, acyclovir 400 mg p.o. b.i.d., docusate sodium 100 mg p.o. b.i.d., bisacodyl 5 mg p.o. daily p.r.n., omeprazole 40 mg p.o. daily. DRUG ALLERGIES: No known drug allergies. SOCIAL HISTORY: The patient is currently incarcerated. He was a former smoker. Negative for alcohol. Had used opiates and IV drugs in the past. FAMILY HISTORY: Noncontributory. REVIEW OF SYSTEMS: CONSTITUTIONAL: Positive for fatigue, shortness of breath, dyspnea on exertion. No fevers, chills or sweats. SKIN: No rashes or lesions presently. No history of dermatoses. HEENT: Negative for headaches, lightheadedness or dizziness. No sinus symptoms, sore throat or dysphagia. HEART: Negative for coronary artery disease, no angina or palpitations. PULMONARY: Negative for COPD. No shortness of breath, dyspnea or orthopnea. No cough or hemoptysis. GASTROINTESTINAL: Negative for abdominal pain, nausea, vomiting, diarrhea or constipation, hematochezia or melena stools. GENITOURINARY: No hematuria, dysuria, urinary incontinence. PSYCHIATRIC: Negative for anxiety, depression or psychoses. ENDOCRINE: Negative for diabetes or thyroid disease. NEUROLOGIC: Negative for seizure, stroke or migraine headache. HEMATOLOGIC: Positive for pancytopenia attributable to chemotherapy. PHYSICAL EXAMINATION: GENERAL: Very pleasant 43-year-old gentleman lying supine, awake, alert and appropriate, in no acute distress. VITAL SIGNS: Temperature 37.0, pulse 93, respiratory rate 20, blood pressure 112/85. SKIN: Warm, dry, noncyanotic without petechia, rash or ecchymosis. HEENT: Head is atraumatic, normocephalic. Eyes: PERRLA, EOMI. Sclerae nonicteric. No conjunctival injection. Throat was examined. No evidence of thrush. No buccal lesions or ulcerations. Some mild erythema attributable to mucositis. NECK: Supple without JVD or thyromegaly. LYMPH: No cervical or supraclavicular palpable nodes. HEART: Regular rate and rhythm. No clicks, rubs, murmurs or gallops. LUNGS: Clear to auscultation bilaterally. ABDOMEN: Soft, nontender, nondistended without palpable hepatosplenomegaly. EXTREMITIES: No calf tenderness or swelling. No clubbing, cyanosis or edema. NEUROLOGICAL: Grossly intact. LABORATORY DATA: WBC 60, hemoglobin 6.7, platelet count 41,000. IMPRESSION: 1. Pancytopenia attributable to combination of CHOP and etoposide, last administered on 08/12/2019. 2. Anaplastic T-cell non-Hodgkin's lymphoma (stage IV disease). PLAN: The patient came to the Emergency Room yesterday. I was contacted by the ER physician alerting me to the patient's pancytopenic state. Recommended transfusion of 3 packed RBCs. He has also received 3 units of platelets. Platelet count has rebounded nicely, presently at 41,000. His hemoglobin remains somewhat low and will be rechecked after he receives his third unit of blood. Clearly, he needs to have laboratories at least twice weekly while on this regimen. I would not wait to transfuse him to the point where the patient bottoms out. Would set threshold at below 7 grams per deciliter for hemoglobin and 15,000 for platelets. The patient is due for his next cycle of chemotherapy in about 10 days I suspect, but would certainly delay him if the marrow has not completely recovered. I see no reason to keep him in the hospital. He is currently afebrile and on reasonable antimicrobial prophylaxis. I spoke to Dr. Cruz informally about the patient and have no issue with him being sent back to the [facility] once transfused. Thank you very much for allowing me to participate in his care. If any questions or concerns, feel free to contact me at any time. JAYDA
--- NOTE | 2019-08-23 14:29 | Electrocardiogram Report ---
Test Reason : Blood Pressure : / mmHG Vent. Rate : 101 BPM Atrial Rate : 101 BPM P-R Int : 136 ms QRS Dur : 098 ms QT Int : 350 ms P-R-T Axes : 028 009 017 degrees QTc Int : 453 ms Sinus tachycardia Nonspecific T wave abnormality Abnormal ECG When compared with ECG of 02-AUG-2019 13:22, No significant change was found Confirmed by Leodan Chirinos ([id number]) on 08/23/2019 2:28:43 PM Referred By: [facility] Confirmed By:Leodan Chirinos
[2019-08-23] MEDS ORDERED: SENNA 8.6 MG TAB PO SCH (21:00)
--- NOTE | 2019-08-23 22:05 | Billing Data ---
Date of Service August 23, 2019 Coding Level of Care Code Critical Care 1st 30-74 mins Time Spent (min) 50 Comment Total critical care time involved was 50 minutes
--- NOTE | 2019-08-23 22:06 | Billing Data ---
Date of Service August 23, 2019 Coding Level of Care Code Critical Care 1st - mins
[2019-08-23] MEDS ORDERED: OXYCODONE HCL 40 MG TABCR (OXYCONTIN) PO SCH (23:45)
--- NOTE | 2019-08-31 23:30 | Discharge Summary ---
Date of Service August 23, 2019 Principal Diagnosis Pancytopenia Discharge Exam Constitutional: cooperative, no acute distress Neck: normal visual inspection Respiratory: normal respiratory effort and able to speak in complete sentences; no respiratory distress, no labored breathing, no retractions, no cough and no audible wheezes Auscultation: lungs clear to auscultation bilaterally; no crackles, no rales, no rhonchi and no wheezes Cardiovascular: Rate/Rhythm: regular rate and regular rhythm Heart Sounds: normal S1 and normal S2; no gallop, no murmur and no cardiac rub Vessels: posterior tibial pulses present Extremities: no calf tenderness (BL calves notably larger/swollen appearing compared to ankles and feet), no pedal edema and no edema Gastrointestinal (Abdomen): Inspection/Auscultation: abdomen normal to inspection, normal bowel sounds and + scaphoid; abdomen not distended Percussion/Palpation: abdomen soft; abdomen nontender, no guarding, abdomen not rigid and no abdominal mass Discharge Data Allergies Allergy/AdvReac Type Severity Reaction Status Date / Time No Known Drug Allergies Allergy Unknown Verified 08/28/19 11:12 Consultations 08/22/19 19:17 ED Decision to Admit Stat 08/22/19 22:14 Consult Case Management - Discharge Planning Routine Consult Panel Cutter Routine 08/22/19 23:22 Consult Oncology Routine Hospital Course (1) Pancytopenia due to antineoplastic chemotherapy: Reason Critically Ill: 43-year-old male with T-cell lymphoma presents to the ICU with severe pancytopenia and neutropenia Neuro - [facility]: Negative Cardiac - Hypotensionresolved with blood product administration Troponin negative Sinus Rythm, QTC 452 Respiratory - Currently maintaining sats on room air Chest x-ray negative for acute process GI - Neutropenic diet LFTs within normal limits GERDPPI RENAL/LYTES - Creatinine stable, monitor electrolytes and replete as indicated - Strict I's and O's ENDO - No history diabetes thyroid disease HEME - T-cell lymphoma/pancytopeniapatient presents with severe pancytopenia following administration of CHOPE chemotherapy 8 days ago -Most likely myelosuppression related to chemo as patient previously presented with similar response following prior chemo treatment -will continue Neupogen - will follow-up Heme-Onc recommendations -Neutropenic cautions -Patient to receive 2 units irradiated RBCs, 3 units platelets initially. Will trend CBCs and transfuse as indicated Symptomatic anemiaimproving with irradiated RBC transfusions -Transfusion as above -Hemolysis and anemia labs pending -Continue to monitor and transfuse if indicated ID - Neutropenia-Currently afebrile, procalcitonin negative; initial hypotension improved with blood product administration; no evidence of active infection at this time -Blood cultures pending, MRSA nasal negative -Initially treated with vancomycin and Zosyn, however as there is no evidence for active infection, will de-escalate to empiric coverage with Bactrim, levofloxacin, fluconazole, and azithromycin for high risk neutropenic patient -Neutropenic precautions LINES/IV ACCESS - Central venous port, endurance catheter DVT PROPHYLAXIS - SCDs, holding anticoagulation for severe thrombocytopenia On day of discharge,pateint seen by Panel Cutter and Oncology. Appreciate input from oncology: The patient came to the Emergency Room yesterday. I was contacted by the ER physician alerting me to the patient's pancytopenic state. Recommended transfusion of 3 packed RBCs. He has also received 3 units of platelets. Platelet count has rebounded nicely, presently at 41,000. His hemoglobin remains somewhat low and will be rechecked after he receives his third unit of blood. Clearly, he needs to have laboratories at least twice weekly while on this regimen. I would not wait to transfuse him to the point where the patient bottoms out. Would set threshold at below 7 grams per deciliter for hemoglobin and 15,000 for platelets. The patient is due for his next cycle of chemotherapy in about 10 days I suspect, but would certainly delay him if the marrow has not completely recovered. I see no reason to keep him in the hospital. He is currently afebrile and on reasonable antimicrobial prophylaxis. I spoke to Dr. Cruz informally about the patient and have no issue with [facility] transf[facility]. (2) T-cell lymphoma: (3) Hypokalemia: (4) History of paroxysmal supraventricular tachycardia: (5) Symptomatic anemia: (6) Sepsis: Total Time Total Time Spent Total Time Spent (In Minutes): 31 Total Time Includes: Examination of the Patient, Discharge Planning, Medication Reconciliation and Communication With Other Providers Discharge Plan Discharge Items Patient Disposition: Home - Self-Care Reason For Visit: PANCYTOPENIA SECONDARY TO CHEMOTHERAPY Discharge Diagnosis: Pancytopenia Activity: Resume your previous activity Non-emergency contact: Primary Care Provider Call non-emergency contact if: you have any medication questions Follow-up/Referrals: Pablo OAKLEY [Primary Care Provider] - Diet: Regular Diet Texture: Dental soft (bite-sized) Addtl Attending Provider Instructions: Patient came in pancytopenic. Patient received transfusion of 3 packed RBCs. He has also received 3 units of platelets. Platelet count has rebounded nicely. He needs to have laboratories at least twice weekly while on this regimen. Oncologist would recommend a threshold at below 7 grams per deciliter for hemoglobin and 15,000 for platelets. Pending Studies at Discharge: No Stand-Alone Forms: [facility], Smoking Cessation Medications and DC Order Prescriptions: Continued docusate sodium 100 mg Capsule 100 mg PO BID RF: 0 bisacodyl 5 mg Tablet 5 mg PO DAILY PRN (Reason: Constipation) RF: 0 sulfamethoxazole-trimethoprim 400-80 mg Tablet 1 tab PO DAILY RF: 0 fluconazole 200 mg Tablet 400 mg PO DAILY RF: 0 acyclovir 400 mg Tablet 400 mg PO BID RF: 0 allopurinol 300 mg Tablet 300 mg PO DAILY RF: 0 imipramine HCl 10 mg Tablet 10 mg PO HS RF: 0 oxycodone 10 mg Tablet 10 mg PO Q4 PRN (Reason: Pain) RF: 0 atenolol 50 mg Tablet 50 mg PO DAILY RF: 0 oxycodone 40 mg Tablet,Oral Only,Ext.Rel.12 Hr 40 mg PO BID RF: 0 prochlorperazine maleate [Compazine] 10 mg Tablet 10 mg PO QID PRN (Reason: Nausea And Vomiting) RF: 0 Neupogen 480 mcg/0.8 mL Syringe 480 mcg SUBCUT DAILY RF: 0 itraconazole 10 mg/mL Solution 200 mg PO DAILY RF: 0 bacitracin zinc 500 unit/gram Ointment 1 applic TOPICAL Q8H RF: 0 levofloxacin 750 mg Tablet 750 mg PO DAILY RF: 0 Magic Swizzle 30 ml PO QID RF: 0 omeprazole 40 mg Capsule,Delayed Release(Dr/Ec) 40 mg PO DAILY RF: 0 No Action magnesium citrate [Citroma] Solution 296 ml PO DAILY PRN (Reason: Constipation) RF: 0 Discharge Orders: Discharge Order (Routine); Ordered 08/23/19 Ordered By: Parth Ang/Other Patient Handouts: Neutropenia, Thrombocytopenia, SCI Resources, Anemia Chemo Admission Data Admit Date/Time: 08/22/19 21:28 Attending Provider: Parth Lei Admit Provider: Lisa Petty Primary Care Provider: Pablo OAKLEY Other Providers: Aaron Weaver ; Cisco Cruz ; Meek Poe V. Other Interventions: Discharge Summary Assessment (RN) Last Done: 08/23/19 17:12 DC Date/Time DO NOT enter until pt leaves facility: 08/23/19 18:17 Coding Level of Care Code D/C Day Management >30 mins Diagnoses Pancytopenia due to antineoplastic chemotherapy D61.810; T45.1X5A T-cell lymphoma C85.90 Hypokalemia E87.6 History of paroxysmal supraventricular tachycardia Z86.79 Symptomatic anemia D64.9 Sepsis A41.9 Time Spent (min) 31
== END 2019-08-23 18:17 | DRG 809 ==
LOC: ED 15:52 → 1E 21:28 → SUATTDRO 21:28 → 1E 08-23 01:30